=== PATIENT | male | born 1975 | race Caucasian/White ===

== ENCOUNTER 2016-07-29 07:06 | Inpatient (IN) | payer OTHER ==
[2016-07-28 08:18] VITALS: BMI 29.8
[~2016-07-29 07:06] MED LIST: FAMOTIDINE 20 MG/2 ML VIAL IV PRN; HYDROmorphone 1 MG/ML 1 ML SYRINGE IVP PRN; LIDOCAINE 1% 20 ML VIAL (10MG/ML) FOR IV START INTRADERMA PRN; MIDAZOLAM 2 MG/2 ML VIAL IV PRN
[2016-07-29] MEDS ORDERED: LACTATED RINGERS 1,000 ML IV ONE ×3 (07:39→13:54)
[2016-07-29 07:53] LABS: Glucose,Whole Blood 326 mg/dL (75-99)
[2016-07-29] MEDS ORDERED: INSULIN LISPRO (humaLOG) 300 UNIT/3 ML VIAL SQ ONE ×2 (07:59→23:50)
[2016-07-29] MEDS ORDERED: DEXAMETHASONE SOD PHOS (MDV) 100 MG/10 ML VIAL IVP ONE (08:12)
[2016-07-29] MEDS ORDERED: ONDANSETRON 4 MG/2 ML VIAL IVP ONE (08:13)
[2016-07-29 08:23] LABS: Anisocytosis Slight; Basophils % (A) 0 %; Eosinophils # (A) 0.2 k/uL (0-0.7); Eosinophils % (A) 2 %; HCT 23.9 % (39.0-53.0); HDW 3.54; HGB 8.2 gm/dL (13.0-17.5); Luc # (Auto) 0.08; Luc % (Auto) 1; Lymphocytes # (A) 1.3 k/uL (1.0-4.8); Lymphocytes % (A) 14 %; MCH 33.7 pg (25.0-35.0); MCHC 34.5 g/dL (31.0-37.0); MCV 97.5 fL (80.0-100.0); Macrocytosis Slight; Mean Platelet Volume 6.8; Monocytes # (A) 0.5 k/uL (0-1.0); Monocytes % (A) 6 %; Neutrophils # (A) 6.7 k/uL (1.3-7.7); Neutrophils % (A) 77 %; Poikilocytosis Slight; RBC 2.45 m/uL (4.30-5.90); RDW 16.6 % (11.5-15.5); WBC 8.7 k/uL (3.8-10.6); WBC (Perox) 8.73
[2016-07-29 08:36] LABS: Potassium 3.3 mmol/L (3.5-5.1)
--- NOTE | 2016-07-29 08:52 | P.GSHP ---
History of Present Illness H&P Date: 07/29/16 Chief Complaint: Incarcerated umbilical hernia, malfunctioning CAPD catheter This a 41-year-old male referred from Dr. Triana. Patient has had issues with his CAPD catheter. He's had trouble flushing and draining the catheter. He is also had issues with an incarcerated umbilical hernia. He presents today for laparoscopic repair/revision of CAPD catheter and laparoscopic repair of umbilical hernia. - Constitutional Constitutional: Reports as per HPI Past Medical History Past Medical History: Diabetes Mellitus, Dialysis, Eye Disorder, GERD/Reflux, Hyperlipidemia, Hypertension, Renal Disease Additional Past Medical History / Comment(s): migraines, stage 5 kidney disease , peritoneal dialysis daily (overnight and 2x during the day), diabetic retinopathy History of Any Multi-Drug Resistant Organisms: None Reported Additional Past Surgical History / Comment(s): periotoneal dialysis catheter insertion 03/2014, left eye cataract, mult laser retinal surgeries both eyes Past Anesthesia/Blood Transfusion Reactions: No Reported Reaction Past Psychological History: No Psychological Hx Reported Smoking Status: Never smoker Past Alcohol Use History: Occasional Past Drug Use History: None Reported - Past Family History Mother Family Medical History: No Reported History Medications and Allergies Home Medications Medication Instructions Recorded Confirmed Type ALPRAZolam [Xanax] 0.25 mg PO BID 07/28/16 07/28/16 History Aspirin [Adult Low Dose Aspirin EC] 81 mg PO DAILY 07/28/16 07/28/16 History Atorvastatin [Lipitor] 40 mg PO HS 07/28/16 07/28/16 History Calcium Acetate [Phoslo] 667 mg PO TID 07/28/16 07/28/16 History Carvedilol [Coreg] 6.25 mg PO BID 07/28/16 07/28/16 History Cetirizine HCl [Zyrtec] 10 mg PO Q48H 07/28/16 07/28/16 History Citracal Tablet 0.5 mcg PO WE 07/28/16 07/28/16 History Divalproex [Depakote] 250 mg PO BID 07/28/16 07/28/16 History Famotidine 20 mg PO BID 07/28/16 07/28/16 History Insulin Detemir [Levemir] 20 unit SQ BID 07/28/16 07/28/16 History Insulin Lispro [humaLOG] 1 - 5 units SQ AC-TID PRN 07/28/16 07/28/16 History Magnesium Oxide 400 mg PO Q48H 07/28/16 07/28/16 History Megestrol Acetate 40 mg PO HS 07/28/16 07/28/16 History Omeprazole [PriLOSEC] 20 mg PO AC-BRKFST 07/28/16 07/28/16 History Potassium Chloride [K-Tab ER] 10 meq PO BID 07/28/16 07/28/16 History Sertraline [Zoloft] 50 mg PO HS 07/28/16 07/28/16 History Allergies Allergy/AdvReac Type Severity Reaction Status Date / Time pistachio nut Allergy throat Verified 07/28/16 08:07 swelling Surgical - Exam Vital Signs Temp Pulse Resp BP Pulse Ox 98.2 F 89 18 136/79 99 07/29/16 07:27 07/29/16 07:27 07/29/16 07:27 07/29/16 07:27 07/29/16 07:27 - General well developed, no distress - Eyes PERRL - ENT normal pinna - Neck no masses - Cardiovascular Rhythm: regular - Abdomen Abdomen: soft, non tender Hernia: umbilical, incarcerated (3 cm incarcerated umbilical hernia) Results - Labs 07/29/16 08:09 07/29/16 08:09 Abnormal Lab Results - Last 24 Hours (Table) 07/29/16 07/29/16 07/29/16 Range/Units 07:51 08:09 08:09 RBC 2.45 L (4.30-5.90) m/uL Hgb 8.2 L (13.0-17.5) gm/dL Hct 23.9 L (39.0-53.0) % RDW 16.6 H (11.5-15.5) % Potassium 3.3 L (3.5-5.1) mmol/L Creatinine 5.66 H* (0.66-1.25) mg/dL POC Glucose (mg/dL) 326 H (75-99) mg/dL Diabetes panel 07/29/16 Range/Units 08:09 Potassium 3.3 L (3.5-5.1) mmol/L BUN 18 (9-20) mg/dL Creatinine 5.66 H* (0.66-1.25) mg/dL Pituitary panel 07/29/16 Range/Units 08:09 Potassium 3.3 L (3.5-5.1) mmol/L BUN 18 (9-20) mg/dL Creatinine 5.66 H* (0.66-1.25) mg/dL Adrenal panel 07/29/16 Range/Units 08:09 Potassium 3.3 L (3.5-5.1) mmol/L BUN 18 (9-20) mg/dL Creatinine 5.66 H* (0.66-1.25) mg/dL Assessment and Plan Plan: Incarcerated umbilical hernia, malfunctioning CAPD catheter. We'll perform laparoscopic repair of umbilical hernia and replacement/revision of CAPD catheter.
[2016-07-29] MEDS ORDERED: fentaNYL (PF) 50 MCG/ML 2 ML AMP ONE (08:58)
[2016-07-29] MEDS ORDERED: LABETALOL 5 MG/ML VIAL MDV ONE (08:58)
[2016-07-29] MEDS ORDERED: ROCURONIUM BROMIDE 10 MG/ML 10 ML VIAL IV ONE (08:58)
[2016-07-29] MEDS ORDERED: PROPOFOL 10 MG/ML 20 ML VIAL IV ONE (08:58)
[2016-07-29] MEDS ORDERED: NEOSTIGMINE 1 MG/ML 10 ML VIAL ONE (08:58)
[2016-07-29] MEDS ORDERED: GLYCOPYRROLATE 0.2 MG/ML 2 ML VIAL ONE (08:58)
[2016-07-29] MEDS ORDERED: MIDAZOLAM 2 MG/2 ML VIAL ONE (08:58)
[2016-07-29] MEDS ORDERED: SODIUM CHLORIDE 0.9% 50 ML with ceFAZolin 2,000 MG IV ONE ×2 (08:58)
[2016-07-29] MEDS ORDERED: BUPIVACAIN-EPI 0.25%-1:200,000 30 ML VIAL SQ ONE (09:38)
[2016-07-29] MEDS ORDERED: MINERAL OIL 1 APPLIC/ML OIL MISCELLANE ONE (09:39)
[2016-07-29] MEDS ORDERED: SODIUM CHLORIDE 0.9% 500 ML IV ONE (09:42)
--- NOTE | 2016-07-29 10:23 | P.OP ---
Date of Procedure: 07/29/16 Preoperative Diagnosis: Incarcerated umbilical hernia CAPD catheter malfunction Postoperative Diagnosis: Umbilical hernia CAPD catheter malfunction Procedure(s) Performed: Laparoscopic repair of umbilical hernia Laparoscopic placement of CVP catheter Labs removal of existing CAPD catheter Anesthesia: GETA Estimated Blood Loss (ml): 5 Pathology: none sent Condition: stable Disposition: PACU Description of Procedure: The patient's placed the operative table in the supine position. He received general anesthesia. His abdomen was prepped and draped usual sterile fashion. Using a Veress needle in the left upper quadrant the peritoneal cavity was entered. The abdomen insufflated and after adequate insufflation a 5 mm trocar was placed under direct visitation into the perineal cavity. Next the laparoscope placed into the peritoneal cavity. The patient had an umbilical hernia. His CVP catheter was visualized. CAPD catheter was in the right pelvis. At this point a 10 mm trochars placed the left lateral position. And then the umbilical hernia was repaired using 2-0 Ethibond and the still right device and timeout suture. Once the hernia was repaired. The CAPD catheter cuff site was incised and then using blunt and sharp dissection the CAPD catheter cuff at the fascial level was dissected and then the catheter was withdrawn from the peritoneal cavity. The fascia was closed with 0 Vicryl suture. Next the new CAPD catheter was introduced through the left lateral trocar site. It was placed into the pelvis of the peritoneal cavity. Another 5 mm trocar was placed in the left periumbilical area and then the catheter was drawn up through the 5 mm trocar. The fascial umbilical cuff was position at the level of the external oblique. The catheter was then tunneled and brought out through the 10 mm trocar site. The CT catheter was positioned into the pelvis. At this point the trochars withdrawn. The skin was closed interrupted 3-0 Monocryl suture. Dermabond was applied. Patient was sent to recovery in stable condition.
[2016-07-29] MEDS ORDERED: hydrALAZINE HCL 20 MG/ML 1 ML VIAL IVP ONE ×2 (10:45→11:13)
[2016-07-29] MEDS ORDERED: METOPROLOL TARTRATE 5 MG/5 ML VIAL IVP ONE ×2 (10:50→11:24)
[2016-07-29 11:26] LABS: Glucose,Whole Blood 248 mg/dL (75-99)
[2016-07-29] MEDS ORDERED: LABETALOL 5 MG/ML VIAL MDV IVP ONE (12:16)
[2016-07-29] MEDS ORDERED: NALOXONE 0.4 MG/ML 1 ML VIAL IV PRN (13:12)
[2016-07-29] MEDS ORDERED: ONDANSETRON 4 MG/2 ML VIAL IVP PRN (13:12)
[2016-07-29 17:05] LABS: Troponin I 0.015 ng/mL (0.000-0.034)
[2016-07-29 17:29] LABS: Creatine Kinase MB 13.3 ng/mL (0.0-2.4)
[2016-07-29] MEDS ORDERED: DARBEPOETIN ALFA 40 MCG/0.4 ML SYRINGE SQ SCH (20:00)
[2016-07-29 20:45] LABS: Calcium 8.1 mg/dL (8.4-10.2); Potassium 4.1 mmol/L (3.5-5.1); Total Bilirubin 0.3 mg/dL (0.2-1.3); Total Protein 4.7 g/dL (6.3-8.2)
[2016-07-29] MEDS: FAMOTIDINE 20 MG TAB PO SCH (21:25)
[2016-07-29] MEDS: CALCIUM ACETATE 667 MG CAP PO SCH (21:25)
[2016-07-29] MEDS: CARVEDILOL 6.25 MG TAB PO SCH (21:25)
[2016-07-29] MEDS: SERTRALINE 50 MG TAB PO SCH (21:25)
[2016-07-29] MEDS: POTASSIUM CHLORIDE ER 10 MEQ TAB.ER.PRT PO SCH (21:25)
[2016-07-29] MEDS: DIVALPROEX 250 MG TABLET.DR PO SCH (21:25)
[2016-07-29] MEDS: MEGESTROL 40 MG TAB PO SCH (21:26)
[2016-07-29] MEDS: ALPRAZolam 0.25 MG TAB PO SCH (21:28)
[2016-07-29] MEDS: DIALYSIS (PERITONL) DEX 4.25% 2,000 ML INTRAPERIT SCH (22:00)
[2016-07-29 22:08] LABS: Glucose,Whole Blood 346 mg/dL (75-99)
[2016-07-29 22:12] LABS: Troponin I 0.013 ng/mL (0.000-0.034)
[2016-07-29 22:15] LABS: Creatine Kinase MB 10.8 ng/mL (0.0-2.4)
[2016-07-29] MEDS: ATORVASTATIN 40 MG TAB PO SCH (23:16)
[2016-07-29] MEDS: INSULIN DETEMIR 100 UNIT/ML 10 ML VIAL SQ SCH (23:39)
--- NOTE | 2016-07-29 23:51 | HP ---
DATE OF ADMISSION: 07/29/2016 CHIEF COMPLAINT: ST-T changes on the EKG. HISTORY OF PRESENT ILLNESS: This is a 41-year-old gentleman with a past medical history of diabetes mellitus, type 2, history of chronic renal failure, stage V, on peritoneal dialysis, history of GERD, hypertension, hyperlipidemia, history of migraines, being followed by Dr. Barlow in the outpatient setting. He was apparently receiving dialysis catheter replacement as well as laparoscopic repair of umbilical hernia by Dr. Maxwell. During the procedure ST-T change was suspected and EKG also confirmed ST-T changes in the anterior leads. Patient was admitted for further evaluation and observation also. There is no history of any fever, rigor or chills, no history of headache, loss of consciousness, chest pain, palpitation, seizures. PAST MEDICAL HISTORY: 1. History of diabetes mellitus, type 2, on peritoneal dialysis. 2. History of GERD. 3. Hypertension. 4. Hyperlipidemia. 5. History of migraine. Medications prior to admission include: 1. Humalog 1 to 5 before meals t.i.d. p.r.n. 2. Levemir 20 units subcutaneously b.i.d. 3. Citracal 0.5 mg on Wednesdays. 4. Zoloft 50 mg at bedtime. 5. K-Tab ER 10 mEq p.o. b.i.d. 6. Prilosec 20 mg before breakfast. 7. Megace 40 mg p.o. at bedtime. 8. Magnesium oxide 400 mg p.o. q.48 hours. 9. Famotidine 20 mg p.o. b.i.d. 10. Depakote 250 mg p.o. b.i.d. 11. Zyrtec 10 mg p.o. q.48 hours. 12. Coreg 6.25 mg p.o. b.i.d. 13. PhosLo 667 p.o. t.i.d. 14. Lipitor 40 mg at bedtime. 15. Aspirin 81 mg p.o. daily. 16. Xanax 0.25 p.o. b.i.d. 17. Hydrocodone 7.5 mg q.4 p.r.n. ALLERGIES: PISTACHIO NUTS. FAMILY HISTORY: No history of heart disease or strokes in the family. SOCIAL HISTORY: No history of smoking. No history of alcohol intake. REVIEW OF SYSTEMS: ENT: No diminishing hearing. No diminished vision. CARDIOVASCULAR SYSTEM: As mentioned earlier. RESPIRATORY SYSTEM: As mentioned earlier. GI: As mentioned earlier. : As mentioned earlier. NERVOUS SYSTEM: No numbness or weakness. ALLERGY/IMMUNOLOGY: No asthma, hayfever. MUSCULOSKELETAL: As mentioned earlier. HEMATOLOGY/ONCOLOGY: No history of anemia. ENDOCRINE: Diabetes mellitus. CONSTITUTIONAL: As mentioned earlier. DERMATOLOGY: Negative. RHEUMATOLOGY: Negative. PSYCHIATRY: As mentioned earlier. PHYSICAL EXAMINATION: Patient is alert and oriented x3. Pulse is 103, blood pressure 160/84, respiration 16, temperature 98.2, pulse ox 97% on room air. HEENT: Conjunctivae normal. Oral mucosa moist. NECK: No jugular venous distention. No carotid bruit. No lymph node enlargement. CARDIOVASCULAR SYSTEM: S1, S2 muffled. No S3. ejection systolic murmur. RESPIRATORY SYSTEM: Breath sounds diminished at the bases. No rhonchi. No crackles. ABDOMEN: Soft. Status post surgery. LEGS: No edema. No swelling. NERVOUS SYSTEM: Higher functions as mentioned earlier. Moves all 4 limbs. No focal motor or sensory deficit. LYMPHATICS: No lymph node palpable in neck, axillae or groin. SKIN: No ulcer, rash, bleeding. JOINTS: No active deforming arthropathy. LABS: WBC 8.6, hemoglobin 8.2. Otherwise, creatinine is 5.66. CK-MB is 13.8. Troponin 0.015. Accu-Cheks are 248. ASSESSMENT: 1. ST-T changes on the EKG, possibly unstable angina. 2. Increased CK-MB with normal troponins. 3. Chronic renal failure, on peritoneal dialysis. 4. Diabetes mellitus, type 1. 5. Hypokalemia. 6. Anemia, normocytic; anemia of chronic renal disease. 7. Laparoscopic repair of umbilical hernia and laparoscopic placement of a CVP catheter today. 8. History of chronic kidney disease, stage V. 9. History of gastroesophageal reflux disease. 10. History of diabetic retinopathy. 11. History of hypertension. 12. Hyperlipidemia. 13. History of migraine. 14. History of left eye cataract. 15. History of multiple laser retinal surgeries. 16. FULL CODE. RECOMMENDATIONS AND DISCUSSION: This 41-year-old gentleman who presented after surgery, at this time I recommend continuing the current medication, continuing with symptomatic treatment. Complete the troponin x3. Resume the home medication. Monitor blood sugars closely. Cardiology consultation. The EKG did show some ST-T changes. Will continue to monitor to rule out the possibility of acute coronary event. Prognosis guarded because of multiple complex medical issues. Further recommendations to follow. Discussed with family and patient, who understand and agree. A copy of this dictation is being forwarded to Dr. Barlow, who is the primary physician. FABIANA
[2016-07-30] MEDS: DIALYSIS (PERITONL) DEX 4.25% 2,000 ML INTRAPERIT SCH ×3 (00:06→16:22)
[2016-07-30 03:40] LABS: Anisocytosis Slight; Basophils % (A) 0 %; CH 33.6; Eosinophils % (A) 0 %; HCT 23.5 % (39.0-53.0); HDW 3.38; HGB 8.1 gm/dL (13.0-17.5); Luc % (Auto) 1; Lymphocytes # (A) 1.2 k/uL (1.0-4.8); Lymphocytes % (A) 10 %; MCH 34.2 pg (25.0-35.0); MCHC 34.6 g/dL (31.0-37.0); MCV 98.9 fL (80.0-100.0); Macrocytosis Slight; Mean Platelet Volume 6.8; Monocytes # (A) 0.7 k/uL (0-1.0); Monocytes % (A) 5 %; Neutrophils # (A) 10.5 k/uL (1.3-7.7); Neutrophils % (A) 84 %; RBC 2.38 m/uL (4.30-5.90); WBC 12.5 k/uL (3.8-10.6); WBC (Perox) 12.91
[2016-07-30 03:58] LABS: Calcium 8.3 mg/dL (8.4-10.2); Potassium 3.9 mmol/L (3.5-5.1)
[2016-07-30 04:14] LABS: Troponin I 0.013 ng/mL (0.000-0.034)
[2016-07-30 04:26] LABS: Creatine Kinase MB 9.6 ng/mL (0.0-2.4)
[2016-07-30 07:19] LABS: Glucose,Whole Blood 142 mg/dL (75-99)
[2016-07-30 08:00] LABS: Hemoglobin A1C 8.6 % (4.2-6.1)
[2016-07-30] MEDS: HYDROcodone/APAP 5-325MG 1 EACH TAB PO PRN (09:09)
[2016-07-30] MEDS: LACTATED RINGERS 1,000 ML IV SCH ×2 (09:12→12:01)
[2016-07-30] MEDS: CARVEDILOL 6.25 MG TAB PO SCH ×2 (11:17→21:22)
[2016-07-30] MEDS: INSULIN LISPRO (humaLOG) 300 UNIT/3 ML VIAL SQ SCH ×4 (11:18→21:23)
[2016-07-30] MEDS: CALCIUM ACETATE 667 MG CAP PO SCH ×3 (11:20→21:22)
[2016-07-30] MEDS: hydrALAZINE HCL 50 MG TAB PO SCH ×3 (11:21→21:22)
[2016-07-30] MEDS: FAMOTIDINE 20 MG TAB PO SCH (11:21)
[2016-07-30] MEDS: DIVALPROEX 250 MG TABLET.DR PO SCH ×2 (11:21→21:22)
[2016-07-30] MEDS: ASPIRIN 81 MG CHEW PO SCH (11:21)
[2016-07-30] MEDS: PANTOPRAZOLE 40 MG TABLET PO SCH (11:21)
[2016-07-30] MEDS: amLODIPine 5 MG TAB PO SCH ×2 (11:21→21:22)
[2016-07-30] MEDS: LORATADINE 10 MG TAB PO SCH (11:22)
[2016-07-30] MEDS: MAGNESIUM OXIDE 400 MG TAB PO SCH (11:22)
[2016-07-30] MEDS: POTASSIUM CHLORIDE ER 10 MEQ TAB.ER.PRT PO SCH ×2 (11:23→21:21)
[2016-07-30 12:08] LABS: Glucose,Whole Blood 125 mg/dL (75-99)
[2016-07-30] MEDS: ALPRAZolam 0.25 MG TAB PO SCH ×2 (12:25→21:21)
[2016-07-30] MEDS: INSULIN DETEMIR 100 UNIT/ML 10 ML VIAL SQ SCH ×2 (12:26→21:21)
--- NOTE | 2016-07-30 14:52 | CONS ---
DATE OF CONSULTATION: REASON FOR CONSULTATION: End-stage renal disease. HISTORY OF PRESENT ILLNESS: Patient is a 41-year-old white male with a history of end-stage renal disease on peritoneal dialysis. He was seen by Dr. Maxwell for malfunctioning PD catheter and he had the catheter replaced and repair of the small hernia as well. Patient has had issues with chronic fluid overload, significant hyperglycemia at home and uncontrolled blood sugars. His blood pressure have also been elevated. I have discussed with him on multiple occasions to switch to hemodialysis but patient has not been very keen on switching to hemodialysis as he lives on [facility] and it will be difficult for him to come for treatment, especially during the winter. Last night there was significant weeping noted around the PD catheter; therefore peritoneal dialysis was not started. I did speak to Dr. Maxwell this morning and he will start with low volume exchanges at about 1 liter at a time. If the patient is not able to tolerate the peritoneal dialysis and the leaking persists, we will switch him to temporary hemodialysis while the new catheter heals. Even if there is no leaking I believe patient will need to be switched to hemodialysis as it will not be able to get his volume status under control given the significant volume overload. PAST MEDICAL HISTORY: End-stage renal disease, on peritoneal dialysis, gastroesophageal reflux disease, Type 2 diabetes, maintained on insulin, hypertension, hyperlipidemia, chronic kidney disease bone mineral disorder, chronic anemia, anemia of chronic disease. Medications prior to admission included: 1. Insulin. 2. Zoloft. 3. Potassium. 4. Prilosec. 5. Depakote. 6. Pepcid. 7. Magnesium. 8. Megace. 9. Zyrtec. 10. Coreg. 11. PhosLo. 12. Lipitor. 13. Aspirin. 14. Xanax. 15. [place]. ALLERGIES INCLUDE ( ). Family history is negative for kidney disease, SOCIAL HISTORY: Negative for smoking, drug abuse or alcohol abuse. REVIEW OF SYSTEMS: As per HPI. Other systems negative. On examination, the patient is currently comfortable, lying in bed, not in any acute distress. Blood pressure remains elevated at 231/109, heart rate 104 per minute. He is afebrile. Examination of the heart S1 and S2. Examination of the lungs: Bilateral breath sounds are heard. ABDOMEN: Soft, nontender. New catheter is in place. Examination of lower extremities shows 3 to 4+ edema bilaterally. [employer] exam is grossly intact. Labs show sodium 127, potassium 3.9, BUN 23, serum creatinine 6.5. Hemoglobin 8.1 g/dL. Troponin was 0.013. CKMB was 10.8. ASSESSMENT: 1. End-stage renal disease, on peritoneal dialysis, status post new PD catheter placement. Will start low-volume exchange and; however, I feel the patient will benefit from short-term hemodialysis and we can allow the catheter to seal. For now, I will start with 1 liter exchanges but this may not be enough to help correct his volume status. 2. Severe volume overload with no significant urine output. This needs to be addressed via dialysis and this is another reason why patient needs to switch to hemodialysis at least temporarily. We will try with 4.25% solution with starting at 1 liter exchanges. 3. Hypervolemic hyponatremia, expect improvement with improving volume status. 4. Anemia with no active bleeding noted. Anemia of chronic disease. The patient has had previous GI work-up. 5. Uncontrolled hypertension, partly volume sensitive. PLAN: Try 1 liter exchanges but I am strongly leaning toward starting hemodialysis, mainly given significant volume overload. It will also allow the catheter to seal over the next week or so and the blood pressure will also be better controlled with improved volume status.
--- NOTE | 2016-07-30 16:32 | P.PN ---
Progress Note - Text The patient's CAPD catheter site is clean. Apparently had some drainage from the skin site yesterday. On exam is lesser stable. His abdomen soft. Patient is currently arguing with the dialysis nurse whether or not he needs hemodialysis. I discussed with them that he should have temporary hemodialysis to bridge him until he can use his CAPD catheter. The patient will be transferred to the medical service.
[2016-07-30 17:09] LABS: Glucose,Whole Blood 82 mg/dL (75-99)
--- NOTE | 2016-07-30 17:17 | CONS ---
DATE OF CONSULTATION: Mr. Macario is a 41-year-old patient with end-stage renal disease on peritoneal dialysis. His primary care physician is Dr. Barlow. He has hypertension, hyperlipidemia, came into the hospital for inguinal hernia surgery and repositioning of his peritoneal dialysis catheter. He was found to be hypertensive and I was asked to see him regarding hypertension. This gentleman has hyperlipidemia, hypertension which is uncontrolled, type 2 diabetes mellitus and also end-stage renal disease on peritoneal dialysis. Please refer to Dr. Triana's detailed note for other information. PAST MEDICAL HISTORY: 1. End-stage renal disease and peritoneal dialysis. 2. Hypertension. 3. Hyperlipidemia. 4. Diabetes mellitus. Medications at home include: 1. Insulin. 2. Levemir. 3. Humalog. 4. Zoloft. 5. Megace. 6. Zyrtec. 7. Coreg. 8. Atorvastatin. 9. Aspirin. 10. Hydrocodone. On examination, blood pressure is 190/80, pulse rate is about 70 per minute, regular. HEENT: Unremarkable. Fundus was not examined by me. Neck is supple. There is JVD of 1 cm. No carotid bruit. Heart exam reveals S1, S2 with a short systolic murmur. Lungs reveal diminished air entry in bilateral lung elizabeth. ABDOMEN: Soft, nontender. The peroneal dialysis catheter is evident. There is some tenderness around that area. Lungs reveal diminished air entry. ABDOMEN: Soft, nontender. Lower extremities revealed trace edema, diminished pulses. CENTRAL NERVOUS SYSTEM: Grossly no focal deficits. IMPRESSION: 1. Uncontrolled hypertension. 2. End-stage renal disease on hemodialysis. 3. Type 2 diabetes mellitus. 4. History of degenerative joint disease. RECOMMENDATIONS: I am recommending Norvasc and hydralazine in addition to the Coreg for blood pressure control and this will be administered now and if blood pressure control is well controlled patient can be discharged. I will continue to see him as needed from a cardiac standpoint. Thank you very much for the consult.
--- NOTE | 2016-07-30 17:25 | PN ---
Patient is a 41-year-old with diabetes mellitus, end-stage renal disease, on peritoneal dialysis. He came in for elective hernia repair. His pain is well controlled. During the procedure there were some suspicious ST-T wave changes, because of which Cardiology evaluated the patient. Patient has volume overload secondary to end-stage renal disease, which should improve with exchanges. Patient also has hyponatremia due to hypervolemic hyponatremia. Nephrology evaluated the patient; patient may require at least temporary hemodialysis. Patient will be transferred to a regular floor. To address his renal issues, patient may need to stay in the hospital. REVIEW OF SYSTEMS: CARDIOVASCULAR: No chest pain, no orthopnea, no PND, no palpitations. PULMONARY: Denied any shortness of breath. No cough or hemoptysis. GASTROINTESTINAL: No diarrhea, nausea or vomiting. No abdominal pain. Normoactive bowel sounds. NEUROLOGIC: No headaches, no weakness, no numbness. Medications were reviewed. PHYSICAL EXAMINATION: VITAL SIGNS: Temperature 98.0, pulse of 104, respiratory rate of 16. Blood pressure is 156/83. Saturating at 98% on room air. GENERAL: The patient is alert and oriented x3, not in any acute distress. Well developed, well nourished. HEENT: Pupils are round and equally reacting to light. EOMI. No scleral icterus. No conjunctival pallor. Normocephalic, atraumatic. No pharyngeal erythema. No thyromegaly. CARDIOVASCULAR: S1 and S2 present. No murmurs, rubs, or gallops. PULMONARY: Chest is clear to auscultation, no wheezing or crackles. ABDOMEN: Defer to Surgery. MUSCULOSKELETAL: No joint swelling or deformity. EXTREMITIES: No cyanosis, clubbing, or pedal edema. NEUROLOGICAL: Gross neurological examination did not reveal any focal deficits. SKIN: No rashes. ASSESSMENT AND PLAN: 1. Volume overload and pulmonary edema secondary to end-stage renal disease and anuria, which is expected to improve with peritoneal dialysis or hemodialysis, as mentioned above. Patient has some social logistics, because of which he cannot be on hemodialysis. Refer to social work note for that. 2. End-stage renal disease, peritoneal dialysis-dependent. Nephrology is following the patient. Further management as per them. 3. Type 1 diabetes mellitus with diabetic nephropathy. Blood sugars are actually getting better at this point of time. Continue with present regimen and titrate accordingly. Patient's hemoglobin A1c is 8.6 consistent with uncontrolled blood sugars. 4. Leukocytosis; appears to be reactive. 5. Hypervolemic hyponatremia. 6. Diabetic retinopathy. 7. Hyperlipidemia. 8. Metabolic bone disease. 9. Recent hernia repair. Regarding that, patient is otherwise clinically doing okay. 10. Hyperlipidemia. 11. Depression, for which I will go ahead and continue his home medications. PLAN: As mentioned above.
[2016-07-30] MEDS ORDERED: CITRACAL PO SCH (18:28)
[2016-07-30 21:19] LABS: Glucose,Whole Blood 49 mg/dL (75-99)
[2016-07-30] MEDS: SERTRALINE 50 MG TAB PO SCH (21:21)
[2016-07-30] MEDS: ATORVASTATIN 40 MG TAB PO SCH (21:22)
[2016-07-30] MEDS ORDERED: DEXTROSE 50%-WATER 50 ML SYRINGE IVP ONE (21:25)
[2016-07-30] MEDS ORDERED: DEXTROSE 50%-WATER 50 ML SYRINGE IVP STA (21:26)
[2016-07-30 21:49] LABS: Glucose,Whole Blood 121 mg/dL (75-99)
[2016-07-31] MEDS ORDERED: hydrALAZINE HCL 20 MG/ML 1 ML VIAL IVP PRN (00:49)
[2016-07-31] MEDS: LACTATED RINGERS 1,000 ML IV SCH (01:58)
[2016-07-31 02:02] LABS: Glucose,Whole Blood 73 mg/dL (75-99)
[2016-07-31 06:47] LABS: Glucose,Whole Blood 68 mg/dL (75-99)
[2016-07-31 07:32] LABS: Anisocytosis Slight; CH 33.5; CHCM 33.9; HCT 25.4 % (39.0-53.0); HDW 3.33; HGB 8.9 gm/dL (13.0-17.5); MCH 34.6 pg (25.0-35.0); MCHC 34.9 g/dL (31.0-37.0); MCV 99.1 fL (80.0-100.0); Macrocytosis Slight; Mean Platelet Volume 6.7; RBC 2.57 m/uL (4.30-5.90); WBC 13.1 k/uL (3.8-10.6)
[2016-07-31 07:56] LABS: Glucose,Whole Blood 83 mg/dL (75-99)
[2016-07-31 07:59] LABS: Calcium 8.2 mg/dL (8.4-10.2); Potassium 4.5 mmol/L (3.5-5.1)
[2016-07-31] MEDS: DIVALPROEX 250 MG TABLET.DR PO SCH ×2 (09:56→20:56)
[2016-07-31] MEDS: POTASSIUM CHLORIDE ER 10 MEQ TAB.ER.PRT PO SCH (09:56)
[2016-07-31] MEDS: CARVEDILOL 6.25 MG TAB PO SCH ×2 (09:56→19:31)
[2016-07-31] MEDS: hydrALAZINE HCL 50 MG TAB PO SCH ×3 (09:56→21:26)
[2016-07-31] MEDS: amLODIPine 5 MG TAB PO SCH ×2 (09:57→20:57)
[2016-07-31] MEDS: FAMOTIDINE 20 MG TAB PO SCH (09:57)
[2016-07-31] MEDS: PANTOPRAZOLE 40 MG TABLET PO SCH (09:57)
[2016-07-31] MEDS: CALCIUM ACETATE 667 MG CAP PO SCH ×3 (09:57→19:30)
[2016-07-31] MEDS: ALPRAZolam 0.25 MG TAB PO SCH ×2 (10:03→20:56)
[2016-07-31] MEDS: INSULIN DETEMIR 100 UNIT/ML 10 ML VIAL SQ SCH ×2 (10:03→22:07)
[2016-07-31] MEDS: INSULIN LISPRO (humaLOG) 300 UNIT/3 ML VIAL SQ SCH ×4 (10:03→22:08)
[2016-07-31] MEDS: ASPIRIN 81 MG CHEW PO SCH (10:03)
[2016-07-31 12:18] LABS: Glucose,Whole Blood 111 mg/dL (75-99)
--- NOTE | 2016-07-31 14:16 | XR ---
EXAMINATION TYPE: XR chest 1V DATE OF EXAM: 07/31/2016 2:12 PM COMPARISON: NONE HISTORY: Chest pain TECHNIQUE: Single frontal view of the chest is obtained. FINDINGS: There is no focal air space opacity, pleural effusion, or pneumothorax seen. The cardiac silhouette size is within normal limits. The osseous structures are intact. IMPRESSION: 1. No acute process.
--- NOTE | 2016-07-31 15:43 | P.PN ---
Subjective Patient is seen in follow-up for end-stage renal disease. He is maintained on peritoneal dialysis. Patient had a malfunctioning PD catheter and had a new catheter placed this admission. He also had a hernia repair. Peritoneal dialysis has not been initiated since the new catheter has been placed. Patient 's currently resting in bed. Denies any chest pain or shortness of breath. He is eager to go home. Denies any vomiting or diarrhea. Pain is controlled. Vital signs are stable. General: The patient appeared well nourished and normally developed. HEENT: Head exam is unremarkable. Neck is without jugular venous distension. LUNGS: Lungs are clear to auscultation and percussion. Breath sounds decreased. HEART: Rate and Rhythm are regular. First and second heart sounds normal. No murmurs, rubs or gallops. ABDOMEN: Abdominal exam reveals normal bowel sounds. Non-tender and non- distended. No evidence of peritonitis. EXTREMITITES: 1+ edema. Objective - Vital Signs Vital signs: Vital Signs Temp 98.1 F 07/31/16 11:39 Pulse 107 H 07/31/16 11:39 Resp 18 07/31/16 11:39 BP 163/91 07/31/16 11:39 Pulse Ox 98 07/31/16 11:39 Intake & Output 07/30/16 07/31/16 07/31/16 18:59 06:59 18:59 Intake Total 1140 250 240 Balance 1140 250 240 Intake: Oral 1140 250 240 Other: Voiding Method CAPD CAPD Bedside Commode CAPD # Voids 0 - Labs CBC & Chem 7: 07/31/16 07:16 07/31/16 07:16 Labs: Abnormal Lab Results - Last 24 Hours (Table) 07/30/16 07/30/16 07/31/16 Range/Units 21:18 21:47 02:00 WBC (3.8-10.6) k/uL RBC (4.30-5.90) m/uL Hgb (13.0-17.5) gm/dL Hct (39.0-53.0) % RDW (11.5-15.5) % Sodium (137-145) mmol/L Chloride (98-107) mmol/L BUN (9-20) mg/dL Creatinine (0.66-1.25) mg/dL POC Glucose (mg/dL) 49 L 121 H 73 L (75-99) mg/dL Calcium (8.4-10.2) mg/dL 07/31/16 07/31/16 07/31/16 Range/Units 06:44 07:16 07:16 WBC 13.1 H (3.8-10.6) k/uL RBC 2.57 L (4.30-5.90) m/uL Hgb 8.9 L (13.0-17.5) gm/dL Hct 25.4 L (39.0-53.0) % RDW 17.0 H (11.5-15.5) % Sodium 129 L (137-145) mmol/L Chloride 94 L (98-107) mmol/L BUN 31 H (9-20) mg/dL Creatinine 7.58 H* (0.66-1.25) mg/dL POC Glucose (mg/dL) 68 L (75-99) mg/dL Calcium 8.2 L (8.4-10.2) mg/dL 07/31/16 Range/Units 12:12 WBC (3.8-10.6) k/uL RBC (4.30-5.90) m/uL Hgb (13.0-17.5) gm/dL Hct (39.0-53.0) % RDW (11.5-15.5) % Sodium (137-145) mmol/L Chloride (98-107) mmol/L BUN (9-20) mg/dL Creatinine (0.66-1.25) mg/dL POC Glucose (mg/dL) 111 H (75-99) mg/dL Calcium (8.4-10.2) mg/dL Assessment and Plan Plan: Assessment: #1. End-stage renal disease maintained on peritoneal dialysis. #2. Malfunctioning PD catheter status post new catheter placement as well as a hernia repair. #3. Hypertension with chronic kidney disease. #4. Chronic kidney disease mineral bone disease. #5. Insulin-dependent diabetes mellitus. #6. Volume overload. #7. Hypervolemic hyponatremia. Plan: Start 1 L peritoneal dialysis exchanges with 4.25 dextrose solution every 4 hours. I had a detailed discussion with the patient to transition over to hemodialysis temporarily for better volume and blood pressure control and to also allow the new peritoneal dialysis catheter to heal. He is refusing and absolutely does not want to do hemodialysis at this time. Maintain PhosLo with meals. Case was also discussed with Gen. surgery.
[2016-07-31] MEDS: DIALYSIS (PERITONL) DEX 4.25% 2,000 ML INTRAPERIT SCH ×2 (17:14→20:56)
[2016-07-31 17:27] LABS: Glucose,Whole Blood 137 mg/dL (75-99)
[2016-07-31 20:16] LABS: Glucose,Whole Blood 192 mg/dL (75-99)
[2016-07-31] MEDS: MEGESTROL 40 MG TAB PO SCH (20:56)
[2016-07-31] MEDS: SERTRALINE 50 MG TAB PO SCH (20:56)
[2016-07-31] MEDS: ATORVASTATIN 40 MG TAB PO SCH (20:57)
[2016-08-01] MEDS ORDERED: DIALYSIS DEX INTRAPERIT ONE
[2016-08-01] MEDS: DIALYSIS (PERITONL) DEX 4.25% 2,000 ML INTRAPERIT SCH ×4 (04:51→12:15)
[2016-08-01] MEDS: HYDROcodone/APAP 5-325MG 1 EACH TAB PO PRN (05:03)
[2016-08-01 07:40] LABS: Glucose,Whole Blood 362 mg/dL (75-99)
--- NOTE | 2016-08-01 07:56 | DS ---
DATE OF ADMISSION: 07/30/2016 DATE OF DISCHARGE: Patient is a 41-year-old with end-stage renal disease on hemodialysis. Patient underwent hernia repair and peritoneal dialysis catheter replacement and patient is clinically doing well at this point of time. If approved by nephrology and surgery, patient will be reinitiated back on his peroneal dialysis initially starting with low volume. If cleared by nephrology, patient will be discharged today. Patient is otherwise clinically doing well. Cardiology evaluated the patient because of some nonspecific ST-T wave changes. No further recommendations from them. I am adding amlodipine for his hypertensive regimen. REVIEW OF SYSTEMS: CARDIOVASCULAR: No chest pain, no orthopnea, no PND, no palpitations. PULMONARY: Denied any shortness of breath. No cough or hemoptysis. GASTROINTESTINAL: No diarrhea, nausea or vomiting. No abdominal pain. Normoactive bowel sounds. NEUROLOGIC: No headaches, no weakness, no numbness. Medications are reviewed. PHYSICAL EXAMINATION: Vital signs are stable . GENERAL: The patient is alert and oriented x3, not in any acute distress. Well developed, well nourished. HEENT: Pupils are round and equally reacting to light. EOMI. No scleral icterus. No conjunctival pallor. Normocephalic, atraumatic. No pharyngeal erythema. No thyromegaly. CARDIOVASCULAR: S1 and S2 present. No murmurs, rubs, or gallops. PULMONARY: Chest is clear to auscultation, no wheezing or crackles. ABDOMEN: Soft, nontender, nondistended, normoactive bowel sounds. No palpable organomegaly. MUSCULOSKELETAL: No joint swelling or deformity. EXTREMITIES: No cyanosis, clubbing, or pedal edema. NEUROLOGICAL: Gross neurological examination did not reveal any focal deficits. SKIN: No rashes. FINAL DIAGNOSES: 1. Minimal volume overload secondary to end stage renal disease, which improved at this point of time. Decision regarding temporary hemodialysis versus resuming peritoneal dialysis as per nephrology. The decision was made. Patient will be discharged today. 2. End-stage renal disease, peritoneal dialysis dependent. 3. 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 4. Leukocytosis, reactive in nature. 5. Hypervolemic hyponatremia which is improving at this point of time. Expected to improve with dialysis. 6. Hyperlipidemia. 7. Metabolic bone disease. 8. Recent hernia repair and replacement of peritoneal dialysis catheter placement. 9. Depression. Patient will be discharged today if cleared by nephrology. Patient will follow with Dr. Blaze Maxwell, Nephrology and primary care physician in about 3 to 7 days. Please refer to my depart summary for further details of discharge medications. Activity as tolerated. Cardiac, diabetic 1800 calorie and renal diet. Spent greater than 35 minutes in total discharge process.
[2016-08-01 08:04] VITALS: RESP 18
[2016-08-01 08:20] LABS: Anisocytosis Slight; Basophils % (A) 0 %; CH 34.4; Eosinophils # (A) 0.1 k/uL (0-0.7); Eosinophils % (A) 1 %; HCT 24.5 % (39.0-53.0); HDW 3.14; HGB 8.2 gm/dL (13.0-17.5); Luc # (Auto) 0.07; Luc % (Auto) 1; Lymphocytes % (A) 8 %; MCH 34.1 pg (25.0-35.0); MCHC 33.6 g/dL (31.0-37.0); MCV 101.3 fL (80.0-100.0); Macrocytosis Slight; Mean Platelet Volume 6.8; Monocytes # (A) 0.9 k/uL (0-1.0); Monocytes % (A) 8 %; Neutrophils # (A) 9.5 k/uL (1.3-7.7); Neutrophils % (A) 82 %; RBC 2.42 m/uL (4.30-5.90); RDW 17.1 % (11.5-15.5); WBC 11.5 k/uL (3.8-10.6); WBC (Perox) 12.11
[2016-08-01 08:25] VITALS: BP 160/85; PULSE 107; TEMP 97.9
[2016-08-01] MEDS: ASPIRIN 81 MG CHEW PO SCH (08:51)
[2016-08-01] MEDS: INSULIN DETEMIR 100 UNIT/ML 10 ML VIAL SQ SCH (08:51)
[2016-08-01] MEDS: ALPRAZolam 0.25 MG TAB PO SCH (08:51)
[2016-08-01] MEDS: hydrALAZINE HCL 50 MG TAB PO SCH (08:51)
[2016-08-01] MEDS: FAMOTIDINE 20 MG TAB PO SCH (08:51)
[2016-08-01] MEDS: INSULIN LISPRO (humaLOG) 300 UNIT/3 ML VIAL SQ SCH ×2 (08:52→12:02)
[2016-08-01] MEDS: MAGNESIUM OXIDE 400 MG TAB PO SCH (08:52)
[2016-08-01] MEDS: CALCIUM ACETATE 667 MG CAP PO SCH ×2 (08:53→12:02)
[2016-08-01] MEDS: CARVEDILOL 6.25 MG TAB PO SCH (08:53)
[2016-08-01] MEDS: PANTOPRAZOLE 40 MG TABLET PO SCH (08:54)
[2016-08-01] MEDS: amLODIPine 5 MG TAB PO SCH (08:54)
[2016-08-01] MEDS: DIVALPROEX 250 MG TABLET.DR PO SCH (08:54)
[2016-08-01 11:11] LABS: Glucose,Whole Blood 302 mg/dL (75-99)
--- NOTE | 2016-08-01 11:26 | PN ---
Patient is seen for followup for end-stage renal disease. He is status post new PD catheter placement for malfunctioning PD catheter and repair of small hernia. Patient has been on 1 L exchanges q.4 hours with 4.25% solution and he has had about 200 to 300 mL of UF with every treatment. He is currently with no complaints. There has been no leaking around the catheter site. On examination, blood pressure is 160/85, heart rate 107 per minute. He is afebrile. Examination of the heart, S1 and S2. Examination of the lungs, bilateral breath sounds are heard. Abdomen is soft, nontender. Examination of lower extremities shows chronic edema. [employer] exam is grossly intact. Labs show hemoglobin 8.2 g/dL. ASSESSMENT: 1. End-stage renal disease on peritoneal dialysis, currently using low-volume exchanges. We will try to use 1.5 L for the next exchange. Patient can be discharged from a nephrology standpoint. He will continue to use manual low volume exchanges as outpatient and gradually advance as tolerated. 2. Volume overload, slightly improved. 3. Hypertension, partly volume sensitive. Currently, slightly improved on admission. PLAN: Patient can be discharged from nephrology standpoint. He will continue with manual exchanges as outpatient.
[2016-08-01] MEDS: LORATADINE 10 MG TAB PO SCH (12:01)
--- NOTE | 2016-08-01 13:50 | DS ---
DATE OF ADMISSION: 07/30/2016 DATE OF DISCHARGE: Patient is a 41-year-old admitted for hernia repair and peritoneal dialysis catheter change and that was done a couple days ago and I discharged the patient yesterday but patient ended up staying here because Nephrology wanted to do exchanges peritoneal dialysis, start the peritoneal dialysis and exchanged yesterday and watch him one more night. Patient is cleared for discharge today. Patient was seen and examined on the day of discharge. Vitals are stable. PHYSICAL EXAMINATION: GENERAL: The patient is alert and oriented x3, not in any acute distress. Well developed, well nourished. HEENT: Pupils are round and equally reacting to light. EOMI. No scleral icterus. No conjunctival pallor. Normocephalic, atraumatic. No pharyngeal erythema. No thyromegaly. CARDIOVASCULAR: S1 and S2 present. No murmurs, rubs, or gallops. PULMONARY: Chest is clear to auscultation, no wheezing or crackles. ABDOMEN: Soft, nontender, nondistended, normoactive bowel sounds. No palpable organomegaly. MUSCULOSKELETAL: No joint swelling or deformity. EXTREMITIES: No cyanosis, clubbing, or pedal edema. NEUROLOGICAL: Gross neurological examination did not reveal any focal deficits. SKIN: No rashes. For the rest of the details of hospitalization course and medical problems, please refer to my discharge summary from yesterday. Consider that discharge summary as progress note. Spent greater than 35 minutes again today in total discharge process.
== END 2016-08-01 14:35 | disposition home or self-care (01) | DRG 907 ==
LOC: OR 07:06 → 3OBS 10:17 → OR 07-30 11:26 → 3OBS 07-30 11:26 → 5MS5E 07-31 16:24
PROVIDERS: ADMIT Hospitalist; ATTEND Hospitalist
PROC: 3E1M39Z Irrigation of Peritoneal Cavity using Dialysate, Percutaneous Approach (ICD-10-PCS; principal; 2016-07-30)
PROC: 0WPG43Z Removal of Infusion Device from Peritoneal Cavity, Percutaneous Endoscopic Approach (ICD-10-PCS; principal; 2016-07-30)
PROC: 0WHG43Z Insertion of Infusion Device into Peritoneal Cavity, Percutaneous Endoscopic Approach (ICD-10-PCS; principal; 2016-07-30)
PROC: 0WQF4ZZ Repair Abdominal Wall, Percutaneous Endoscopic Approach (ICD-10-PCS; principal; 2016-07-30)
DX: T85.611A Breakdown (mechanical) of intraperitoneal dialysis catheter, initial encounter (principal); N18.6 End stage renal disease; E88.89 Other specified metabolic disorders; I12.0 Hypertensive chronic kidney disease with stage 5 chronic kidney disease or end stage renal disease; E10.21 Type 1 diabetes mellitus with diabetic nephropathy; K42.0 Umbilical hernia with obstruction, without gangrene; E87.1 Hypo-osmolality and hyponatremia; E10.40 Type 1 diabetes mellitus with diabetic neuropathy, unspecified; D63.1 Anemia in chronic kidney disease; Y82.8 Other medical devices associated with adverse incidents; D72.829 Elevated white blood cell count, unspecified; E10.22 Type 1 diabetes mellitus with diabetic chronic kidney disease; E10.319 Type 1 diabetes mellitus with unspecified diabetic retinopathy without macular edema; E78.5 Hyperlipidemia, unspecified; E87.6 Hypokalemia; F32.9 Major depressive disorder, single episode, unspecified; K21.9 Gastro-esophageal reflux disease without esophagitis; Y81.2 Prosthetic and other implants, materials and accessory general- and plastic-surgery devices associated with adverse incidents; Z79.4 Long term (current) use of insulin; Z79.82 Long term (current) use of aspirin; Z79.899 Other long term (current) drug therapy; Z99.2 Dependence on renal dialysis
CPT/HCPCS: 71010; 80048; 80053; 82550; 82553; 82565; 83036; 83880; 84132; 84484; 84520; 85025; 85027; 93005

== ENCOUNTER 2018-02-15 01:50 | Emergency (ER) | payer OTHER ==
[2018-02-15 02:23] VITALS: PULSE 89; RESP 18
--- NOTE | 2018-02-15 02:37 | ED ---
General Adult HPI - General Source: EMS Limitations: no limitations <Carol Powell - Last Filed: 02/15/18 04:45> <Kimberly Randall - Last Filed: 02/15/18 06:08> - General Chief complaint: Recheck/Abnormal Lab/Rx Stated complaint: BACK PAIN Time Seen by Provider: 02/15/18 01:53 - History of Present Illness Initial comments: 42-year-old male patient with complex past medical history which includes diabetes mellitus, renal failure with hemodialysis, and recent left above-the- knee amputation presents to the emergency department today from [facility] for evaluation after nursing staff found him to be unresponsive and showed evidence of bleeding from the left leg stump. Patient is currently at [facility] for rehabilitation after having the amputation on 01/10/2018. Patient states that he doesn't know why he is here. Patient states that he was sleeping and does not think he was unresponsive. States that he did have some drainage on his dressing, they did change it, and wasn't showing any further evidence of drainage, so he is unsure why they sent him in. Patient denies any current physical concerns. States that he does have an increase in his usual low back pain but otherwise feels well. Patient states he did miss his last dialysis appointment because the chairs are uncomfortable and they don't treat him well when he goes to dialysis. He denies any fever, chills, chest pain, shortness of breath, abdominal pain, nausea, or vomiting. Denies any significant pain to the leg. Denies any dizziness, numbness, or tingling. States he does feel mildly weak but this is not unusual for him. Patient denies any recent rash, diarrhea, constipation, headache, visual changes, or any other complaints. (Carol Powell) - Related Data Home Medications Medication Instructions Recorded Confirmed ALPRAZolam [Xanax] 0.25 mg PO BID 07/28/16 07/28/16 Aspirin [Adult Low Dose Aspirin EC] 81 mg PO DAILY 07/28/16 07/28/16 Atorvastatin [Lipitor] 40 mg PO HS 07/28/16 07/28/16 Calcium Acetate [PhosLo] 667 mg PO TID 07/28/16 07/28/16 Carvedilol [Coreg] 6.25 mg PO BID 07/28/16 07/28/16 Cetirizine HCl [Zyrtec] 10 mg PO Q48H 07/28/16 07/28/16 Citracal Tablet 0.5 mcg PO WE 07/28/16 07/28/16 Divalproex [Depakote] 250 mg PO BID 07/28/16 07/28/16 Famotidine 20 mg PO BID 07/28/16 07/28/16 Insulin Detemir [Levemir] 20 unit SQ BID 07/28/16 07/28/16 Insulin Lispro [humaLOG] 1 - 5 units SQ AC-TID PRN 07/28/16 07/28/16 Magnesium Oxide 400 mg PO Q48H 07/28/16 07/28/16 Megestrol Acetate 40 mg PO HS 07/28/16 07/28/16 Omeprazole [PriLOSEC] 20 mg PO AC-BRKFST 07/28/16 07/28/16 Sertraline [Zoloft] 50 mg PO HS 07/28/16 07/28/16 Previous Rx's Medication Instructions Recorded HYDROcodone/APAP 7.5-325MG [Hartman 1 each PO Q4H PRN #60 tab 07/29/16 7.5-325] amLODIPine [Norvasc] 10 mg PO DAILY #30 tab 07/31/16 Doxycycline [Vibramycin] 100 mg PO BID #20 cap 02/15/18 Hydrocodone/Acetaminophen [Hartman 1 tab PO BID #10 tab 02/15/18 10-325] Allergies Allergy/AdvReac Type Severity Reaction Status Date / Time pistachio nut Allergy throat Verified 02/15/18 02:23 swelling Review of Systems ROS Other: All systems not noted in ROS Statement are negative. <Carol Powell M - Last Filed: 02/15/18 04:45> ROS Other: All systems not noted in ROS Statement are negative. <Kimberly Randall - Last Filed: 02/15/18 06:08> ROS Statement: Those systems with pertinent positive or pertinent negative responses have been documented in the HPI. Past Medical History Past Medical History: Diabetes Mellitus, Dialysis, Eye Disorder, GERD/Reflux, Hyperlipidemia, Hypertension, Renal Disease Additional Past Medical History / Comment(s): migraines, stage 5 kidney disease , peritoneal dialysis daily (overnight and 2x during the day), diabetic retinopathy History of Any Multi-Drug Resistant Organisms: None Reported Additional Past Surgical History / Comment(s): periotoneal dialysis catheter insertion 03/2014, left eye cataract, mult laser retinal surgeries both eyes , left AKA Past Anesthesia/Blood Transfusion Reactions: No Reported Reaction Past Psychological History: No Psychological Hx Reported Smoking Status: Never smoker Past Alcohol Use History: None Reported, Occasional Past Drug Use History: None Reported - Past Family History Mother Family Medical History: No Reported History <Carol Powell M - Last Filed: 02/15/18 04:45> General Exam Limitations: no limitations General appearance: alert, in no apparent distress, other (This is a well- developed, well-nourished adult male patient in no acute distress. Vital signs upon presentation are temperature 98.2F, pulse 89, respirations 18, blood pressure 96/68, pulse ox 98% on room air.) Eye exam: Present: normal appearance, PERRL, EOMI. Absent: scleral icterus, conjunctival injection, periorbital swelling ENT exam: Present: normal exam, normal oropharynx, mucous membranes moist Respiratory exam: Present: normal lung sounds bilaterally. Absent: respiratory distress, wheezes, rales, rhonchi, stridor Cardiovascular Exam: Present: regular rate, normal rhythm, normal heart sounds. Absent: systolic murmur, diastolic murmur, rubs, gallop, clicks GI/Abdominal exam: Present: soft, normal bowel sounds. Absent: distended, tenderness, guarding, rebound, rigid Neurological exam: Present: alert, oriented X3, CN II-XII intact Psychiatric exam: Present: normal affect, agitated Skin exam: Present: warm, dry, intact, pallor. Absent: normal color, rash <Carol Powell M - Last Filed: 02/15/18 04:45> Vital Signs 02/15/18 02:18 Temperature 98.2 F Pulse Rate 89 Respiratory 18 Rate Blood Pressure 96/68 O2 Sat by Pulse 98 Oximetry EKG Findings - EKG Comments: EKG Findings:: EKG obtained at 02 43 shows normal sinus rhythm with a prolonged QT interval, ventricular rate 90, NH interval 164, QRS duration 74, QT 406, QTc 496. Patient does have T-wave inversion in V2-4. <Carol Powell - Last Filed: 02/15/18 04:45> Medical Decision Making - Lab Data Result diagrams: 02/15/18 02:32 02/15/18 02:32 <Carol Powell - Last Filed: 02/15/18 04:45> - Lab Data Result diagrams: 02/15/18 02:32 02/15/18 02:32 <Kimberly Randall - Last Filed: 02/15/18 06:08> - Medical Decision Making 42-year-old male patient presents to the emergency department today for evaluation of increased drainage from the left [id number] amputation surgical wound. Staff at [facility] reported that patient was unresponsive prior to calling EMS and they sent him here. Patient states that he was sleeping during this episode. Patient states he is currently feeling fine. Physical examination did reveal purulent foul smelling drainage from the left lateral aspect of the stump incision. This was cultured. Patient's labs reviewed and did show white blood cell count of 13.1, creatinine 4.5 hemoglobin 10.1. Patient does have renal failure and receives hemodialysis. Given the findings of surgical site infection elevated white blood cell count at 13.1 and is recommended patient be transferred to [facility] where he had his initial surgery. Patient refuses to be transferred and states he would rather be discharged back to the extended care facility. Patient will be started on doxycycline pending culture results, patient will also be given Hartman 10/325 to be taken one hour prior to dressing changes as it seems that pain is the reason the dressing has not been being changed. I did discuss risks of being discharged back to the facility including worsening of his infection and sepsis , patient verbalizes understanding of the risks and would still like to be discharged. Return parameters were discussed in detail. Patient's father is present both patient and father verbalizes understanding. (Carol Powell) I was available for consultation in the emergency department. The history and physical exam were done by the midlevel provider. I was consulted for this patient's care. I reviewed the case with the midlevel provider and based on their presentation of the patient, I agree with the assessment, medical decision making and plan of care as documented. (Kimberly Randall) - Lab Data Lab Results 02/15/18 02/15/18 02/15/18 Range/Units 02:32 02:32 02:32 WBC 13.1 H (3.8-10.6) k/uL RBC 3.11 L (4.30-5.90) m/uL Hgb 10.1 L (13.0-17.5) gm/dL Hct 32.4 L (39.0-53.0) % MCV 104.2 H (80.0-100.0) fL MCH 32.5 (25.0-35.0) pg MCHC 31.2 (31.0-37.0) g/dL RDW 22.7 H (11.5-15.5) % Plt Count 287 (150-450) k/uL Neutrophils % (Manual) 78 % Band Neutrophils % 1 % Lymphocytes % (Manual) 14 % Monocytes % (Manual) 5 % Eosinophils % (Manual) 1 % Basophils % (Manual) 1 % Neutrophils # (Manual) 10.30 H (1.3-7.7) k/uL Lymphocytes # (Manual) 1.83 (1.0-4.8) k/uL Monocytes # (Manual) 0.66 (0-1.0) k/uL Eosinophils # (Manual) 0.13 (0-0.7) k/uL Basophils # (Manual) 0.13 (0-0.2) k/uL Nucleated RBCs 0 (0-0) /100 WBC Manual Slide Review Performed Polychromasia Present Hypochromasia Moderate Anisocytosis Moderate Macrocytosis Marked PT (9.0-12.0) sec INR (<1.2) APTT (22.0-30.0) sec Sodium 134 L (137-145) mmol/L Potassium 4.7 (3.5-5.1) mmol/L Chloride 104 (98-107) mmol/L Carbon Dioxide 23 (22-30) mmol/L Anion Gap 7 mmol/L BUN 9 (9-20) mg/dL Creatinine 4.50 H (0.66-1.25) mg/dL Est GFR (CKD-EPI)AfAm 17 (>60 ml/min/1.73 sqM) Est GFR (CKD-EPI)NonAf 15 (>60 ml/min/1.73 sqM) Glucose 86 (74-99) mg/dL Calcium 8.5 (8.4-10.2) mg/dL Total Bilirubin 0.9 (0.2-1.3) mg/dL AST 40 (17-59) U/L ALT 54 (21-72) U/L Alkaline Phosphatase 350 H (38-126) U/L Total Creatine Kinase 25 L (55-170) U/L CK-MB (CK-2) <0.2 (0.0-2.4) ng/mL CK-MB (CK-2) Rel Index Troponin I <0.012 (0.000-0.034) ng/mL Total Protein 4.8 L (6.3-8.2) g/dL Albumin 1.8 L (3.5-5.0) g/dL 02/15/18 Range/Units 02:32 WBC (3.8-10.6) k/uL RBC (4.30-5.90) m/uL Hgb (13.0-17.5) gm/dL Hct (39.0-53.0) % MCV (80.0-100.0) fL MCH (25.0-35.0) pg MCHC (31.0-37.0) g/dL RDW (11.5-15.5) % Plt Count (150-450) k/uL Neutrophils % (Manual) % Band Neutrophils % % Lymphocytes % (Manual) % Monocytes % (Manual) % Eosinophils % (Manual) % Basophils % (Manual) % Neutrophils # (Manual) (1.3-7.7) k/uL Lymphocytes # (Manual) (1.0-4.8) k/uL Monocytes # (Manual) (0-1.0) k/uL Eosinophils # (Manual) (0-0.7) k/uL Basophils # (Manual) (0-0.2) k/uL Nucleated RBCs (0-0) /100 WBC Manual Slide Review Polychromasia Hypochromasia Anisocytosis Macrocytosis PT 15.5 H (9.0-12.0) sec INR 1.7 H (<1.2) APTT 24.3 (22.0-30.0) sec Sodium (137-145) mmol/L Potassium (3.5-5.1) mmol/L Chloride (98-107) mmol/L Carbon Dioxide (22-30) mmol/L Anion Gap mmol/L BUN (9-20) mg/dL Creatinine (0.66-1.25) mg/dL Est GFR (CKD-EPI)AfAm (>60 ml/min/1.73 sqM) Est GFR (CKD-EPI)NonAf (>60 ml/min/1.73 sqM) Glucose (74-99) mg/dL Calcium (8.4-10.2) mg/dL Total Bilirubin (0.2-1.3) mg/dL AST (17-59) U/L ALT (21-72) U/L Alkaline Phosphatase (38-126) U/L Total Creatine Kinase (55-170) U/L CK-MB (CK-2) (0.0-2.4) ng/mL CK-MB (CK-2) Rel Index Troponin I (0.000-0.034) ng/mL Total Protein (6.3-8.2) g/dL Albumin (3.5-5.0) g/dL Disposition Is patient prescribed a controlled substance at d/c from ED?: Yes When asked, does pt state using other controlled substances?: Yes If prescribed controlled substance>3 days was MAPS reviewed?: Prescribed <3 Days If opioid is for acute pain is fill amount 7 days or less?: Yes If Rx opioid, was Start Talking consent form obtained?: Yes Time of Disposition: 04:41 <Carol Powell - Last Filed: 02/15/18 04:45> <Kimberly Randall - Last Filed: 02/15/18 06:08> Clinical Impression: Surgical site infection Disposition: HOME SELF-CARE Condition: Good Instructions: Surgical Site Infections (ED) Additional Instructions: Take stronger norco one hour prior to dressing changes. Change dressing twice daily. Complete antibiotic in full. Monitor for development of fever. Follow up with primary care physician for recheck as soon as possible. Return here immediately for any new, worsening, or concerning symptoms. Prescriptions: Doxycycline [Vibramycin] 100 mg PO BID #20 cap Hydrocodone/Acetaminophen [Hartman 10-325] 1 tab PO BID #10 tab Referrals: Marco Barlow MD [Primary Care Provider] - 1-2 days
[2018-02-15 02:44] LABS: Anisocytosis Moderate; HCT 32.4 % (39.0-53.0); HGB 10.1 gm/dL (13.0-17.5); Hypochromasia Moderate; MCH 32.5 pg (25.0-35.0); MCHC 31.2 g/dL (31.0-37.0); MCV 104.2 fL (80.0-100.0); Macrocytosis Marked; Mean Platelet Volume 7.8; Platelet Count 287 k/uL (150-450); RBC 3.11 m/uL (4.30-5.90); RDW 22.7 % (11.5-15.5); WBC 13.1 k/uL (3.8-10.6)
[2018-02-15 02:52] LABS: INR 1.7 (<1.2); Partial Thromboplastin Time 24.3 sec (22.0-30.0); Prothrombin Time 15.5 sec (9.0-12.0)
[2018-02-15 02:53] LABS: Creatine Kinase 25 U/L (55-170)
[2018-02-15 02:55] LABS: Albumin 1.8 g/dL (3.5-5.0); Calcium 8.5 mg/dL (8.4-10.2); Potassium 4.7 mmol/L (3.5-5.1); Total Bilirubin 0.9 mg/dL (0.2-1.3); Total Protein 4.8 g/dL (6.3-8.2)
[2018-02-15 03:06] LABS: Creatine Kinase MB <0.2 ng/mL (0.0-2.4); Troponin I <0.012 ng/mL (0.000-0.034)
[2018-02-15 03:18] LABS: Band Neutrophils % 1 %; Basophils # (M) 0.13 k/uL (0-0.2); Eosinophils # (M) 0.13 k/uL (0-0.7); Lymphocytes # (M) 1.83 k/uL (1.0-4.8); Monocytes # (M) 0.66 k/uL (0-1.0); Neutrophils % (M) 78 %; Nucleated Red Blood Cells 0 /100 WBC (0-0); Polychromasia Present; Total Cells Counted 100
[2018-02-15] MEDS ORDERED: MORPHINE SULFATE 4 MG/ML SYRINGE IVP STA (03:56)
[2018-02-15 06:28] VITALS: BP 139/79; TEMP 98
== END 2018-02-15 06:28 | disposition home or self-care (01) ==
LOC: EC 01:50
DX: T81.41XA Infection following a procedure, superficial incisional surgical site, initial encounter (principal); E11.22 Type 2 diabetes mellitus with diabetic chronic kidney disease; I12.0 Hypertensive chronic kidney disease with stage 5 chronic kidney disease or end stage renal disease; N18.5 Chronic kidney disease, stage 5; E11.319 Type 2 diabetes mellitus with unspecified diabetic retinopathy without macular edema; K21.9 Gastro-esophageal reflux disease without esophagitis; E78.5 Hyperlipidemia, unspecified; Z79.82 Long term (current) use of aspirin; Z79.4 Long term (current) use of insulin; Z79.02 Long term (current) use of antithrombotics/antiplatelets; Z79.899 Other long term (current) drug therapy; Z91.018 Allergy to other foods; Z99.2 Dependence on renal dialysis; Z89.612 Acquired absence of left leg above knee; Z98.890 Other specified postprocedural states
CPT/HCPCS: 36415; 93005; 80053; 82550; 82553; 84484; 85025; 85610; 85730; 87070; 87205; 99283; 96374; J2270; 87077; 87186

== ENCOUNTER 2018-03-16 11:31 | Inpatient (IN) | payer OTHER ==
[2018-03-16] MEDS ORDERED: SODIUM CHLORIDE 0.9% 500 ML 500 ML IV STA (11:50)
[2018-03-16] MEDS ORDERED: SODIUM CHLORIDE 0.9% 1,000 ML IV STA (11:50)
--- NOTE | 2018-03-16 12:58 | XR ---
EXAMINATION TYPE: XR chest 2V DATE OF EXAM: 03/16/2018 COMPARISON: 07/31/2016 HISTORY: Chest pain TECHNIQUE: Frontal and lateral views of the chest are obtained. FINDINGS: Large bore central venous line demonstrates its distal tip within the right atrium. No evidence for p neumothorax. Small basilar pleural effusions and mild atelectasis. There is no focal air space opacity. No evidence for pneumothorax. No pleural effusion. The cardiac silhouette size is within normal limits. The osseous structures are grossly intact. IMPRESSION: 1. Small basilar pleural effusions and mild atelectasis.
[2018-03-16 13:11] LABS: Anisocytosis Moderate; HCT 20.9 % (39.0-53.0); MCH 35.2 pg (25.0-35.0); MCHC 34.4 g/dL (31.0-37.0); MCV 102.3 fL (80.0-100.0); Macrocytosis Moderate; Mean Platelet Volume 9.2; RBC 2.04 m/uL (4.30-5.90); RDW 20.1 % (11.5-15.5)
[2018-03-16 13:18] LABS: Albumin 1.6 g/dL (3.5-5.0); Calcium 7.5 mg/dL (8.4-10.2); HGB 7.2 gm/dL (13.0-17.5); Magnesium 1.8 mg/dL (1.6-2.3); Potassium 3.1 mmol/L (3.5-5.1); Total Bilirubin 1.9 mg/dL (0.2-1.3); Total Protein 4.5 g/dL (6.3-8.2)
[2018-03-16 13:27] LABS: Creatine Kinase 230 U/L (55-170)
[2018-03-16] MEDS: DEXTROSE 50%-WATER 50 ML SYRINGE IVP STA ×2 (13:33→20:30)
[2018-03-16 13:37] LABS: Creatine Kinase MB <0.2 ng/mL (0.0-2.4); Troponin I 0.014 ng/mL (0.000-0.034)
[2018-03-16 14:30] LABS: Myelocytes % 1 %; Neutrophils % (M) 80 %; Nucleated Red Blood Cells 8 /100 WBC (0-0); Total Cells Counted 200
[2018-03-16 14:31] LABS: Lymphocytes # (M) 0.92 k/uL (1.0-4.8); Monocytes # (M) 0.31 k/uL (0-1.0); Myelocytes # (M) 0.06 k/uL (0); Neutrophils # (M) 4.88 k/uL (1.3-7.7); WBC 6.1 k/uL (3.8-10.6)
[2018-03-16 14:47] LABS: Glucose,Whole Blood 76 mg/dL (75-99)
--- NOTE | 2018-03-16 18:26 | ED ---
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 He was in dialysis today after 2 hours started developing lower than his usual blood pressure. Normally his blood pressure runs in the 80s systolic he was down in the 70s. He was sent here for evaluation. Patient denied any pain though somewhat lethargic. He was found later to have low blood sugar. He does have history diabetes but has not been on insulin since his amputation. No reports of fevers chills sweats or other symptoms he does have a wound on his left stump per his father who came in later to get more information. No nausea vomiting cough or other symptoms reported. - Related Data Home Medications Medication Instructions Recorded Confirmed Atorvastatin [Lipitor] 40 mg PO HS 07/28/16 03/16/18 Divalproex [Depakote] 250 mg PO BID@0600,1800 07/28/16 03/16/18 Famotidine 20 mg PO DAILY@0600 07/28/16 03/16/18 Omeprazole [PriLOSEC] 20 mg PO AC-BRKFST 07/28/16 03/16/18 Sertraline [Zoloft] 50 mg PO HS 07/28/16 03/16/18 Carvedilol [Coreg] 3.125 mg PO BID 03/16/18 03/16/18 Allergies Allergy/AdvReac Type Severity Reaction Status Date / Time pistachio nut Allergy throat Verified 03/16/18 12:30 swelling Review of Systems ROS Statement: Those systems with pertinent positive or pertinent negative responses have been documented in the HPI. ROS Other: All systems not noted in ROS Statement are negative. Past Medical History Past Medical History: Diabetes Mellitus, Dialysis, Eye Disorder, GERD/Reflux, Hyperlipidemia, Hypertension, Renal Disease Additional Past Medical History / Comment(s): migraines, stage 5 kidney disease , peritoneal dialysis daily (overnight and 2x during the day), diabetic retinopathy History of Any Multi-Drug Resistant Organisms: VRE Date of last positivie culture/infection: 02/15/18 MDRO Source:: knee Additional Past Surgical History / Comment(s): periotoneal dialysis catheter insertion 03/2014, left eye cataract, mult laser retinal surgeries both eyes , left AKA Past Anesthesia/Blood Transfusion Reactions: No Reported Reaction Past Psychological History: No Psychological Hx Reported Smoking Status: Never smoker Past Alcohol Use History: None Reported, Occasional Past Drug Use History: None Reported - Past Family History Mother Family Medical History: No Reported History General Exam - General Exam Comments Initial Comments: This a well-developed well-nourished awake alert but lethargic male Limitations: physical limitation General appearance: alert, lethargic Head exam: Present: atraumatic, normocephalic, normal inspection Eye exam: Present: normal appearance, PERRL, EOMI. Absent: scleral icterus, conjunctival injection, periorbital swelling ENT exam: Present: mucous membranes dry Neck exam: Present: normal inspection, full ROM. Absent: tenderness, meningismus, lymphadenopathy Respiratory exam: Present: normal lung sounds bilaterally. Absent: respiratory distress, wheezes, rales, rhonchi, stridor Cardiovascular Exam: Present: regular rate, normal rhythm, normal heart sounds. Absent: systolic murmur, diastolic murmur, rubs, gallop, clicks GI/Abdominal exam: Present: soft, normal bowel sounds. Absent: distended, tenderness, guarding, rebound, rigid, bruit, pulsatile mass, hernia, other Rectal exam: Present: deferred Extremities exam: Present: full ROM, normal capillary refill, other (Patient does have an above the patient left there is a dressing in place are is evidence of a wound that is healing on the posterior lateral aspect of the stump no evidence of increased localized temperature compared to the opposite extremity. No redness.). Absent: tenderness, pedal edema, joint swelling, calf tenderness Back exam: Present: normal inspection Neurological exam: Present: alert, oriented X3, CN II-XII intact Psychiatric exam: Present: normal affect, normal mood Skin exam: Present: warm, dry, intact, normal color. Absent: rash Course Vital Signs 03/16/18 03/16/18 03/16/18 11:41 12:24 12:40 Temperature 98.1 F Pulse Rate 78 81 80 Respiratory 18 5 L 13 Rate Blood Pressure 90/50 74/69 O2 Sat by Pulse 98 98 99 Oximetry 03/16/18 03/16/18 03/16/18 13:00 13:20 13:40 Temperature Pulse Rate 80 80 77 Respiratory 8 L 11 L 15 Rate Blood Pressure 67/48 72/48 79/46 O2 Sat by Pulse 99 99 94 L Oximetry 03/16/18 03/16/18 03/16/18 14:00 14:20 14:40 Temperature Pulse Rate 81 80 80 Respiratory 7 L 11 L 9 L Rate Blood Pressure 80/49 81/44 85/43 O2 Sat by Pulse 92 L 93 L 97 Oximetry 03/16/18 03/16/18 03/16/18 15:00 15:20 15:40 Temperature Pulse Rate 80 81 81 Respiratory 16 12 14 Rate Blood Pressure 75/47 62/44 77/48 O2 Sat by Pulse 95 94 L 90 L Oximetry 03/16/18 03/16/18 03/16/18 16:00 17:00 18:00 Temperature Pulse Rate 81 81 80 Respiratory 11 L 12 14 Rate Blood Pressure 97/44 72/46 81/44 O2 Sat by Pulse 88 L 97 98 Oximetry - Reevaluation(s) Reevaluation #1: 03/16/18 18:26 Patient did respond to some IV fluids his pressure did improve to what is the baseline. This confirmed both by the patient and the patient's dad. Reevaluation #2: 03/16/18 18:27 I did require an amp of D50. EKG Findings - EKG Results: EKG: interpreted by ERMD (Sinus rhythm rate of 80. Interval 150 QRS duration 76 daily since QTC 466/[address] configuration prolonged QT) Medical Decision Making - Medical Decision Making I did a long discussion with the patient and his dad. Patient be admitted he does have a 7.2 hemoglobin which is low for him there is no bleeding however. He'll be receiving one unit of blood. I did discuss this with Dr. Villalta. Patient will be admitted with consultation by nephrology. - Lab Data Result diagrams: 03/16/18 12:16 03/16/18 12:16 Lab Results 03/16/18 03/16/18 03/16/18 Range/Units 12:16 12:16 12:16 WBC 6.1 (3.8-10.6) k/uL RBC 2.04 L (4.30-5.90) m/uL Hgb 7.2 L D (13.0-17.5) gm/dL Hct 20.9 L (39.0-53.0) % MCV 102.3 H (80.0-100.0) fL MCH 35.2 H (25.0-35.0) pg MCHC 34.4 (31.0-37.0) g/dL RDW 20.1 H (11.5-15.5) % Plt Count 85 L D (150-450) k/uL Neutrophils % (Manual) 80 % Lymphocytes % (Manual) 15 % Monocytes % (Manual) 5 % Myelocytes % 1 % Neutrophils # (Manual) 4.88 (1.3-7.7) k/uL Lymphocytes # (Manual) 0.92 L (1.0-4.8) k/uL Monocytes # (Manual) 0.31 (0-1.0) k/uL Myelocytes # (Manual) 0.06 H (0) k/uL Nucleated RBCs 8 H (0-0) /100 WBC Anisocytosis Moderate Macrocytosis Moderate Sodium (137-145) mmol/L Potassium (3.5-5.1) mmol/L Chloride (98-107) mmol/L Carbon Dioxide (22-30) mmol/L Anion Gap mmol/L BUN (9-20) mg/dL Creatinine (0.66-1.25) mg/dL Est GFR (CKD-EPI)AfAm (>60 ml/min/1.73 sqM) Est GFR (CKD-EPI)NonAf (>60 ml/min/1.73 sqM) Glucose (74-99) mg/dL POC Glucose (mg/dL) (75-99) mg/dL POC Glu [employer] [facility] [employer] ID Calcium (8.4-10.2) mg/dL Magnesium (1.6-2.3) mg/dL Total Bilirubin (0.2-1.3) mg/dL AST (17-59) U/L ALT (21-72) U/L Alkaline Phosphatase (38-126) U/L Ammonia 9 (<30) umol/L Total Creatine Kinase 230 H (55-170) U/L CK-MB (CK-2) <0.2 (0.0-2.4) ng/mL CK-MB (CK-2) Rel Index Troponin I 0.014 (0.000-0.034) ng/mL Total Protein (6.3-8.2) g/dL Albumin (3.5-5.0) g/dL Lipase (23-300) U/L Blood Type Blood Type Recheck Antibody Screen Spec Expiration Date 03/16/18 03/16/18 03/16/18 Range/Units 12:16 12:16 14:44 WBC (3.8-10.6) k/uL RBC (4.30-5.90) m/uL Hgb (13.0-17.5) gm/dL Hct (39.0-53.0) % MCV (80.0-100.0) fL MCH (25.0-35.0) pg MCHC (31.0-37.0) g/dL RDW (11.5-15.5) % Plt Count (150-450) k/uL Neutrophils % (Manual) % Lymphocytes % (Manual) % Monocytes % (Manual) % Myelocytes % % Neutrophils # (Manual) (1.3-7.7) k/uL Lymphocytes # (Manual) (1.0-4.8) k/uL Monocytes # (Manual) (0-1.0) k/uL Myelocytes # (Manual) (0) k/uL Nucleated RBCs (0-0) /100 WBC Anisocytosis Macrocytosis Sodium 133 L (137-145) mmol/L Potassium 3.1 L (3.5-5.1) mmol/L Chloride 96 L (98-107) mmol/L Carbon Dioxide 29 (22-30) mmol/L Anion Gap 8 mmol/L BUN 4 L (9-20) mg/dL Creatinine 2.03 H (0.66-1.25) mg/dL Est GFR (CKD-EPI)AfAm 46 (>60 ml/min/1.73 sqM) Est GFR (CKD-EPI)NonAf 39 (>60 ml/min/1.73 sqM) Glucose 36 L* (74-99) mg/dL POC Glucose (mg/dL) 76 (75-99) mg/dL POC Glu [employer] [facility] [employer] ID Ana Laura Sánchez Calcium 7.5 L (8.4-10.2) mg/dL Magnesium 1.8 (1.6-2.3) mg/dL Total Bilirubin 1.9 H (0.2-1.3) mg/dL AST 1046 H (17-59) U/L ALT 231 H (21-72) U/L Alkaline Phosphatase 415 H (38-126) U/L Ammonia (<30) umol/L Total Creatine Kinase (55-170) U/L CK-MB (CK-2) (0.0-2.4) ng/mL CK-MB (CK-2) Rel Index Troponin I (0.000-0.034) ng/mL Total Protein 4.5 L (6.3-8.2) g/dL Albumin 1.6 L (3.5-5.0) g/dL Lipase 29 (23-300) U/L Blood Type A Positive Blood Type Recheck CABO Indicated Antibody Screen NEGATIVE Spec Expiration Date 03/19/2018 - 4433 - Radiology Data Radiology results: report reviewed (The patient imaging revealed no acute findings.), image reviewed Disposition Clinical Impression: Chronic renal failure, Hypotensive episode, Anemia, Hypoglycemia Disposition: ADMITTED IP TO THIS [facility] Condition: Stable Referrals: None,Stated [Primary Care Provider] - 1-2 days
[2018-03-16] MEDS ORDERED: NALOXONE 0.4 MG/ML 1 ML VIAL IV PRN (18:31)
[2018-03-16] MEDS ORDERED: ALPRAZolam 0.25 MG TAB PO PRN (18:42)
[2018-03-16] MEDS ORDERED: TEMAZEPAM 15 MG CAP PO PRN (18:42)
[2018-03-16] MEDS ORDERED: VANCOMYCIN IV PER PHARMACY 1 EACH MISC MISCELLANE PRN ×2 (19:44→20:09)
[2018-03-16] MEDS ORDERED: VANCOMYCIN 1,250 MG in SODIUM CHLORIDE 0.9% 250 ML IVPB ONE (20:00)
[2018-03-16] MEDS ORDERED: IOPAMIDOL-300 CONTRAST 30 ML VIAL (ORAL USE) PO PRN (20:15)
[2018-03-16 20:21] LABS: Glucose,Whole Blood 71 mg/dL (75-99)
[2018-03-16] MEDS ORDERED: DEXTROSE 50%-WATER 50 ML SYRINGE IVP STA (20:21)
--- NOTE | 2018-03-16 21:06 | CT ---
EXAMINATION: CT brain wo con DATE AND TIME: 03/16/2018 8:21 PM CLINICAL INDICATION: Fall vitals dropped during dialysis. TECHNIQUE: Standard departmental protocol. COMPARISON: None. FINDINGS: There is no skull fracture or intracranial hemorrhage. There is no intracranial mass or mass effect. No definite new intra-axial or extra-axial attenuation defect. The paranasal sinuses are clear, as are the left middle ear cavity and the left mastoid sinus air elisa ls. However, there is opacification of the right mastoid sinus air cells and right middle ear cavity, which can correlate with a clinical diagnosis of right mastoiditis and/or otitis media. The orbits are unremarkable. IMPRESSION: 1) NO ACUTE CRANIAL/INTRACRANIAL PROCESS. 2) RIGHT MASTOID SINUS AND MIDDLE EAR CAVITY OPACIFICATION.
[2018-03-16 21:16] LABS: Glucose,Whole Blood 72 mg/dL (75-99)
--- NOTE | 2018-03-16 21:20 | HP ---
HISTORY AND PHYSICAL . CHIEF COMPLAINT: Weakness and hypertension. HISTORY OF PRESENT ILLNESS: This 42-year-old gentleman with a past medical history of multiple medical problems including end stage renal disease on hemodialysis, history of diabetes Type 2, history of GERD, hypertension, hyperlipidemia, history of migraine, history of left above-knee amputation being followed by Dr. Barlow in the outpatient setting received hemodialysis at [facility]. The patient apparently in [facility] at this time. The patient has some draining area from the left knee. The patient apparently had falls also according to the father. In the dialysis, the blood pressure was found to be low in the 70s. Blood pressure was said to be 80s according to the family. Because of increasing low blood pressure and as well as some drowsiness, the patient taken to [facility] and was admitted for further evaluation and treatment. There is no history of fever, rigors. No history of any headache, loss of consciousness, seizures at this time. PAST MEDICAL HISTORY: History of hemodialysis, history of GERD, hypertension, hyperlipidemia. MEDICATIONS: Prior to admission include: 1. Depakote 250 mg p.o. b.i.d. 2. Prilosec 20 mg daily. 3. Lipitor 40 mg. 4. Zoloft 50 mg daily q.h.s. 5. Pepcid 20 . 6. Famotidine 30 mg p.o. daily. 7. Coreg 3.125 mg b.i.d. ALLERGIES: PISTACHIO NUT. FAMILY HISTORY: No history of heart disease or strokes in the family. SOCIAL HISTORY: No history of smoking. No history of alcohol intake. REVIEW OF SYSTEMS: ENT: Diminished vision. Diminished hearing. Cardiovascular: No angina or palpitations. Respiration: As mentioned earlier. GI: As mentioned earlier. as mentioned earlier. Nervous system: As mentioned earlier. Allergy/Immunology: No asthma or hayfever. MUSCULOSKELETAL: As mentioned earlier. HEMATOLOGY/ONCOLOGY: No history of anemia. Endocrine: As mentioned earlier. CONSTITUTIONAL: As mentioned earlier. Dermatology: Negative. Rheumatology: Negative. Psychiatry: As mentioned earlier. PHYSICAL EXAMINATION: Alert oriented x2. Pulse 81. Blood pressure 72/47, respiration 14, temp normal , pulse ox 98% on room air. HEENT: Conjunctivae pale. Oral mucosa moist. NECK: Obese. No jugular venous distention. No carotid bruit. No lymph node enlargement. CARDIOVASCULAR: S1-S2 muffled. No S3, no S4. Ejection systolic murmur present. RESPIRATORY: Breath sounds diminished in the bases. A few scattered rhonchi and crackles. ABDOMEN: Soft, mild diffuse distention, no mass palpable. LEGS: Status post left above-knee amputation. NERVOUS SYSTEM: Higher functions as mentioned earlier. Moves all four extremities. Mild diffuse weakness. Lymphatics: No lymph nodes palpable in the neck, axillae or groin. SKIN: No ulcer, tyree or bleeding. Left leg at this time some draining abscess also present. LABS: WBC 6.2, hemoglobin 7.2, sodium 130, potassium 3.1 and AST is 1046, ALT is 231, albumin is 1.6, albumin is 2.4. ASSESSMENT: 1. Hypotension for evaluation, rule out septic shock. 2. Left leg cellulitis. 3. Chronic end stage renal disease end stage IV on hemodialysis. 4. Anemia macrocytic secondary to renal failure. 5. Hyponatremia. 6. Hypokalemia. 7. Hyperglycemia. 8. Increased AST/ALT possibly hepatitis. 9. Gastroesophageal reflux disease. 10.Hypertension. 11.Hyperlipidemia. 12.History of migraines. 13.Diabetic retinopathy. RECOMMENDATIONS AND DISCUSSION: In this 42-year-old gentleman who presented with multiple complex medical issues , we will monitor the patient closely, continue the current medications, management and symptomatic treatment. I would recommend nephrology evaluation and also I would recommend Levophed drip cautiously to mean arterial pressure 65. Consult Dr. Marsh for ICU management. Otherwise, I would recommend infectious disease evaluation. Broad- spectrum IV antibiotics. Cultures. Resume the home medications. I would also recommend a CT scan of the head and also the CT scan of the abdomen and pelvis also without any IV contrast. Prognosis guarded. Further recommendations to follow. MMODL / IJN: [id number] / MTDBolivar
[2018-03-16 21:38] LABS: Glucose,Whole Blood 130 mg/dL (75-99)
[2018-03-16] MEDS ORDERED: MIDODRINE 5 MG TAB PO STA (21:58)
[2018-03-16] MEDS: PIPERACILLIN-TAZOBACTAM 3.375 GM in SODIUM CHLORIDE 0.9% 100 ML IVPB SCH (22:05)
--- NOTE | 2018-03-16 22:14 | CT ---
EXAMINATION TYPE: CT abdomen pelvis wo con DATE OF EXAM: 03/16/2018 COMPARISON: None HISTORY: Abdominal pain CT DLP: 583.3 mGycm Automated exposure control for dose reduction was used. TECHNIQUE: Helical acquisition of images was performed from the lung bases through the pelvis. FINDINGS: There are moderate bilateral pleural effusions. There is infiltrate and atelectasis at the lung bases . Heart is enlarged. Gallbladder is dilated and measures 4.4 cm in diameter. There is no focal liver defect. Spleen appear s normal. Stomach appears normal. There is no evidence of a pancreatic mass. There is ascites fluid t hroughout the abdomen. There is mild thickening of the urinary bladder wall. There is no inguinal her ashlie. I see no evidence of a bowel obstruction. There is no evidence of free air. I see no mesenteric edema. There is extensive vascular calcification noted. There is bilateral renal calcification that i s probably all vascular. There is no retroperitoneal adenopathy. I see no bony destructive process. T here is no compression fracture in the lumbar spine. The bony pelvis appears intact. There is subcuta neous edema around the abdomen that could relate to anasarca. IMPRESSION: CARDIOMEGALY WITH PLEURAL EFFUSIONS AND BASILAR PULMONARY CONSOLIDATION AND ATELECTASIS. THIS IS CONS ISTENT WITH CONGESTIVE HEART FAILURE. THERE IS A MODERATE AMOUNT OF ASCITES FLUID. LARGE GALLBLADDER SUGGESTIVE OF SOME GALLBLADDER DYSFUNCTION. EXTENSIVE ATHEROSCLEROTIC VASCULAR CALCIFICATION.
[2018-03-16] MEDS: CARVEDILOL 3.125 MG TAB PO SCH (23:28)
[2018-03-16] MEDS: MIDODRINE 5 MG TAB PO SCH (23:43)
[2018-03-17 01:22] LABS: Glucose,Whole Blood 76 mg/dL (75-99)
[2018-03-17] MEDS ORDERED: DEXTROSE 50%-WATER 50 ML SYRINGE IVP STA ×2 (01:37→07:34)
[2018-03-17] MEDS: ATORVASTATIN 40 MG TAB PO SCH (01:40)
[2018-03-17] MEDS: SERTRALINE 50 MG TAB PO SCH (01:41)
[2018-03-17] MEDS: HEPARIN SODIUM,PORCINE 5,000 UNIT/ML 1 ML VIAL SQ SCH ×4 (01:42→20:37)
[2018-03-17] MEDS: NOREPINEPHRINE 4 MG in SODIUM CHLORIDE 0.9% 250 ML IV SCH (04:26)
[2018-03-17 05:19] LABS: Glucose,Whole Blood 112 mg/dL (75-99)
[2018-03-17 05:19] LABS: Glucose,Whole Blood 83 mg/dL (75-99)
[2018-03-17] MEDS ORDERED: VANCOMYCIN 1,250 MG in SODIUM CHLORIDE 0.9% 250 ML IVPB ONE (06:00)
[2018-03-17 06:06] LABS: Glucose,Whole Blood 76 mg/dL (75-99)
[2018-03-17] MEDS: FAMOTIDINE 20 MG TAB PO SCH (06:33)
[2018-03-17] MEDS: DIVALPROEX 250 MG TABLET.DR PO SCH ×2 (06:33→17:47)
[2018-03-17] MEDS: PANTOPRAZOLE 40 MG TABLET PO SCH (06:33)
[2018-03-17 07:33] LABS: Glucose,Whole Blood 62 mg/dL (75-99)
[2018-03-17] MEDS ORDERED: SODIUM CHLORIDE 0.9% 250 ML IV SCH ×2 (07:45)
[2018-03-17 07:54] LABS: Glucose,Whole Blood 135 mg/dL (75-99)
[2018-03-17] MEDS: PIPERACILLIN-TAZOBACTAM 3.375 GM in SODIUM CHLORIDE 0.9% 100 ML IVPB SCH (09:30)
[2018-03-17 10:30] LABS: Albumin 1.6 g/dL (3.5-5.0); Calcium 7.4 mg/dL (8.4-10.2); Total Bilirubin 2.5 mg/dL (0.2-1.3); Total Protein 4.4 g/dL (6.3-8.2)
[2018-03-17] MEDS ORDERED: NALOXONE 0.4 MG/ML 1 ML VIAL IV PRN (10:44)
[2018-03-17 11:26] LABS: Anisocytosis Moderate; HCT 27.9 % (39.0-53.0); MCH 34.4 pg (25.0-35.0); MCHC 34.9 g/dL (31.0-37.0); MCV 98.7 fL (80.0-100.0); Macrocytosis Moderate; Poikilocytosis Slight; RBC 2.83 m/uL (4.30-5.90); RDW 22.1 % (11.5-15.5)
[2018-03-17 11:28] LABS: HGB 9.7 gm/dL (13.0-17.5); Platelet Count 50 k/uL (150-450)
[2018-03-17] MEDS: MIDODRINE 5 MG TAB PO SCH ×3 (11:31→17:47)
[2018-03-17] MEDS: HYDROcodone/APAP 5-325MG 1 EACH TAB PO PRN (11:32)
[2018-03-17] MEDS: CARVEDILOL 3.125 MG TAB PO SCH ×2 (11:42→17:00)
--- NOTE | 2018-03-17 11:43 | ECHOF ---
Referral Reason:hypotension MEASUREMENTS -------- HEIGHT: 165.1 cm WEIGHT: 68.0 kg BP: 74/50 RVIDd: 2.2 cm (< 3.3) IVSd: 1.5 cm (0.6 - 1.1) LVIDd: 3.0 cm (3.9 - 5.3) LVPWd: 1.3 cm (0.6 - 1.1) IVSs: 1.6 cm LVIDs: 2.1 cm LVPWs: 1.3 cm LA Diam: 2.5 cm (2.7 - 3.8) Ao Diam: 2.9 cm (2.0 - 3.7) AV Cusp: 2.0 cm (1.5 - 2.6) LA Diam: 2.8 cm (2.7 - 3.8) MV EXCURSION: 18.221 mm (> 18.000) MV EF SLOPE: 60 mm/s (70 - 150) EPSS: 0.3 cm MV E Thomas: 1.11 m/s MV DecT: 105 ms MV A Thomas: 0.75 m/s MV E/A Ratio: 1.49 AV maxP.07 mmHg AV meanP.46 mmHg RAP: 5.00 mmHg RVSP: 24.09 mmHg FINDINGS -------- Sinus rhythm. This was a technically adequate study. The left ventricular size is normal. There is moderate concentric left ventricular hypertrophy. O verall left ventricular systolic function is normal with, an EF between 55 - 60 %. The right ventricle is normal in size. The left atrial size is normal. The right atrial size is normal. There is mild aortic valve sclerosis. There is mild aortic regurgitation. Peak/mean gradient acro ss the Aortic Valve is 6.07mmHg / 3.46mmHg. Mild mitral annular calcification present. Mild mitral regurgitation is present. Mild tricuspid regurgitation present. There is no evidence of pulmonary hypertension. The right v entricular systolic pressure, as measured by Doppler, is 24.09mmHg. Trace/mild (physiologic) pulmonic regurgitation. The aortic root size is normal. There is no pericardial effusion. CONCLUSIONS -------- 1. Sinus rhythm. 2. This was a technically adequate study. 3. The left ventricular size is normal. 4. There is moderate concentric left ventricular hypertrophy. 5. Overall left ventricular systolic function is normal with, an EF between 55 - 60 %. 6. The left atrial size is normal. 7. The right atrial size is normal. 8. There is mild aortic valve sclerosis. 9. There is mild aortic regurgitation. 10. Peak/mean gradient across the Aortic Valve is 6.07mmHg / 3.46mmHg. 11. Mild mitral annular calcification present. 12. Mild mitral regurgitation is present. 13. Mild tricuspid regurgitation present. 14. There is no evidence of pulmonary hypertension. 15. Trace/mild (physiologic) pulmonic regurgitation. 16. The aortic root size is normal. 17. There is no pericardial effusion. BUSINESS ANALYSIS CONSULTANT: Mehnaz Dai RDCS
[2018-03-17 11:45] LABS: Band Neutrophils % 4 %; Lymphocytes # (M) 1.17 k/uL (1.0-4.8); Monocytes # (M) 0.27 k/uL (0-1.0); Myelocytes # (M) 0.09 k/uL (0); Myelocytes % 1 %; Neutrophils % (M) 80 %; Nucleated Red Blood Cells 6 /100 WBC (0-0); Total Cells Counted 200
[2018-03-17 11:46] LABS: Poikilocytosis (M) Present
--- NOTE | 2018-03-17 12:06 | P.NPCON ---
History of Present Illness - Reason for Consult end stage renal disease - History of Present Illness Reason for consultation: End-stage renal disease History of present illness: Patient is a 42-year-old male seen in renal consultation for end-stage renal disease. He is maintained on hemodialysis on a Thursday schedule. Patient has long-standing history of diabetes mellitus. Patient underwent imvzm-ikd-zpmf amputation of the left lower extremity and subsequently required paekq-djr-xutg habitation. He currently resides at [facility]. Patient was at hemodialysis yesterday and was noted to be hypotensive with systolic blood pressure in the 70s and more lethargic. He was subsequently sent to the hospital for further care. His blood sugar was low at 36 for which she was given dextrose. Blood sugar has been stable since. Currently resting in bed. Denies chest pain or shortness of breath. He is noted to have drainage from his stump site. He also has a decubitus ulcer. He is receiving IV antibiotics. Vital signs are stable. General: The patient appeared well nourished and normally developed. HEENT: Head exam is unremarkable. Neck is without jugular venous distension. LUNGS: Lungs are clear to auscultation and percussion. Breath sounds decreased. HEART: Rate and Rhythm are regular. First and second heart sounds normal. No murmurs, rubs or gallops. ABDOMEN: Abdominal exam reveals normal bowel sounds. Non-tender and non- distended. No evidence of peritonitis. EXTREMITITES: No clubbing, cyanosis, or edema. Left AKA noted. Mild drainage noted from the stump site. Past Medical History Past Medical History: Diabetes Mellitus, Dialysis, Eye Disorder, GERD/Reflux, Hyperlipidemia, Hypertension, Renal Disease, Seizure Disorder Additional Past Medical History / Comment(s): IDDM type I, neuropathy bilateral legs/feet and alittle in bilateral hands, ESRD with hemodialysis (past peritoneal dialysis), legally blind-bilateral diabetic retinopathy, L AKA and has not required insulin since this surgery, current wound AKA posterior stump, migraines, possible seizure once-years ago History of Any Multi-Drug Resistant Organisms: VRE Date of last positivie culture/infection: 02/15/18 MDRO Source:: knee Past Surgical History: Hernia Repair Additional Past Surgical History / Comment(s): Past peritoneal dialysis catheter , current hemodialysis catheter, 01/11/18 L BKA then AKA, L eye cataract removed , multiple bilateral laser eye surgeries d/t diabetic retinopathy, umbilical hernia repair. Past Anesthesia/Blood Transfusion Reactions: No Reported Reaction Additional Past Anesthesia/Blood Transfusion Reaction / Comment(s): Pt received blood 03/16/18 without reaction. Smoking Status: Never smoker - Past Family History Mother Family Medical History: Dementia, Diabetes Mellitus, Hyperlipidemia, Hypertension Additional Family Medical History / Comment(s): Mother of dementia at the age of 71 yrs. Father Family Medical History: No Reported History Additional Family Medical History / Comment(s): Father is healthy Medications and Allergies Home Medications Medication Instructions Recorded Confirmed Type Atorvastatin [Lipitor] 40 mg PO HS 07/28/16 03/16/18 History Divalproex [Depakote] 250 mg PO BID@0600,1800 07/28/16 03/16/18 History Famotidine 20 mg PO DAILY@0600 07/28/16 03/16/18 History Omeprazole [PriLOSEC] 20 mg PO AC-BRKFST 07/28/16 03/16/18 History Sertraline [Zoloft] 50 mg PO HS 07/28/16 03/16/18 History Carvedilol [Coreg] 3.125 mg PO BID 03/16/18 03/16/18 History Allergies Allergy/AdvReac Type Severity Reaction Status Date / Time pistachio nut Allergy throat Verified 03/16/18 12:30 swelling Physical Exam Vitals: Vital Signs Temp Pulse Resp BP Pulse Ox 03/17/18 11:00 98.3 F 87 17 97/55 96 03/17/18 09:45 88 16 103/67 98 03/17/18 09:27 87 16 97/65 98 03/17/18 08:57 87 16 93/53 98 03/17/18 08:30 87 16 99/56 96 03/17/18 08:15 86 16 91/68 98 03/17/18 08:00 86 16 91/60 98 03/17/18 07:15 99.2 F 87 16 91/52 99 03/17/18 04:33 85 16 74/50 100 03/17/18 04:00 86 10 L 75/59 95 03/17/18 03:00 84 17 91 L 03/17/18 02:00 81 17 83/52 96 03/17/18 01:00 83 18 80/50 95 03/17/18 00:00 84 16 82/51 96 03/16/18 23:20 97.8 F 86 16 86/46 03/16/18 23:00 85 10 L 87/77 97 03/16/18 22:47 85 16 87/77 98 03/16/18 22:31 85 10 L 76/51 03/16/18 22:03 97.8 F 86 16 71/51 03/16/18 22:00 85 16 80/53 97 03/16/18 21:33 97.7 F 87 16 84/49 03/16/18 21:23 97.5 F L 81 16 86/41 03/16/18 21:00 80 14 77/47 94 L 03/16/18 20:00 80 12 76/42 94 L 03/16/18 19:00 82 14 82/48 98 03/16/18 18:00 80 14 81/44 98 03/16/18 17:00 81 12 72/46 97 03/16/18 16:00 81 11 L 97/44 88 L 03/16/18 15:40 81 14 77/48 90 L 03/16/18 15:20 81 12 62/44 94 L 03/16/18 15:00 80 16 75/47 95 03/16/18 14:40 80 9 L 85/43 97 03/16/18 14:20 80 11 L 81/44 93 L 03/16/18 14:00 81 7 L 80/49 92 L 03/16/18 13:40 77 15 79/46 94 L 03/16/18 13:20 80 11 L 72/48 99 03/16/18 13:00 80 8 L 67/48 99 03/16/18 12:40 80 13 99 03/16/18 12:24 81 5 L 74/69 98 Intake and Output 03/16/18 03/17/18 03/17/18 22:59 06:59 14:59 Intake Total 0 2.93 Balance 0 2.93 Intake: Intake, IV Titration 2.93 Amount Norepinephrine 4 mg In 2.93 Sodium Chloride 0.9% 250 ml @ Titrate IV .Q0M [facility] Rx#:[id number] Blood Product 0 0 Rc As-1 Unit 0 0 [id number] Results - Lab Results Most recent lab results Calcium 7.4 mg/dL (8.4-10.2) L 03/17/18 09:20 Magnesium 1.8 mg/dL (1.6-2.3) 03/16/18 12:16 03/17/18 09:20 03/17/18 09:20 Assessment and Plan Plan: Assessment: 1. End-stage renal disease maintained on hemodialysis on a Thursday schedule. 2. Hypokalemia from poor oral intake and low potassium dialysate. 3. Hypotension with concern for underlying sepsis. Currently on 2 mics of Levophed. 4. Hypoglycemia status post dextrose. Resolved. 5. Diabetes mellitus. 6. Volume overload. 7. Status post left tpmww-mfd-uoyt amputation. 8. Anemia of chronic kidney disease. Rule out iron deficiency. 9. Chronic kidney disease mineral bone disease. Plan: Hemodialysis today since he did not complete his treatment yesterday. Full treatment tomorrow per his outpatient schedule. Check iron studies. Add Aranesp. Maintain midodrine. Wean Levophed. Follow-up cultures. Antibiotics per infectious disease recommendations. Replace potassium. 60 mg once today. Check phosphorus level and PTH. Avoid calcium based binders. Maintain midodrine. Thank you for the consultation. I will continue to follow the patient with you during his hospital stay.
[2018-03-17 12:14] LABS: Albumin 1.5 g/dL (3.5-5.0); Calcium 7.4 mg/dL (8.4-10.2); Magnesium 1.7 mg/dL (1.6-2.3); Phosphorus 2.1 mg/dL (2.5-4.5); Total Bilirubin 2.4 mg/dL (0.2-1.3); Total Protein 4.2 g/dL (6.3-8.2)
[2018-03-17] MEDS ORDERED: DARBEPOETIN ALFA 40 MCG/0.4 ML SYRINGE SQ SCH (12:15)
[2018-03-17 12:34] LABS: Potassium 2.7 mmol/L (3.5-5.1)
[2018-03-17] MEDS: POTASSIUM CHLORIDE ER 10 MEQ TAB.ER.PRT PO SCH ×2 (12:38→14:52)
[2018-03-17 12:50] LABS: Platelet Count 85 k/uL (150-450)
--- NOTE | 2018-03-17 13:39 | P.CNPUL ---
History of Present Illness Consult date: 03/17/18 Requesting physician: Phong Villalta Chief complaint: Hypotension, lethargy, hypoglycemia History of present illness: This is a 42-year-old patient with past medical history of end-stage renal disease on hemodialysis, diabetes mellitus type 2, diabetic retinopathy, hypertension, hyperlipidemia, left eye cataract, recent left AKA related to left lower leg diabetic ulcers, infection, and osteomyelitis, who presented to the hospital per EMS on 03/16/2018 at 11:00 in the morning for evaluation of hypotension, lethargy, and hypoglycemia. Patient did his usual dialysis treatment, and angiogram reportedly runs a low blood pressure, usually with SBP in the 80s, this time blood pressure was noted to be around 70. He denied any fever or chills, no difficulty breathing, no chest pain no nausea, no vomiting, no diarrhea. Patient does have a chronic wound on his left stump. Lab work did not show any evidence of leukocytosis, the CBC is 6.1, hemoglobin is 7.2 oh evidence of bleeding, troponin was 0.014, serum sodium was 133, potassium is 3.1 , chloride is 96, BUN is 4, creatinine is 2.03. His serum glucose was 36, she was treated with 1 amp of D50 in the emergency department, plasma lactic acid was 5.7, LFTs were elevated, the AST was 1046, ALT was 231, alkaline phosphatase was 415, total CK was 230, lipase was 29, albumin was 1.6. Chest x- ray showed small basilar pleural effusions and mild atelectasis. EKG showed normal sinus rhythm with nonspecific ST abnormality. Brain CT showed no acute intracranial process, showed right mastoid sinus and middle ear cavity opacification. CT of abdomen and pelvis showed cardiomegaly with pleural effusions and basilar consolidation and atelectasis. Moderate amount of ascites fluid, large gallbladder suggestive of some gallbladder dysfunction, was no evidence of free air, there was extensive vessel calcification. No retroperitoneal adenopathy, no bony destructive process. Patient given a IV fluid bolus of 0.9 normal saline, and his maintenance IV fluids at 75 ML per hour with subsequent improvement of his blood pressure, he was started on Midrin at 5 mg 3 times daily. Started on Zosyn and vancomycin for empiric antibiotic coverage, blood cultures and urine cultures were collected and sent. He was started on small dose of Levofed. Currently his blood pressure is 93/ 53, patient is afebrile, pulse ox on 2 L per nasal cannula is 98%, remains on small dose of Levophed, currently at 1 jasvir per minute. Patient has a draining wound on his left stump, he has a stage III on his coccyx present on admission, with yellow slough off in the wound bed. ID service has been consult, surgery has been consulted for left stump wound Review of Systems All systems: negative Constitutional: Reports lethargy, Denies chills, Denies fever Eyes: denies blurred vision, denies pain Ears, nose, mouth and throat: Denies headache, Denies sore throat Cardiovascular: Denies chest pain, Denies shortness of breath Respiratory: Denies cough Gastrointestinal: Denies abdominal pain, Denies diarrhea, Denies nausea, Denies vomiting Musculoskeletal: Reports gait dysfunction, Reports prior amputations, Denies myalgias Integumentary: Denies pruritus, Denies rash Neurological: Reports change in mentation, Denies numbness, Denies weakness Psychiatric: Reports hypersomnia, Denies anxiety, Denies depression Endocrine: Reports low blood sugars, Denies fatigue, Denies weight change Past Medical History Past Medical History: Diabetes Mellitus, Dialysis, Eye Disorder, GERD/Reflux, Hyperlipidemia, Hypertension, Renal Disease Additional Past Medical History / Comment(s): migraines, stage 5 kidney disease , peritoneal dialysis daily (overnight and 2x during the day), diabetic retinopathy History of Any Multi-Drug Resistant Organisms: VRE Date of last positivie culture/infection: 02/15/18 MDRO Source:: knee Additional Past Surgical History / Comment(s): periotoneal dialysis catheter insertion 03/2014, left eye cataract, mult laser retinal surgeries both eyes , left AKA Past Anesthesia/Blood Transfusion Reactions: No Reported Reaction Past Psychological History: No Psychological Hx Reported Smoking Status: Never smoker Past Alcohol Use History: None Reported, Occasional Past Drug Use History: None Reported - Past Family History Mother Family Medical History: No Reported History Father Family Medical History: No Reported History Additional Family Medical History / Comment(s): Father is healthy Medications and Allergies Home Medications Medication Instructions Recorded Confirmed Type Atorvastatin [Lipitor] 40 mg PO HS 07/28/16 03/16/18 History Divalproex [Depakote] 250 mg PO BID@0600,1800 07/28/16 03/16/18 History Famotidine 20 mg PO DAILY@0600 07/28/16 03/16/18 History Omeprazole [PriLOSEC] 20 mg PO AC-BRKFST 07/28/16 03/16/18 History Sertraline [Zoloft] 50 mg PO HS 07/28/16 03/16/18 History Carvedilol [Coreg] 3.125 mg PO BID 03/16/18 03/16/18 History Allergies Allergy/AdvReac Type Severity Reaction Status Date / Time pistachio nut Allergy throat Verified 03/16/18 12:30 swelling Physical Exam Vitals: Vital Signs Temp Pulse Resp BP Pulse Ox 03/17/18 08:30 87 16 99/56 96 03/17/18 08:15 86 16 91/68 98 03/17/18 08:00 86 16 91/60 98 03/17/18 07:15 99.2 F 87 16 91/52 99 03/17/18 04:33 85 16 74/50 100 03/17/18 04:00 86 10 L 75/59 95 03/17/18 03:00 84 17 91 L 03/17/18 02:00 81 17 83/52 96 03/17/18 01:00 83 18 80/50 95 03/17/18 00:00 84 16 82/51 96 03/16/18 23:20 97.8 F 86 16 86/46 03/16/18 23:00 85 10 L 87/77 97 03/16/18 22:47 85 16 87/77 98 03/16/18 22:31 85 10 L 76/51 03/16/18 22:03 97.8 F 86 16 71/51 03/16/18 22:00 85 16 80/53 97 03/16/18 21:33 97.7 F 87 16 84/49 03/16/18 21:23 97.5 F L 81 16 86/41 03/16/18 21:00 80 14 77/47 94 L 03/16/18 20:00 80 12 76/42 94 L 03/16/18 19:00 82 14 82/48 98 03/16/18 18:00 80 14 81/44 98 03/16/18 17:00 81 12 72/46 97 03/16/18 16:00 81 11 L 97/44 88 L 03/16/18 15:40 81 14 77/48 90 L 03/16/18 15:20 81 12 62/44 94 L 03/16/18 15:00 80 16 75/47 95 03/16/18 14:40 80 9 L 85/43 97 03/16/18 14:20 80 11 L 81/44 93 L 03/16/18 14:00 81 7 L 80/49 92 L 03/16/18 13:40 77 15 79/46 94 L 03/16/18 13:20 80 11 L 72/48 99 03/16/18 13:00 80 8 L 67/48 99 03/16/18 12:40 80 13 99 03/16/18 12:24 81 5 L 74/69 98 03/16/18 11:41 98.1 F 78 18 90/50 98 Intake and Output 03/16/18 03/17/18 03/17/18 22:59 06:59 14:59 Intake Total 0 2.93 Balance 0 2.93 Intake: Intake, IV Titration 2.93 Amount Norepinephrine 4 mg In 2.93 Sodium Chloride 0.9% 250 ml @ Titrate IV .Q0M [facility] Rx#:[id number] Blood Product 0 0 Rc As-1 Unit 0 0 [id number] GENERAL EXAM: Pleasant, 42-year-old white male, somnolent, but easily arousable to verbal stimuli comfortable in no apparent distress. HEAD: Normocephalic/atraumatic. EYES: Normal reaction of pupils, equal size. Conjunctiva pink, sclera white. NOSE: Clear with pink turbinates. THROAT: No erythema or exudates. NECK: No masses, no JVD, no thyroid enlargement, no adenopathy. CHEST: No chest wall deformity. Symmetrical expansion. Right upper chest Benito cath for hemodialysis LUNGS: Equal air entry with no crackles, wheeze, rhonchi or dullness. Diminished breath sounds at the bases CVS: Regular rate and rhythm, normal S1 and S2, no gallops, no murmurs, no rubs ABDOMEN: Soft, nontender. No hepatosplenomegaly, normal bowel sounds, no guarding or rigidity. EXTREMITIES: No clubbing, no edema, no cyanosis, 1+ pedal pulse in the right lower extremity, left AKA stump wound, draining, and there is yellow slough in the wound bed. Stage III on coccyx MUSCULOSKELETAL: Muscle strength and tone normal. SPINE: No scoliosis or deformity SKIN: No rashes CENTRAL NERVOUS SYSTEM: Alert and oriented -2. No focal deficits, tone is normal in all 4 extremities. Results - Laboratory Findings CBC and BMP: 03/17/18 09:20 03/17/18 11:20 Abnormal lab findings: Abnormal Labs 03/16/18 03/16/18 03/16/18 12:16 12:16 12:16 RBC 2.04 L Hgb 7.2 L D Hct 20.9 L MCV 102.3 H MCH 35.2 H RDW 20.1 H Plt Count 85 L D Lymphocytes # (Manual) 0.92 L Myelocytes # (Manual) 0.06 H Nucleated RBCs 8 H Sodium 133 L Potassium 3.1 L Chloride 96 L BUN 4 L Creatinine 2.03 H Glucose 36 L* POC Glucose (mg/dL) Plasma Lactic Acid Duong Calcium 7.5 L Total Bilirubin 1.9 H AST 1046 H ALT 231 H Alkaline Phosphatase 415 H Total Creatine Kinase 230 H Total Protein 4.5 L Albumin 1.6 L Crossmatch 03/16/18 03/16/18 03/16/18 12:16 20:20 20:58 RBC Hgb Hct MCV MCH RDW Plt Count Lymphocytes # (Manual) Myelocytes # (Manual) Nucleated RBCs Sodium Potassium Chloride BUN Creatinine Glucose POC Glucose (mg/dL) 71 L 72 L Plasma Lactic Acid Duong Calcium Total Bilirubin AST ALT Alkaline Phosphatase Total Creatine Kinase Total Protein Albumin Crossmatch See Detail 03/16/18 03/16/18 03/17/18 21:16 21:35 01:16 RBC Hgb Hct MCV MCH RDW Plt Count Lymphocytes # (Manual) Myelocytes # (Manual) Nucleated RBCs Sodium Potassium Chloride BUN Creatinine Glucose POC Glucose (mg/dL) 130 H Plasma Lactic Acid Duong 5.7 H* 6.6 H* Calcium Total Bilirubin AST ALT Alkaline Phosphatase Total Creatine Kinase Total Protein Albumin Crossmatch 03/17/18 03/17/18 03/17/18 03:12 07:02 07:50 RBC Hgb Hct MCV MCH RDW Plt Count Lymphocytes # (Manual) Myelocytes # (Manual) Nucleated RBCs Sodium Potassium Chloride BUN Creatinine Glucose POC Glucose (mg/dL) 112 H 62 L 135 H Plasma Lactic Acid Duong Calcium Total Bilirubin AST ALT Alkaline Phosphatase Total Creatine Kinase Total Protein Albumin Crossmatch - Diagnostic Findings Chest x-ray: report reviewed, image reviewed Additional studies: CT of the brain, CT of the abdomen and pelvis, EKG results reviewed Assessment and Plan Plan: Assessment: #1. Altered mental status, hypotension, lactic acidosis, rule out sepsis #2. Hypoglycemia #3. Draining wound on the left stump, present on admission #4. Decubitus ulcer on coccyx, stage III, with slough in the wound bed, present on admission #5. Elevated transaminases #6. Bilateral pleural effusions #7. End-stage renal disease, on hemodialysis, patient had previously been on peritoneal dialysis, however switched to hemodialysis in view of malfunctioning peritoneal catheter #8. Diabetes mellitus type 2, with diabetic retinopathy #9. Hypertention, hyperlipidemia #10. History of left above-knee amputation in January 2018, for osteomyelitis of left lower extremity #11. Chronic macrocytic anemia #12. History of migraines Plan: Patient did receive fluid resuscitation in the emergency department, was restarted on Midrin, and remains on small dose Levaquin fed. Cultures have been collected and sent, and pending at this time, continue with current antibiotic coverage, including Zosyn and vancomycin. Obtain culture of the left stump drainage, and culture the oxygen to wound. Vascular surgery has been consulted for left stump wound. ID service has been consulted. Abdomen/ pelvis CT showed bilateral pleural effusions, and cardiomegaly, changes consistent with congestive heart failure, 2-D echo has been ordered, and pending at this time. Nephrology has been consulted. Patient will be admitted to the intensive care unit, for further monitoring and treatment. GI and DVT prophylaxis, we'll continue to monitor. I performed a history & physical examination of the patient and discussed their management with my nurse practitioner, Neha Franklin. I reviewed the nurse practitioner's note and agree with the documented findings and plan of care. Lung sounds are positive for diminished at the bases. The findings and the impression was discussed with the patient. I attest to the documentation by the nurse practitioner. Time with Patient: Greater than 30
[2018-03-17] MEDS: COLLAGENASE 250 UNIT/GM OINTMENT 30 GM TUBE TOPICAL SCH (14:52)
[2018-03-17 17:48] LABS: Glucose,Whole Blood 47 mg/dL (75-99)
[2018-03-17 17:48] LABS: Glucose,Whole Blood 52 mg/dL (75-99)
[2018-03-17] MEDS: SODIUM CHLORIDE 0.9% 500 ML 500 ML IV SCH (18:03)
[2018-03-17 18:12] LABS: Glucose,Whole Blood 40 mg/dL (75-99)
[2018-03-17 18:12] LABS: Glucose,Whole Blood 70 mg/dL (75-99)
[2018-03-17 19:10] LABS: Glucose,Whole Blood 121 mg/dL (75-99)
[2018-03-17 19:46] LABS: Hemoglobin A1C 4.6 % (4.0-6.0)
[2018-03-17 19:54] LABS: Parathyroid Hormone Intact 85.9 pg/mL (14.0-72.0)
[2018-03-17 20:45] LABS: Glucose,Whole Blood 113 mg/dL (75-99)
[2018-03-17 22:11] LABS: Iron Saturation 39.56 (15.00-50.00)
--- NOTE | 2018-03-18 00:06 | CONS ---
CONSULTATION DATE OF SERVICE: 03/17/2018 REASON FOR CONSULTATION: Sacral wound, left AKA wound and a question of cellulitis and antibiotic recommendations. HISTORY OF PRESENT ILLNESS: The patient is a 42-year-old male with a past medical history significant for end-stage renal disease, on hemodialysis. Patient recently had left leg necrotizing infection that initially led to left afoir-jcr-imqn amputation. That subsequently was transitioned to left equwo-azb-znhj amputation because of infection of the left BKA stump. The patient also has developed a stage III sacral pressure ulcer the last few admissions to hospital. The patient apparently was undergoing dialysis yesterday, and during dialysis the patient was noticed to have hypotension that was more than usual for him. The patient was also noticed to be lethargic with low blood sugar. Subsequently the patient was sent to the [facility] ER for further evaluation. On arrival in the ER, the patient did have a chest x-ray that showed evidence of fluid overload. CT of the brain did not show any evidence of any bleed. CT of abdomen and pelvis shows enlarged gallbladder, but no other abnormality. The patient did have a wound to his left AKA stump and is getting mostly regarding edges, but no redness or any drainage, and he has a wound to the sacral area, for which Infectious Disease was consulted for further recommendations regarding antibiotic therapy. The patient was started on broad-spectrum antibiotics in form of vancomycin and Zosyn pending culture report. The patient is not a very good historian. He was noted to be slightly weak and lethargic at the time of my evaluation and did require some pressor support earlier per the nurse taking care of the patient. REVIEW OF SYSTEMS: Positive points have been mentioned in HPI. Complete review unable to be obtained because of his underlying clinical condition. PAST MEDICAL HISTORY: Past medical history is significant for: 1. Necrotizing fascitis of the left leg. 2. End-stage renal disease, on hemodialysis. 3. Hyperlipidemia. 4. Hypertension. 5. Gastroesophageal reflux disease. 6. Migraine headaches. 7. Diabetic retinopathy. PAST SURGICAL HISTORY: 1. Peritoneal dialysis catheter insertion and subsequent removal. 2. Left hkkbm-vjf-gfgh and followed by left ltivk-lcv-hkby amputation. SOCIAL HISTORY: No history of smoking, drinking or drug use. FAMILY HISTORY: Both parents are healthy and alive. ALLERGIES: NO KNOWN DRUG ALLERGIES. CURRENT MEDICATIONS: The patient's current medications include: 1. Restoril. 2. Saline. 3. Zoloft. 4. Zosyn. 5. Protonix. 6. Narcan. 7. Vancomycin, Pharmacy to dose. 8. Pepcid. 9. Depakote. 10.Aranesp. 11.Coreg. 12.Xanax. 13.Lipitor. 14.[place]. PHYSICAL EXAMINATION: Blood pressure is 97/58 with a pulse of 85, temperature 98.4. He is 95% on room air. General description is a middle-aged male lying in bed in no distress. No tachypnea or accessory muscle of respiration use. HEENT examination shows slight pallor. No scleral icterus. Oral mucosa membrane is dry. No pharyngeal erythema or thrush. NECK: Trachea is central. No thyromegaly. LUNGS: Unlabored breathing. Clear to auscultation anteriorly. HEART: S1, S2. Regular rate and rhythm. ABDOMEN: Soft. Mild distention. No guarding or rigidity. No organomegaly. Left AKA stump with mostly necrotic black edges, but no redness or any drainage. The patient did have a stage III sacral wound with some slough tissue and surrounding redness but no foul-smelling drainage. NEUROLOGICAL: Patient is awake, alert, oriented x2. LABS: Hemoglobin 9.7, white count 9.0 with a BUN of 4, creatinine 2.70, potassium 2.7. Lactic acid 8.8. Repeat was 9.5. Liver enzymes are elevated. CT report as mentioned above. DIAGNOSTIC IMPRESSION AND PLAN: 1. Patient with a stage III sacral wound with subfascial abscess with secondary cellulitis; underlying infection not entirely excluded; question of possibly related to gram-positive skin ibrahima. However, to the GI tract underlying gram-negative infection not entirely excluded. 2. Patient with a left above-knee amputation stump wound with some necrotic areas, but no definite cellulitis. PLAN: 1. Local wound care to the sacral wound with Santyl followed by moist dressing. Keep the area off pressure. 2. Left AKA stump to be kept dry, with no need for any application of any lotion or creams. 3. Vancomycin, Pharmacy to dose, and Zosyn will provide adequate coverage from antibiotic therapy. 4. Await general surgery evaluation and debridement of the wound and deep cultures. 5. Will follow on his clinical condition and culture to further adjust medication if needed. Thank you for this consultation. Will follow this patient along with you. MMODL / IJN: [id number] /
[2018-03-18] MEDS: ATORVASTATIN 40 MG TAB PO SCH ×2 (00:13→20:34)
[2018-03-18] MEDS: SERTRALINE 50 MG TAB PO SCH ×2 (00:13→20:34)
[2018-03-18] MEDS: PIPERACILLIN-TAZOBACTAM 3.375 GM in SODIUM CHLORIDE 0.9% 100 ML IVPB SCH ×3 (00:13→20:34)
[2018-03-18] MEDS: HYDROcodone/APAP 5-325MG 1 EACH TAB PO PRN ×3 (00:20→16:44)
[2018-03-18 01:47] LABS: Glucose,Whole Blood 45 mg/dL (75-99)
[2018-03-18] MEDS ORDERED: DEXTROSE 50%-WATER 50 ML SYRINGE IVP STA ×4 (02:03→17:21)
[2018-03-18 02:18] LABS: Glucose,Whole Blood 42 mg/dL (75-99)
[2018-03-18] MEDS: NOREPINEPHRINE 4 MG in SODIUM CHLORIDE 0.9% 250 ML IV SCH ×2 (03:07→14:27)
[2018-03-18 03:12] LABS: Glucose,Whole Blood 114 mg/dL (75-99)
[2018-03-18 05:40] LABS: Hepatitis B Surface AB- Quant 71.8 mIU/mL
[2018-03-18] MEDS: FAMOTIDINE 20 MG TAB PO SCH (05:54)
[2018-03-18] MEDS: HEPARIN SODIUM,PORCINE 5,000 UNIT/ML 1 ML VIAL SQ SCH ×3 (05:54→20:34)
[2018-03-18] MEDS: CARVEDILOL 3.125 MG TAB PO SCH ×2 (05:56→16:35)
[2018-03-18] MEDS: DIVALPROEX 250 MG TABLET.DR PO SCH ×2 (05:56→18:16)
[2018-03-18 06:12] LABS: Anisocytosis Moderate; HCT 29.7 % (39.0-53.0); HGB 9.6 gm/dL (13.0-17.5); Hypochromasia Moderate; MCH 33.8 pg (25.0-35.0); MCHC 32.2 g/dL (31.0-37.0); Macrocytosis Marked; Mean Platelet Volume 9.7; Poikilocytosis Slight; RBC 2.83 m/uL (4.30-5.90); RDW 23.5 % (11.5-15.5)
[2018-03-18 06:18] LABS: Platelet Count 62 k/uL (150-450)
[2018-03-18 06:29] LABS: Albumin 1.6 g/dL (3.5-5.0); Calcium 7.6 mg/dL (8.4-10.2); Magnesium 1.7 mg/dL (1.6-2.3); Phosphorus 2.2 mg/dL (2.5-4.5); Potassium 3.6 mmol/L (3.5-5.1); Total Bilirubin 2.7 mg/dL (0.2-1.3); Total Protein 4.6 g/dL (6.3-8.2)
[2018-03-18 06:53] LABS: Vancomycin,Random 26.7 ug/mL
[2018-03-18] MEDS: PANTOPRAZOLE 40 MG TABLET PO SCH (06:53)
[2018-03-18] MEDS: MIDODRINE 5 MG TAB PO SCH ×3 (06:54→18:16)
[2018-03-18 07:03] LABS: Glucose,Whole Blood 69 mg/dL (75-99)
[2018-03-18 07:14] LABS: Band Neutrophils % 2 %; Lymphocytes # (M) 1.23 k/uL (1.0-4.8); Metamyelocytes # (M) 0.14 k/uL (0); Metamyelocytes % 1 %; Monocytes # (M) 0.55 k/uL (0-1.0); Neutrophils % (M) 85 %; Nucleated Red Blood Cells 10 /100 WBC (0-0); Total Cells Counted 200; WBC 13.7 k/uL (3.8-10.6)
[2018-03-18 07:15] LABS: Toxic Vacuolation Present
--- NOTE | 2018-03-18 07:19 | XR ---
EXAMINATION TYPE: XR chest 1V DATE OF EXAM: 03/18/2018 CLINICAL HISTORY: Difficulty breathing progress study. TECHNIQUE: Single AP portable upright view of the chest is obtained. COMPARISON: Chest x-ray from 2 days earlier. FINDINGS: There is right internal jugular large bore dialysis catheter with tips in right atrium and at cavoatrial Junction redemonstrated. Cardiac silhouette size is stable and mildly enlarged. There is worsening central vascular congestion and increasing small to moderate-sized right greater than le ft pleural effusions with associated bibasilar compressive atelectasis. Upper lungs are clear without pneumothorax. Osseous structures are somewhat demineralized. IMPRESSION: Correlate for developing or worsening CHF exacerbation as there is cardiomegaly with wors ening central vascular congestion and developing central alveolar edema, there is enlarging right gre ater than left small to moderate-sized bilateral pleural effusions also noted.
[2018-03-18] MEDS ORDERED: MAGNESIUM SULFATE-D5W PMX 1 GM in DEXTROSE/WATER 1 100ML.BAG IVPB ONE (08:00)
[2018-03-18 08:48] LABS: Glucose,Whole Blood 54 mg/dL (75-99)
[2018-03-18 09:15] LABS: Glucose,Whole Blood 58 mg/dL (75-99)
[2018-03-18] MEDS: POTASSIUM CHLORIDE ER 20 MEQ TAB.ER PO SCH ×2 (09:32→12:30)
--- NOTE | 2018-03-18 09:42 | P.PN ---
Subjective Patient is seen in follow-up for end-stage renal disease. He is maintained on hemodialysis on a Thursday schedule. Currently seen while undergoing hemodialysis. Patient is awake but somewhat lethargic. Patient continues to have episodes of hypoglycemia. Oral intake is poor. Currently on low-dose Levophed. Vital signs are stable. General: The patient appeared well nourished and normally developed. HEENT: Head exam is unremarkable. Neck is without jugular venous distension. LUNGS: Lungs are clear to auscultation and percussion. Breath sounds decreased. HEART: Rate and Rhythm are regular. First and second heart sounds normal. No murmurs, rubs or gallops. ABDOMEN: Abdominal exam reveals normal bowel sounds. Non-tender and non- distended. No evidence of peritonitis. EXTREMITITES: No clubbing, cyanosis, or edema. Left AKA noted. Objective - Vital Signs Vital signs: Vital Signs Temp 97.8 F 03/18/18 09:00 Pulse 90 03/18/18 09:00 Resp 17 03/18/18 09:00 BP 82/69 03/18/18 09:00 Pulse Ox 97 03/18/18 09:00 Intake & Output 03/17/18 03/18/18 03/18/18 18:59 06:59 18:59 Intake Total 329.375 619.678 Output Total 0 Balance 329.375 619.678 Weight 70 kg Intake: IV 305 260 Sodium Chloride 0.9% 1, 225 000 ml @ 75 mls/hr IV . [id number] STA Rx#:[id number] Sodium Chloride 0.9% 500 80 260 ml 500 ml @ 20 mls/hr IV .Q24H KHADAR Rx#:[id number] Intake, IV Titration 24.375 359.678 Amount Norepinephrine 4 mg In 24.375 209.678 Sodium Chloride 0.9% 250 ml @ Titrate IV .Q0M KHADAR Rx#:[id number] Piperacillin-Tazobactam 3 100 .375 gm In Sodium Chloride 0.9% 100 ml @ 25 mls/hr IVPB Q12HR [facility]HAD[facility] Rx #:[id number] Sodium Chloride 0.9% 500 50 ml 500 ml @ 20 mls/hr IV .Q24H KHADAR Rx#:[id number] Output: Urine 0 Other: # Bowel Movements 1 - Labs CBC & Chem 7: 03/18/18 05:19 03/18/18 05:19 Labs: Abnormal Lab Results - Last 24 Hours (Table) 03/16/18 03/17/18 03/17/18 Range/Units 12:16 09:20 09:20 WBC (3.8-10.6) k/uL RBC 2.83 L (4.30-5.90) m/uL Hgb 9.7 L D (13.0-17.5) gm/dL Hct 27.9 L (39.0-53.0) % MCV (80.0-100.0) fL RDW 22.1 H (11.5-15.5) % Plt Count 85 L D 50 L (150-450) k/uL Neutrophils # (Manual) (1.3-7.7) k/uL Metamyelocytes # (Man) (0) k/uL Myelocytes # (Manual) 0.09 H (0) k/uL Nucleated RBCs 6 H (0-0) /100 WBC Sodium 135 L (137-145) mmol/L Potassium 3.0 L (3.5-5.1) mmol/L Carbon Dioxide 18 L (22-30) mmol/L BUN 4 L (9-20) mg/dL Creatinine 2.57 H (0.66-1.25) mg/dL Glucose 100 H (74-99) mg/dL POC Glucose (mg/dL) (75-99) mg/dL Plasma Lactic Acid Duong (0.7-2.0) mmol/L Calcium 7.4 L (8.4-10.2) mg/dL Phosphorus (2.5-4.5) mg/dL Iron (65-175) ug/dL TIBC (228-460) ug/dL Ferritin (22.0-322.0) ng/mL Total Bilirubin 2.5 H (0.2-1.3) mg/dL AST 1466 H (17-59) U/L ALT 303 H (21-72) U/L Alkaline Phosphatase 388 H (38-126) U/L Total Protein 4.4 L (6.3-8.2) g/dL Albumin 1.6 L (3.5-5.0) g/dL PTH Intact (14.0-72.0) pg/mL Hep Bs Antibody (Non-Reactive) 03/17/18 03/17/18 03/17/18 Range/Units 11:20 11:20 11:20 WBC (3.8-10.6) k/uL RBC (4.30-5.90) m/uL Hgb (13.0-17.5) gm/dL Hct (39.0-53.0) % MCV (80.0-100.0) fL RDW (11.5-15.5) % Plt Count (150-450) k/uL Neutrophils # (Manual) (1.3-7.7) k/uL Metamyelocytes # (Man) (0) k/uL Myelocytes # (Manual) (0) k/uL Nucleated RBCs (0-0) /100 WBC Sodium (137-145) mmol/L Potassium 2.7 L* (3.5-5.1) mmol/L Carbon Dioxide 18 L (22-30) mmol/L BUN 4 L (9-20) mg/dL Creatinine 2.70 H (0.66-1.25) mg/dL Glucose (74-99) mg/dL POC Glucose (mg/dL) (75-99) mg/dL Plasma Lactic Acid Duong 8.8 H* (0.7-2.0) mmol/L Calcium 7.4 L (8.4-10.2) mg/dL Phosphorus 2.1 L (2.5-4.5) mg/dL Iron 36 L (65-175) ug/dL TIBC 91 L (228-460) ug/dL Ferritin >58314.0 H (22.0-322.0) ng/mL Total Bilirubin 2.4 H (0.2-1.3) mg/dL AST 1420 H (17-59) U/L ALT 309 H (21-72) U/L Alkaline Phosphatase 399 H (38-126) U/L Total Protein 4.2 L (6.3-8.2) g/dL Albumin 1.5 L (3.5-5.0) g/dL PTH Intact 85.9 H (14.0-72.0) pg/mL Hep Bs Antibody (Non-Reactive) 03/17/18 03/17/18 03/17/18 Range/Units 15:37 15:37 17:44 WBC (3.8-10.6) k/uL RBC (4.30-5.90) m/uL Hgb (13.0-17.5) gm/dL Hct (39.0-53.0) % MCV (80.0-100.0) fL RDW (11.5-15.5) % Plt Count (150-450) k/uL Neutrophils # (Manual) (1.3-7.7) k/uL Metamyelocytes # (Man) (0) k/uL Myelocytes # (Manual) (0) k/uL Nucleated RBCs (0-0) /100 WBC Sodium (137-145) mmol/L Potassium (3.5-5.1) mmol/L Carbon Dioxide (22-30) mmol/L BUN (9-20) mg/dL Creatinine (0.66-1.25) mg/dL Glucose (74-99) mg/dL POC Glucose (mg/dL) 47 L (75-99) mg/dL Plasma Lactic Acid Duong 9.5 H* (0.7-2.0) mmol/L Calcium (8.4-10.2) mg/dL Phosphorus (2.5-4.5) mg/dL Iron (65-175) ug/dL TIBC (228-460) ug/dL Ferritin (22.0-322.0) ng/mL Total Bilirubin (0.2-1.3) mg/dL AST (17-59) U/L ALT (21-72) U/L Alkaline Phosphatase (38-126) U/L Total Protein (6.3-8.2) g/dL Albumin (3.5-5.0) g/dL PTH Intact (14.0-72.0) pg/mL Hep Bs Antibody Reactive H (Non-Reactive) 03/17/18 03/17/18 03/17/18 Range/Units 17:45 18:07 18:08 WBC (3.8-10.6) k/uL RBC (4.30-5.90) m/uL Hgb (13.0-17.5) gm/dL Hct (39.0-53.0) % MCV (80.0-100.0) fL RDW (11.5-15.5) % Plt Count (150-450) k/uL Neutrophils # (Manual) (1.3-7.7) k/uL Metamyelocytes # (Man) (0) k/uL Myelocytes # (Manual) (0) k/uL Nucleated RBCs (0-0) /100 WBC Sodium (137-145) mmol/L Potassium (3.5-5.1) mmol/L Carbon Dioxide (22-30) mmol/L BUN (9-20) mg/dL Creatinine (0.66-1.25) mg/dL Glucose (74-99) mg/dL POC Glucose (mg/dL) 52 L 40 L 70 L (75-99) mg/dL Plasma Lactic Acid Duong (0.7-2.0) mmol/L Calcium (8.4-10.2) mg/dL Phosphorus (2.5-4.5) mg/dL Iron (65-175) ug/dL TIBC (228-460) ug/dL Ferritin (22.0-322.0) ng/mL Total Bilirubin (0.2-1.3) mg/dL AST (17-59) U/L ALT (21-72) U/L Alkaline Phosphatase (38-126) U/L Total Protein (6.3-8.2) g/dL Albumin (3.5-5.0) g/dL PTH Intact (14.0-72.0) pg/mL Hep Bs Antibody (Non-Reactive) 03/17/18 03/17/18 03/18/18 Range/Units 19:07 20:32 01:45 WBC (3.8-10.6) k/uL RBC (4.30-5.90) m/uL Hgb (13.0-17.5) gm/dL Hct (39.0-53.0) % MCV (80.0-100.0) fL RDW (11.5-15.5) % Plt Count (150-450) k/uL Neutrophils # (Manual) (1.3-7.7) k/uL Metamyelocytes # (Man) (0) k/uL Myelocytes # (Manual) (0) k/uL Nucleated RBCs (0-0) /100 WBC Sodium (137-145) mmol/L Potassium (3.5-5.1) mmol/L Carbon Dioxide (22-30) mmol/L BUN (9-20) mg/dL Creatinine (0.66-1.25) mg/dL Glucose (74-99) mg/dL POC Glucose (mg/dL) 121 H 113 H 45 L (75-99) mg/dL Plasma Lactic Acid Duong (0.7-2.0) mmol/L Calcium (8.4-10.2) mg/dL Phosphorus (2.5-4.5) mg/dL Iron (65-175) ug/dL TIBC (228-460) ug/dL Ferritin (22.0-322.0) ng/mL Total Bilirubin (0.2-1.3) mg/dL AST (17-59) U/L ALT (21-72) U/L Alkaline Phosphatase (38-126) U/L Total Protein (6.3-8.2) g/dL Albumin (3.5-5.0) g/dL PTH Intact (14.0-72.0) pg/mL Hep Bs Antibody (Non-Reactive) 03/18/18 03/18/18 03/18/18 Range/Units 02:15 02:24 05:19 WBC 13.7 H (3.8-10.6) k/uL RBC 2.83 L (4.30-5.90) m/uL Hgb 9.6 L (13.0-17.5) gm/dL Hct 29.7 L (39.0-53.0) % MCV 105.0 H D (80.0-100.0) fL RDW 23.5 H (11.5-15.5) % Plt Count 62 L (150-450) k/uL Neutrophils # (Manual) 11.90 H (1.3-7.7) k/uL Metamyelocytes # (Man) 0.14 H (0) k/uL Myelocytes # (Manual) (0) k/uL Nucleated RBCs 10 H (0-0) /100 WBC Sodium (137-145) mmol/L Potassium (3.5-5.1) mmol/L Carbon Dioxide (22-30) mmol/L BUN (9-20) mg/dL Creatinine (0.66-1.25) mg/dL Glucose (74-99) mg/dL POC Glucose (mg/dL) 42 L 114 H (75-99) mg/dL Plasma Lactic Acid Duong (0.7-2.0) mmol/L Calcium (8.4-10.2) mg/dL Phosphorus (2.5-4.5) mg/dL Iron (65-175) ug/dL TIBC (228-460) ug/dL Ferritin (22.0-322.0) ng/mL Total Bilirubin (0.2-1.3) mg/dL AST (17-59) U/L ALT (21-72) U/L Alkaline Phosphatase (38-126) U/L Total Protein (6.3-8.2) g/dL Albumin (3.5-5.0) g/dL PTH Intact (14.0-72.0) pg/mL Hep Bs Antibody (Non-Reactive) 03/18/18 03/18/18 03/18/18 Range/Units 05:19 07:00 08:33 WBC (3.8-10.6) k/uL RBC (4.30-5.90) m/uL Hgb (13.0-17.5) gm/dL Hct (39.0-53.0) % MCV (80.0-100.0) fL RDW (11.5-15.5) % Plt Count (150-450) k/uL Neutrophils # (Manual) (1.3-7.7) k/uL Metamyelocytes # (Man) (0) k/uL Myelocytes # (Manual) (0) k/uL Nucleated RBCs (0-0) /100 WBC Sodium 136 L (137-145) mmol/L Potassium (3.5-5.1) mmol/L Carbon Dioxide 15 L (22-30) mmol/L BUN 3 L (9-20) mg/dL Creatinine 2.19 H (0.66-1.25) mg/dL Glucose (74-99) mg/dL POC Glucose (mg/dL) 69 L 54 L (75-99) mg/dL Plasma Lactic Acid Duong (0.7-2.0) mmol/L Calcium 7.6 L (8.4-10.2) mg/dL Phosphorus 2.2 L (2.5-4.5) mg/dL Iron (65-175) ug/dL TIBC (228-460) ug/dL Ferritin (22.0-322.0) ng/mL Total Bilirubin 2.7 H (0.2-1.3) mg/dL AST 2916 H (17-59) U/L ALT 494 H (21-72) U/L Alkaline Phosphatase 390 H (38-126) U/L Total Protein 4.6 L (6.3-8.2) g/dL Albumin 1.6 L (3.5-5.0) g/dL PTH Intact (14.0-72.0) pg/mL Hep Bs Antibody (Non-Reactive) 03/18/18 Range/Units 09:11 WBC (3.8-10.6) k/uL RBC (4.30-5.90) m/uL Hgb (13.0-17.5) gm/dL Hct (39.0-53.0) % MCV (80.0-100.0) fL RDW (11.5-15.5) % Plt Count (150-450) k/uL Neutrophils # (Manual) (1.3-7.7) k/uL Metamyelocytes # (Man) (0) k/uL Myelocytes # (Manual) (0) k/uL Nucleated RBCs (0-0) /100 WBC Sodium (137-145) mmol/L Potassium (3.5-5.1) mmol/L Carbon Dioxide (22-30) mmol/L BUN (9-20) mg/dL Creatinine (0.66-1.25) mg/dL Glucose (74-99) mg/dL POC Glucose (mg/dL) 58 L (75-99) mg/dL Plasma Lactic Acid Duong (0.7-2.0) mmol/L Calcium (8.4-10.2) mg/dL Phosphorus (2.5-4.5) mg/dL Iron (65-175) ug/dL TIBC (228-460) ug/dL Ferritin (22.0-322.0) ng/mL Total Bilirubin (0.2-1.3) mg/dL AST (17-59) U/L ALT (21-72) U/L Alkaline Phosphatase (38-126) U/L Total Protein (6.3-8.2) g/dL Albumin (3.5-5.0) g/dL PTH Intact (14.0-72.0) pg/mL Hep Bs Antibody (Non-Reactive) Microbiology - Last 24 Hours (Table) 11/28/18 13:10 Gram Stain - Preliminary Buttock Wound Culture - Preliminary 03/17/18 13:00 Gram Stain - Preliminary Knee - Left Wound Culture - Preliminary 03/16/18 21:16 Blood Culture - Preliminary Blood No Growth after 24 hours Assessment and Plan Plan: Assessment: 1. End-stage renal disease maintained on hemodialysis on a Thursday schedule. 2. Hypokalemia from poor oral intake and low potassium dialysate. Status post replacement. 3. Hypotension with concern for underlying sepsis. Currently on low dose Levophed. 4. Hypoglycemia status post dextrose. 5. Diabetes mellitus. 6. Volume overload. 7. Status post left [id number] amputation. 8. Anemia of chronic kidney disease. Iron replete. Maintained on Aranesp. 9. Chronic kidney disease mineral bone disease. Phosphorus 2.2 this morning. PTH 86. 10. 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 Gen. surgery consulted for possible debridement. 11. Metabolic acidosis secondary to chronic kidney disease. Expect improvement postdialysis. Plan: Currently seen while undergoing hemodialysis. Will try for 2 L ultrafiltration. Maintain midodrine. Wean Levophed. Follow-up cultures.
[2018-03-18] MEDS: DEXTROSE 10% IN WATER 500 ML in EMPTY BAG 1 BAG IV SCH (10:01)
--- NOTE | 2018-03-18 10:03 | P.PN ---
Subjective Progress Note Date: 03/18/18 Principal diagnosis: Altered mental status, hypotension, lactic acidosis, rule out sepsis This is a 42-year-old patient with past medical history of end-stage renal disease on hemodialysis, diabetes mellitus type 2, diabetic retinopathy, hypertension, hyperlipidemia, left eye cataract, recent left AKA related to left lower leg diabetic ulcers, infection, and osteomyelitis, who presented to the hospital per EMS on 03/16/2018 at 11:00 in the morning for evaluation of hypotension, lethargy, and hypoglycemia. Patient did his usual dialysis treatment, and angiogram reportedly runs a low blood pressure, usually with SBP in the 80s, this time blood pressure was noted to be around 70. He denied any fever or chills, no difficulty breathing, no chest pain no nausea, no vomiting, no diarrhea. Patient does have a chronic wound on his left stump. Lab work did not show any evidence of leukocytosis, the CBC is 6.1, hemoglobin is 7.2 oh evidence of bleeding, troponin was 0.014, serum sodium was 133, potassium is 3.1 , chloride is 96, BUN is 4, creatinine is 2.03. His serum glucose was 36, she was treated with 1 amp of D50 in the emergency department, plasma lactic acid was 5.7, LFTs were elevated, the AST was 1046, ALT was 231, alkaline phosphatase was 415, total CK was 230, lipase was 29, albumin was 1.6. Chest x- ray showed small basilar pleural effusions and mild atelectasis. EKG showed normal sinus rhythm with nonspecific ST abnormality. Brain CT showed no acute intracranial process, showed right mastoid sinus and middle ear cavity opacification. CT of abdomen and pelvis showed cardiomegaly with pleural effusions and basilar consolidation and atelectasis. Moderate amount of ascites fluid, large gallbladder suggestive of some gallbladder dysfunction, was no evidence of free air, there was extensive vessel calcification. No retroperitoneal adenopathy, no bony destructive process. Patient given a IV fluid bolus of 0.9 normal saline, and his maintenance IV fluids at 75 ML per hour with subsequent improvement of his blood pressure, he was started on Midrin at 5 mg 3 times daily. Started on Zosyn and vancomycin for empiric antibiotic coverage, blood cultures and urine cultures were collected and sent. He was started on small dose of Levofed. Currently his blood pressure is 93/ 53, patient is afebrile, pulse ox on 2 L per nasal cannula is 98%, remains on small dose of Levophed, currently at 1 jasvir per minute. Patient has a draining wound on his left stump, he has a stage III on his coccyx present on admission, with yellow slough off in the wound bed. ID service has been consult, surgery has been consulted for left stump wound. On 03/18/2018 patient seen in follow-up in the intensive care unit, he is somnolent, but easily arousable to verbal stimuli, more conversant on today's exam. Denies any acute distress, yesterday we increased the patient's Midrin to 10 mg 3 times a day. He remains on vasopressor support, Levothroid is currently infusing at a rate of 3 mics per minute, maintenance IV fluid is 0.9 normal saline at a rate of 20 ML per hour. Last eye patient did have her hemodialysis treatment, and apparently patient was very hypotensive, and levo fed be increased to 8 mics per minute, and patient could not finish a whole treatment. Cultures remain negative thus far, chest x-ray shows mild changes of congestive heart failure. Denies any shortness of breath or chest pain, room air pulse ox is 96%, he is afebrile, today's lab work shows WBC of 13.7, hemoglobin is 9.6, sodium is 136, potassium is 3.6, CO2 is 15, BUN history and creatinine is 2.19. Liver enzymes are trending up, total bili is 2.7, AST is 2916, ALT is 494, alkaline phosphatase is 390. Patient is to have frequent episodes of hypoglycemia, and requiring treatment with 50% dextrose. Appetite remains very poor. We will place the patient on 10% dextrose at a rate of 20 ML per hour. D service was consulted local wound care was recommended to the sacral wound with Santyl and moist dressing, and left AKA stump to be Dry. Antibiotic coverage includes Zosyn and vancomycin. No surgery has been consulted for evaluation and debridement of the wound and deep cultures. Nephrology is following, and patient will have another hemodialysis treatment today. Objective - Vital Signs Vital signs: Vital Signs Temp 97.8 F 03/18/18 09:00 Pulse 90 03/18/18 09:00 Resp 17 03/18/18 09:00 BP 82/69 03/18/18 09:00 Pulse Ox 97 03/18/18 09:00 Intake & Output 03/17/18 03/18/18 03/18/18 18:59 06:59 18:59 Intake Total 329.375 619.678 Output Total 0 Balance 329.375 619.678 Weight 70 kg Intake: IV 305 260 Sodium Chloride 0.9% 1, 225 000 ml @ 75 mls/hr IV . [id number] STA Rx#:[id number] Sodium Chloride 0.9% 500 80 260 ml 500 ml @ 20 mls/hr IV .Q24H KHADAR Rx#:[id number] Intake, IV Titration 24.375 359.678 Amount Norepinephrine 4 mg In 24.375 209.678 Sodium Chloride 0.9% 250 ml @ Titrate IV .Q0M KHADAR Rx#:[id number] Piperacillin-Tazobactam 3 100 .375 gm In Sodium Chloride 0.9% 100 ml @ 25 mls/hr IVPB Q12HR KHADAR Rx #:[id number] Sodium Chloride 0.9% 500 50 ml 500 ml @ 20 mls/hr IV .Q24H KHADAR Rx#:[id number] Output: Urine 0 Other: # Bowel Movements 1 - Exam GENERAL EXAM: Pleasant, 42-year-old white male, somnolent, but easily arousable to verbal stimuli comfortable in no apparent distress. HEAD: Normocephalic/atraumatic. EYES: Normal reaction of pupils, equal size. Conjunctiva pink, sclera white. NOSE: Clear with pink turbinates. THROAT: No erythema or exudates. NECK: No masses, no JVD, no thyroid enlargement, no adenopathy. CHEST: No chest wall deformity. Symmetrical expansion. Right upper chest Benito cath for hemodialysis LUNGS: Equal air entry with no crackles, wheeze, rhonchi or dullness. Diminished breath sounds at the bases CVS: Regular rate and rhythm, normal S1 and S2, no gallops, no murmurs, no rubs ABDOMEN: Soft, nontender. No hepatosplenomegaly, normal bowel sounds, no guarding or rigidity. EXTREMITIES: No clubbing, no edema, no cyanosis, 1+ pedal pulse in the right lower extremity, left AKA stump wound, draining, and there is yellow slough in the wound bed. Stage III on coccyx with slough in the wound bed MUSCULOSKELETAL: Muscle strength and tone normal. SPINE: No scoliosis or deformity SKIN: No rashes CENTRAL NERVOUS SYSTEM: Alert and oriented -2. No focal deficits, tone is normal in all 4 extremities. - Labs CBC & Chem 7: 03/18/18 05:19 03/18/18 05:19 Labs: Abnormal Lab Results - Last 24 Hours (Table) 03/16/18 03/17/18 03/17/18 Range/Units 12:16 09:20 09:20 WBC (3.8-10.6) k/uL RBC 2.83 L (4.30-5.90) m/uL Hgb 9.7 L D (13.0-17.5) gm/dL Hct 27.9 L (39.0-53.0) % MCV (80.0-100.0) fL RDW 22.1 H (11.5-15.5) % Plt Count 85 L D 50 L (150-450) k/uL Neutrophils # (Manual) (1.3-7.7) k/uL Metamyelocytes # (Man) (0) k/uL Myelocytes # (Manual) 0.09 H (0) k/uL Nucleated RBCs 6 H (0-0) /100 WBC Sodium 135 L (137-145) mmol/L Potassium 3.0 L (3.5-5.1) mmol/L Carbon Dioxide 18 L (22-30) mmol/L BUN 4 L (9-20) mg/dL Creatinine 2.57 H (0.66-1.25) mg/dL Glucose 100 H (74-99) mg/dL POC Glucose (mg/dL) (75-99) mg/dL Plasma Lactic Acid Duong (0.7-2.0) mmol/L Calcium 7.4 L (8.4-10.2) mg/dL Phosphorus (2.5-4.5) mg/dL Iron (65-175) ug/dL TIBC (228-460) ug/dL Ferritin (22.0-322.0) ng/mL Total Bilirubin 2.5 H (0.2-1.3) mg/dL AST 1466 H (17-59) U/L ALT 303 H (21-72) U/L Alkaline Phosphatase 388 H (38-126) U/L Total Protein 4.4 L (6.3-8.2) g/dL Albumin 1.6 L (3.5-5.0) g/dL PTH Intact (14.0-72.0) pg/mL Hep Bs Antibody (Non-Reactive) 03/17/18 03/17/18 03/17/18 Range/Units 11:20 11:20 11:20 WBC (3.8-10.6) k/uL RBC (4.30-5.90) m/uL Hgb (13.0-17.5) gm/dL Hct (39.0-53.0) % MCV (80.0-100.0) fL RDW (11.5-15.5) % Plt Count (150-450) k/uL Neutrophils # (Manual) (1.3-7.7) k/uL Metamyelocytes # (Man) (0) k/uL Myelocytes # (Manual) (0) k/uL Nucleated RBCs (0-0) /100 WBC Sodium (137-145) mmol/L Potassium 2.7 L* (3.5-5.1) mmol/L Carbon Dioxide 18 L (22-30) mmol/L BUN 4 L (9-20) mg/dL Creatinine 2.70 H (0.66-1.25) mg/dL Glucose (74-99) mg/dL POC Glucose (mg/dL) (75-99) mg/dL Plasma Lactic Acid Duong 8.8 H* (0.7-2.0) mmol/L Calcium 7.4 L (8.4-10.2) mg/dL Phosphorus 2.1 L (2.5-4.5) mg/dL Iron 36 L (65-175) ug/dL TIBC 91 L (228-460) ug/dL Ferritin >09694.0 H (22.0-322.0) ng/mL Total Bilirubin 2.4 H (0.2-1.3) mg/dL AST 1420 H (17-59) U/L ALT 309 H (21-72) U/L Alkaline Phosphatase 399 H (38-126) U/L Total Protein 4.2 L (6.3-8.2) g/dL Albumin 1.5 L (3.5-5.0) g/dL PTH Intact 85.9 H (14.0-72.0) pg/mL Hep Bs Antibody (Non-Reactive) 03/17/18 03/17/18 03/17/18 Range/Units 15:37 15:37 17:44 WBC (3.8-10.6) k/uL RBC (4.30-5.90) m/uL Hgb (13.0-17.5) gm/dL Hct (39.0-53.0) % MCV (80.0-100.0) fL RDW (11.5-15.5) % Plt Count (150-450) k/uL Neutrophils # (Manual) (1.3-7.7) k/uL Metamyelocytes # (Man) (0) k/uL Myelocytes # (Manual) (0) k/uL Nucleated RBCs (0-0) /100 WBC Sodium (137-145) mmol/L Potassium (3.5-5.1) mmol/L Carbon Dioxide (22-30) mmol/L BUN (9-20) mg/dL Creatinine (0.66-1.25) mg/dL Glucose (74-99) mg/dL POC Glucose (mg/dL) 47 L (75-99) mg/dL Plasma Lactic Acid Duong 9.5 H* (0.7-2.0) mmol/L Calcium (8.4-10.2) mg/dL Phosphorus (2.5-4.5) mg/dL Iron (65-175) ug/dL TIBC (228-460) ug/dL Ferritin (22.0-322.0) ng/mL Total Bilirubin (0.2-1.3) mg/dL AST (17-59) U/L ALT (21-72) U/L Alkaline Phosphatase (38-126) U/L Total Protein (6.3-8.2) g/dL Albumin (3.5-5.0) g/dL PTH Intact (14.0-72.0) pg/mL Hep Bs Antibody Reactive H (Non-Reactive) 03/17/18 03/17/18 03/17/18 Range/Units 17:45 18:07 18:08 WBC (3.8-10.6) k/uL RBC (4.30-5.90) m/uL Hgb (13.0-17.5) gm/dL Hct (39.0-53.0) % MCV (80.0-100.0) fL RDW (11.5-15.5) % Plt Count (150-450) k/uL Neutrophils # (Manual) (1.3-7.7) k/uL Metamyelocytes # (Man) (0) k/uL Myelocytes # (Manual) (0) k/uL Nucleated RBCs (0-0) /100 WBC Sodium (137-145) mmol/L Potassium (3.5-5.1) mmol/L Carbon Dioxide (22-30) mmol/L BUN (9-20) mg/dL Creatinine (0.66-1.25) mg/dL Glucose (74-99) mg/dL POC Glucose (mg/dL) 52 L 40 L 70 L (75-99) mg/dL Plasma Lactic Acid Duong (0.7-2.0) mmol/L Calcium (8.4-10.2) mg/dL Phosphorus (2.5-4.5) mg/dL Iron (65-175) ug/dL TIBC (228-460) ug/dL Ferritin (22.0-322.0) ng/mL Total Bilirubin (0.2-1.3) mg/dL AST (17-59) U/L ALT (21-72) U/L Alkaline Phosphatase (38-126) U/L Total Protein (6.3-8.2) g/dL Albumin (3.5-5.0) g/dL PTH Intact (14.0-72.0) pg/mL Hep Bs Antibody (Non-Reactive) 03/17/18 03/17/18 03/18/18 Range/Units 19:07 20:32 01:45 WBC (3.8-10.6) k/uL RBC (4.30-5.90) m/uL Hgb (13.0-17.5) gm/dL Hct (39.0-53.0) % MCV (80.0-100.0) fL RDW (11.5-15.5) % Plt Count (150-450) k/uL Neutrophils # (Manual) (1.3-7.7) k/uL Metamyelocytes # (Man) (0) k/uL Myelocytes # (Manual) (0) k/uL Nucleated RBCs (0-0) /100 WBC Sodium (137-145) mmol/L Potassium (3.5-5.1) mmol/L Carbon Dioxide (22-30) mmol/L BUN (9-20) mg/dL Creatinine (0.66-1.25) mg/dL Glucose (74-99) mg/dL POC Glucose (mg/dL) 121 H 113 H 45 L (75-99) mg/dL Plasma Lactic Acid Duong (0.7-2.0) mmol/L Calcium (8.4-10.2) mg/dL Phosphorus (2.5-4.5) mg/dL Iron (65-175) ug/dL TIBC (228-460) ug/dL Ferritin (22.0-322.0) ng/mL Total Bilirubin (0.2-1.3) mg/dL AST (17-59) U/L ALT (21-72) U/L Alkaline Phosphatase (38-126) U/L Total Protein (6.3-8.2) g/dL Albumin (3.5-5.0) g/dL PTH Intact (14.0-72.0) pg/mL Hep Bs Antibody (Non-Reactive) 03/18/18 03/18/18 03/18/18 Range/Units 02:15 02:24 05:19 WBC 13.7 H (3.8-10.6) k/uL RBC 2.83 L (4.30-5.90) m/uL Hgb 9.6 L (13.0-17.5) gm/dL Hct 29.7 L (39.0-53.0) % MCV 105.0 H D (80.0-100.0) fL RDW 23.5 H (11.5-15.5) % Plt Count 62 L (150-450) k/uL Neutrophils # (Manual) 11.90 H (1.3-7.7) k/uL Metamyelocytes # (Man) 0.14 H (0) k/uL Myelocytes # (Manual) (0) k/uL Nucleated RBCs 10 H (0-0) /100 WBC Sodium (137-145) mmol/L Potassium (3.5-5.1) mmol/L Carbon Dioxide (22-30) mmol/L BUN (9-20) mg/dL Creatinine (0.66-1.25) mg/dL Glucose (74-99) mg/dL POC Glucose (mg/dL) 42 L 114 H (75-99) mg/dL Plasma Lactic Acid Duong (0.7-2.0) mmol/L Calcium (8.4-10.2) mg/dL Phosphorus (2.5-4.5) mg/dL Iron (65-175) ug/dL TIBC (228-460) ug/dL Ferritin (22.0-322.0) ng/mL Total Bilirubin (0.2-1.3) mg/dL AST (17-59) U/L ALT (21-72) U/L Alkaline Phosphatase (38-126) U/L Total Protein (6.3-8.2) g/dL Albumin (3.5-5.0) g/dL PTH Intact (14.0-72.0) pg/mL Hep Bs Antibody (Non-Reactive) 03/18/18 03/18/18 03/18/18 Range/Units 05:19 07:00 08:33 WBC (3.8-10.6) k/uL RBC (4.30-5.90) m/uL Hgb (13.0-17.5) gm/dL Hct (39.0-53.0) % MCV (80.0-100.0) fL RDW (11.5-15.5) % Plt Count (150-450) k/uL Neutrophils # (Manual) (1.3-7.7) k/uL Metamyelocytes # (Man) (0) k/uL Myelocytes # (Manual) (0) k/uL Nucleated RBCs (0-0) /100 WBC Sodium 136 L (137-145) mmol/L Potassium (3.5-5.1) mmol/L Carbon Dioxide 15 L (22-30) mmol/L BUN 3 L (9-20) mg/dL Creatinine 2.19 H (0.66-1.25) mg/dL Glucose (74-99) mg/dL POC Glucose (mg/dL) 69 L 54 L (75-99) mg/dL Plasma Lactic Acid Duong (0.7-2.0) mmol/L Calcium 7.6 L (8.4-10.2) mg/dL Phosphorus 2.2 L (2.5-4.5) mg/dL Iron (65-175) ug/dL TIBC (228-460) ug/dL Ferritin (22.0-322.0) ng/mL Total Bilirubin 2.7 H (0.2-1.3) mg/dL AST 2916 H (17-59) U/L ALT 494 H (21-72) U/L Alkaline Phosphatase 390 H (38-126) U/L Total Protein 4.6 L (6.3-8.2) g/dL Albumin 1.6 L (3.5-5.0) g/dL PTH Intact (14.0-72.0) pg/mL Hep Bs Antibody (Non-Reactive) 03/18/18 Range/Units 09:11 WBC (3.8-10.6) k/uL RBC (4.30-5.90) m/uL Hgb (13.0-17.5) gm/dL Hct (39.0-53.0) % MCV (80.0-100.0) fL RDW (11.5-15.5) % Plt Count (150-450) k/uL Neutrophils # (Manual) (1.3-7.7) k/uL Metamyelocytes # (Man) (0) k/uL Myelocytes # (Manual) (0) k/uL Nucleated RBCs (0-0) /100 WBC Sodium (137-145) mmol/L Potassium (3.5-5.1) mmol/L Carbon Dioxide (22-30) mmol/L BUN (9-20) mg/dL Creatinine (0.66-1.25) mg/dL Glucose (74-99) mg/dL POC Glucose (mg/dL) 58 L (75-99) mg/dL Plasma Lactic Acid Duong (0.7-2.0) mmol/L Calcium (8.4-10.2) mg/dL Phosphorus (2.5-4.5) mg/dL Iron (65-175) ug/dL TIBC (228-460) ug/dL Ferritin (22.0-322.0) ng/mL Total Bilirubin (0.2-1.3) mg/dL AST (17-59) U/L ALT (21-72) U/L Alkaline Phosphatase (38-126) U/L Total Protein (6.3-8.2) g/dL Albumin (3.5-5.0) g/dL PTH Intact (14.0-72.0) pg/mL Hep Bs Antibody (Non-Reactive) Microbiology - Last 24 Hours (Table) 03/17/18 13:10 Gram Stain - Preliminary Buttock Wound Culture - Preliminary 03/17/18 13:00 Gram Stain - Preliminary Knee - Left Wound Culture - Preliminary 03/16/18 21:16 Blood Culture - Preliminary Blood No Growth after 24 hours Assessment and Plan Plan: Assessment: #1. Altered mental status, hypotension, lactic acidosis, rule out sepsis #2. Hypoglycemia #3. Draining wound on the left stump, present on admission #4. Decubitus ulcer on coccyx, stage III, with slough in the wound bed, present on admission #5. Elevated transaminases #6. Bilateral pleural effusions #7. End-stage renal disease, on hemodialysis, patient had previously been on peritoneal dialysis, however switched to hemodialysis in view of malfunctioning peritoneal catheter #8. Diabetes mellitus type 2, with diabetic retinopathy #9. Hypertention, hyperlipidemia #10. History of left above-knee amputation in January 2018, for osteomyelitis of left lower extremity #11. Chronic macrocytic anemia #12. History of migraines Plan: Continue with current medical treatment, ID service is following, and antibiotics per ID service recommendations, cultures remain negative thus far. We'll switch maintenance IV fluid to 10% dextrose at a rate of 20 ML per hour for persistent hypoglycemia. Current oral intake, maintain aspiration precautions, today's chest x-ray has been reviewed by Dr. Marsh, and showed changes of mild fluid overload. Nephrology is following, and patient will limit the hemodialysis treatment today, still remains vasopressor dependent, and levo fed can be increased to complete the hemodialysis. Continue the Midrin at the current dose. Random serum cortisol was noted. Patient will remain in the intensive care, long-term prognosis is very guarded. We'll continue to follow I performed a history & physical examination of the patient and discussed their management with my nurse practitioner, Neha Franklin. I reviewed the nurse practitioner's note and agree with the documented findings and plan of care. Lung sounds are positive for diminished at the bases. The findings and the impression was discussed with the patient. I attest to the documentation by the nurse practitioner. Time with Patient: Greater than 30
[2018-03-18 10:18] LABS: Glucose,Whole Blood 169 mg/dL (75-99)
[2018-03-18 12:18] LABS: Glucose,Whole Blood 130 mg/dL (75-99)
[2018-03-18 12:18] LABS: Glucose,Whole Blood 31 mg/dL (75-99)
[2018-03-18] MEDS: COLLAGENASE 250 UNIT/GM OINTMENT 30 GM TUBE TOPICAL SCH (12:47)
[2018-03-18] MEDS: SODIUM CHLORIDE 0.9% 500 ML 500 ML IV SCH (17:34)
[2018-03-18 17:40] LABS: Glucose,Whole Blood <20 mg/dL (75-99)
[2018-03-18 17:40] LABS: Glucose,Whole Blood 59 mg/dL (75-99)
[2018-03-18 17:40] LABS: Glucose,Whole Blood 66 mg/dL (75-99)
--- NOTE | 2018-03-18 18:20 | P.GSCN ---
History of Present Illness Consult date: 03/18/18 Reason for Consult: Sacral decubitus ulcer History of present illness: Patient is known to our service. The patient has had progressive decline in his health recently. He was found to be hypotensive during outpatient dialysis. He was admitted for that reason. The patient's sacral decubitus ulcer that was previously debrided has enlarged significantly. Patient is now on IV pressors. CAT scan performed during admission also showed some fluid in the abdomen likely related to his previous peritoneal dialysis fluid and also a slightly enlarged gallbladder. No abdominal pain. 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 Past Psychological History: No Psychological Hx Reported Smoking Status: Never smoker Past Alcohol Use History: None Reported, Occasional Past Drug Use History: None Reported - Past Family History Mother Family Medical History: No Reported History Additional Family Medical History / Comment(s): Mother of dementia at the age of 71 yrs. Father Family Medical History: No Reported History Additional Family Medical History / Comment(s): Father is healthy Medications and Allergies Home Medications Medication Instructions Recorded Confirmed Type Atorvastatin [Lipitor] 40 mg PO HS 07/28/16 03/16/18 History Divalproex [Depakote] 250 mg PO BID@0600,1800 07/28/16 03/16/18 History Famotidine 20 mg PO DAILY@0600 07/28/16 03/16/18 History Omeprazole [PriLOSEC] 20 mg PO AC-BRKFST 07/28/16 03/16/18 History Sertraline [Zoloft] 50 mg PO HS 07/28/16 03/16/18 History Carvedilol [Coreg] 3.125 mg PO BID 03/16/18 03/16/18 History Allergies Allergy/AdvReac Type Severity Reaction Status Date / Time pistachio nut Allergy throat Verified 03/16/18 12:30 swelling Surgical - Exam Vital Signs Temp Pulse Resp BP Pulse Ox 98.1 F 78 18 90/50 98 03/16/18 11:41 03/16/18 11:41 03/16/18 11:41 03/16/18 11:41 03/16/18 11:41 Physical exam: General: Well-developed, well-nourished HEENT: Normocephalic, sclerae nonicteric Abdomen: Edematous abdominal wall, palpable liver margin, nontender Extremities: Significant edema diffusely, left above-knee amputation with wound laterally, sacrum with large area of skin necrosis unstageable at this time, some tunneling from the previous open wound beneath the necrotic skin and subcutaneous fat, nontender Neuro: Lethargic Results - Labs 03/18/18 05:19 03/18/18 05:19 Abnormal Lab Results - Last 24 Hours (Table) 03/17/18 03/17/18 03/17/18 Range/Units 11:20 15:37 19:07 WBC (3.8-10.6) k/uL RBC (4.30-5.90) m/uL Hgb (13.0-17.5) gm/dL Hct (39.0-53.0) % MCV (80.0-100.0) fL RDW (11.5-15.5) % Plt Count (150-450) k/uL Neutrophils # (Manual) (1.3-7.7) k/uL Metamyelocytes # (Man) (0) k/uL Nucleated RBCs (0-0) /100 WBC Sodium (137-145) mmol/L Carbon Dioxide (22-30) mmol/L BUN (9-20) mg/dL Creatinine (0.66-1.25) mg/dL POC Glucose (mg/dL) 121 H (75-99) mg/dL Calcium (8.4-10.2) mg/dL Phosphorus (2.5-4.5) mg/dL Iron 36 L (65-175) ug/dL TIBC 91 L (228-460) ug/dL Ferritin >07466.0 H (22.0-322.0) ng/mL Total Bilirubin (0.2-1.3) mg/dL AST (17-59) U/L ALT (21-72) U/L Alkaline Phosphatase (38-126) U/L Total Protein (6.3-8.2) g/dL Albumin (3.5-5.0) g/dL PTH Intact 85.9 H (14.0-72.0) pg/mL Hep Bs Antibody Reactive H (Non-Reactive) 03/17/18 03/18/18 03/18/18 Range/Units 20:32 01:45 02:15 WBC (3.8-10.6) k/uL RBC (4.30-5.90) m/uL Hgb (13.0-17.5) gm/dL Hct (39.0-53.0) % MCV (80.0-100.0) fL RDW (11.5-15.5) % Plt Count (150-450) k/uL Neutrophils # (Manual) (1.3-7.7) k/uL Metamyelocytes # (Man) (0) k/uL Nucleated RBCs (0-0) /100 WBC Sodium (137-145) mmol/L Carbon Dioxide (22-30) mmol/L BUN (9-20) mg/dL Creatinine (0.66-1.25) mg/dL POC Glucose (mg/dL) 113 H 45 L 42 L (75-99) mg/dL Calcium (8.4-10.2) mg/dL Phosphorus (2.5-4.5) mg/dL Iron (65-175) ug/dL TIBC (228-460) ug/dL Ferritin (22.0-322.0) ng/mL Total Bilirubin (0.2-1.3) mg/dL AST (17-59) U/L ALT (21-72) U/L Alkaline Phosphatase (38-126) U/L Total Protein (6.3-8.2) g/dL Albumin (3.5-5.0) g/dL PTH Intact (14.0-72.0) pg/mL Hep Bs Antibody (Non-Reactive) 03/18/18 03/18/18 03/18/18 Range/Units 02:24 05:19 05:19 WBC 13.7 H (3.8-10.6) k/uL RBC 2.83 L (4.30-5.90) m/uL Hgb 9.6 L (13.0-17.5) gm/dL Hct 29.7 L (39.0-53.0) % MCV 105.0 H D (80.0-100.0) fL RDW 23.5 H (11.5-15.5) % Plt Count 62 L (150-450) k/uL Neutrophils # (Manual) 11.90 H (1.3-7.7) k/uL Metamyelocytes # (Man) 0.14 H (0) k/uL Nucleated RBCs 10 H (0-0) /100 WBC Sodium 136 L (137-145) mmol/L Carbon Dioxide 15 L (22-30) mmol/L BUN 3 L (9-20) mg/dL Creatinine 2.19 H (0.66-1.25) mg/dL POC Glucose (mg/dL) 114 H (75-99) mg/dL Calcium 7.6 L (8.4-10.2) mg/dL Phosphorus 2.2 L (2.5-4.5) mg/dL Iron (65-175) ug/dL TIBC (228-460) ug/dL Ferritin (22.0-322.0) ng/mL Total Bilirubin 2.7 H (0.2-1.3) mg/dL AST 2916 H (17-59) U/L ALT 494 H (21-72) U/L Alkaline Phosphatase 390 H (38-126) U/L Total Protein 4.6 L (6.3-8.2) g/dL Albumin 1.6 L (3.5-5.0) g/dL PTH Intact (14.0-72.0) pg/mL Hep Bs Antibody (Non-Reactive) 03/18/18 03/18/18 03/18/18 Range/Units 07:00 08:33 09:11 WBC (3.8-10.6) k/uL RBC (4.30-5.90) m/uL Hgb (13.0-17.5) gm/dL Hct (39.0-53.0) % MCV (80.0-100.0) fL RDW (11.5-15.5) % Plt Count (150-450) k/uL Neutrophils # (Manual) (1.3-7.7) k/uL Metamyelocytes # (Man) (0) k/uL Nucleated RBCs (0-0) /100 WBC Sodium (137-145) mmol/L Carbon Dioxide (22-30) mmol/L BUN (9-20) mg/dL Creatinine (0.66-1.25) mg/dL POC Glucose (mg/dL) 69 L 54 L 58 L (75-99) mg/dL Calcium (8.4-10.2) mg/dL Phosphorus (2.5-4.5) mg/dL Iron (65-175) ug/dL TIBC (228-460) ug/dL Ferritin (22.0-322.0) ng/mL Total Bilirubin (0.2-1.3) mg/dL AST (17-59) U/L ALT (21-72) U/L Alkaline Phosphatase (38-126) U/L Total Protein (6.3-8.2) g/dL Albumin (3.5-5.0) g/dL PTH Intact (14.0-72.0) pg/mL Hep Bs Antibody (Non-Reactive) 03/18/18 03/18/18 03/18/18 Range/Units 09:44 11:58 11:59 WBC (3.8-10.6) k/uL RBC (4.30-5.90) m/uL Hgb (13.0-17.5) gm/dL Hct (39.0-53.0) % MCV (80.0-100.0) fL RDW (11.5-15.5) % Plt Count (150-450) k/uL Neutrophils # (Manual) (1.3-7.7) k/uL Metamyelocytes # (Man) (0) k/uL Nucleated RBCs (0-0) /100 WBC Sodium (137-145) mmol/L Carbon Dioxide (22-30) mmol/L BUN (9-20) mg/dL Creatinine (0.66-1.25) mg/dL POC Glucose (mg/dL) 169 H 31 L 130 H (75-99) mg/dL Calcium (8.4-10.2) mg/dL Phosphorus (2.5-4.5) mg/dL Iron (65-175) ug/dL TIBC (228-460) ug/dL Ferritin (22.0-322.0) ng/mL Total Bilirubin (0.2-1.3) mg/dL AST (17-59) U/L ALT (21-72) U/L Alkaline Phosphatase (38-126) U/L Total Protein (6.3-8.2) g/dL Albumin (3.5-5.0) g/dL PTH Intact (14.0-72.0) pg/mL Hep Bs Antibody (Non-Reactive) 03/18/18 03/18/18 03/18/18 Range/Units 17:16 17:18 17:20 WBC (3.8-10.6) k/uL RBC (4.30-5.90) m/uL Hgb (13.0-17.5) gm/dL Hct (39.0-53.0) % MCV (80.0-100.0) fL RDW (11.5-15.5) % Plt Count (150-450) k/uL Neutrophils # (Manual) (1.3-7.7) k/uL Metamyelocytes # (Man) (0) k/uL Nucleated RBCs (0-0) /100 WBC Sodium (137-145) mmol/L Carbon Dioxide (22-30) mmol/L BUN (9-20) mg/dL Creatinine (0.66-1.25) mg/dL POC Glucose (mg/dL) 66 L <20 L 59 L (75-99) mg/dL Calcium (8.4-10.2) mg/dL Phosphorus (2.5-4.5) mg/dL Iron (65-175) ug/dL TIBC (228-460) ug/dL Ferritin (22.0-322.0) ng/mL Total Bilirubin (0.2-1.3) mg/dL AST (17-59) U/L ALT (21-72) U/L Alkaline Phosphatase (38-126) U/L Total Protein (6.3-8.2) g/dL Albumin (3.5-5.0) g/dL PTH Intact (14.0-72.0) pg/mL Hep Bs Antibody (Non-Reactive) Microbiology - Last Hours (Table) 03/17/18 13:00 Gram Stain - Preliminary Knee - Left Wound Culture - Preliminary Gram Neg Bacilli Sandra albicans 03/17/18 13:10 Gram Stain - Preliminary Buttock Wound Culture - Preliminary 03/16/18 21:16 Blood Culture - Preliminary Blood No Growth after 24 hours Diabetes panel 03/16/18 03/18/18 Range/Units 12:16 05:19 Sodium 136 L (137-145) mmol/L Potassium 3.6 (3.5-5.1) mmol/L Chloride 104 (98-107) mmol/L Carbon Dioxide 15 L (22-30) mmol/L BUN 3 L (9-20) mg/dL Creatinine 2.19 H (0.66-1.25) mg/dL Glucose 74 (74-99) mg/dL Hemoglobin A1c 4.6 (4.0-6.0) % Calcium 7.6 L (8.4-10.2) mg/dL AST 2916 H (17-59) U/L ALT 494 H (21-72) U/L Alkaline Phosphatase 390 H (38-126) U/L Total Protein 4.6 L (6.3-8.2) g/dL Albumin 1.6 L (3.5-5.0) g/dL Thyroid panel 03/17/18 Range/Units 15:37 TSH 4.290 (0.465-4.680) mIU/L Calcium panel 03/18/18 Range/Units 05:19 Calcium 7.6 L (8.4-10.2) mg/dL Phosphorus 2.2 L (2.5-4.5) mg/dL Albumin 1.6 L (3.5-5.0) g/dL Pituitary panel 03/17/18 03/18/18 Range/Units 15:37 05:19 Sodium 136 L (137-145) mmol/L Potassium 3.6 (3.5-5.1) mmol/L Chloride 104 (98-107) mmol/L Carbon Dioxide 15 L (22-30) mmol/L BUN 3 L (9-20) mg/dL Creatinine 2.19 H (0.66-1.25) mg/dL Glucose 74 (74-99) mg/dL Calcium 7.6 L (8.4-10.2) mg/dL TSH 4.290 (0.465-4.680) mIU/L Adrenal panel 03/18/18 Range/Units 05:19 Sodium 136 L (137-145) mmol/L Potassium 3.6 (3.5-5.1) mmol/L Chloride 104 (98-107) mmol/L Carbon Dioxide 15 L (22-30) mmol/L BUN 3 L (9-20) mg/dL Creatinine 2.19 H (0.66-1.25) mg/dL Glucose 74 (74-99) mg/dL Calcium 7.6 L (8.4-10.2) mg/dL Total Bilirubin 2.7 H (0.2-1.3) mg/dL AST 2916 H (17-59) U/L ALT 494 H (21-72) U/L Alkaline Phosphatase 390 H (38-126) U/L Total Protein 4.6 L (6.3-8.2) g/dL Albumin 1.6 L (3.5-5.0) g/dL Assessment and Plan (1) Sacral decubitus ulcer Narrative/Plan: Patient with recent admission at [facility]. At that time a stage III sacral decubitus ulcer was debrided. This wound has only enlarged further with further skin necrosis because of poor offloading and lack of activity by the patient. The patient may benefit from debridement of the sacral decubitus ulcer however his overall health is so poor that I'm concerned regarding his stability for surgical intervention. Continue IV antibiotics. Will discuss further with the patient's family regarding operative debridement. In terms of the patient's enlarged gallbladder we'll continue observation at this time. This does not appear to be a source of sepsis at this time. Current Visit: Yes Status: Acute Code(s): L89.159 - PRESSURE ULCER OF SACRAL REGION, UNSPECIFIED STAGE SNOMED Code(s): 879454491
[2018-03-18 18:24] LABS: Glucose,Whole Blood 107 mg/dL (75-99)
--- NOTE | 2018-03-18 18:35 | P.PN ---
Subjective Progress Note Date: 03/17/18 Progress note being dictated for Dr. Villalta. Interval history: This is a 42-year-old gentleman admitted in the ICU with hypotension, possible septic shock, left leg cellulitis, chronic end-stage renal disease and multiple other medical issues. Remains pressor dependent, currently on 2 mics of Levophed. Receiving hemodialysis today. CT of abdomen and pelvis suggestive of gallbladder dysfunction, abdominal ascites and TB bili , LFTs worsening. Potassium 2.7, magnesium 1.7, receiving supplements. Remains confused. Maintained on IV fluids of 0.9 at 75 MLS per hour. Elevated lactic acid 2 attributed to renal failure, dehydration and infection. Maintained on IV antibiotics.Sacral wound and AKA wound. Evaluated by both infectious disease and surgery for potential debridement. Unable to obtain review systems given patient's current clinical condition. Active Medications Hydrocodone Bitart/Acetaminophen (Beulah 5-325) 1 each PO Q6HR PRN PRN Reason: Pain Last Admin: 03/18/18 16:44 Dose: 1 each Alprazolam (Xanax) 0.25 mg PO TID PRN PRN Reason: Anxiety Atorvastatin Calcium (Lipitor) 40 mg PO HS [facility] Last Admin: 03/18/18 00:13 Dose: 40 mg Carvedilol (Coreg) 3.125 mg PO BID-W/MEALS [facility] Last Admin: 03/18/18 16:35 Dose: Not Given Collagenase (Santyl) 1 applic TOPICAL DAILY [facility] Last Admin: 03/18/18 12:47 Dose: 1 applic Darbepoetin Garth (Aranesp) 40 mcg SQ Q7D [facility] Last Admin: 03/17/18 14:51 Dose: 40 mcg Divalproex Sodium (Depakote) 250 mg PO BID@0600,1800 [facility] Last Admin: 03/18/18 18:16 Dose: 250 mg Famotidine (Pepcid) 20 mg PO DAILY@0600 [facility] Last Admin: 03/18/18 05:54 Dose: 20 mg Heparin Sodium (Porcine) (Heparin) 5,000 unit SQ Q8H [facility] Last Admin: 03/18/18 13:58 Dose: 5,000 unit Norepinephrine Bitartrate 4 mg (/ Sodium Chloride) 250 mls @ 0 mls/hr IV .Q0M [facility]; Protocol Last Titration: 03/18/18 16:30 Dose: 4 mcg/min, 15 mls/hr Piperacillin Sod/Tazobactam (Sod 3.375 gm/ Sodium Chloride) 100 mls @ 25 mls/ hr IVPB Q12HR [facility] Last Admin: 03/18/18 12:02 Dose: 25 mls/hr Sodium Chloride (Saline 0.9%) 500 mls @ 20 mls/hr IV .Q24H [facility] Last Admin: 03/18/18 17:34 Dose: 20 mls/hr Dextrose/Water 500 ml/ IV (Solution) 500 mls @ 20 mls/hr IV .Q24H [facility] Last Admin: 03/18/18 10:01 Dose: 20 mls/hr Midodrine (Proamatine) 10 mg PO AC-TID [facility] Last Admin: 03/18/18 18:16 Dose: 10 mg Miscellaneous Information (Pharmacy To Dose Iv Vancomycin) 1 each MISCELLANE DIRECTED PRN PRN Reason: Per Protocol Naloxone HCl (Narcan) 0.2 mg IV Q2M PRN PRN Reason: Opioid Reversal Naloxone HCl (Narcan) 0.2 mg IV Q2M PRN PRN Reason: Opioid Reversal Pantoprazole Sodium (Protonix) 40 mg PO AC-BRKFST [facility] Last Admin: 03/18/18 06:53 Dose: 40 mg Sertraline HCl (Zoloft) 50 mg PO HS [facility] Last Admin: 03/18/18 00:13 Dose: 50 mg Temazepam (Restoril) 15 mg PO HS PRN PRN Reason: Insomnia Objective - Vital Signs Vital signs: Vital Signs Temp 98.4 F 03/17/18 12:00 Pulse 88 03/17/18 15:00 Resp 14 03/17/18 15:00 BP 73/53 03/17/18 15:00 Pulse Ox 98 03/17/18 15:00 Intake & Output 03/16/18 03/17/18 03/17/18 18:59 06:59 18:59 Intake Total 2.93 Balance 2.93 Weight 68.039 kg Intake: Intake, IV Titration 2.93 Amount Norepinephrine 4 mg In 2.93 Sodium Chloride 0.9% 250 ml @ Titrate IV .Q0M [facility] Rx#:[id number] Blood Product 0 Rc As-1 Unit 0 [id number] Other: # Bowel Movements 1 - Exam PHYSICAL EXAM: VITAL SIGNS: As above GENERAL: Sitting up in bed, confused HEENT: Conjunctivae normal. eyes normal. Oral mucosa moist NECK: No JVD. No thyroid enlargement. No LNs. CARDIOVASCULAR: S1, S2 muffled. No murmur RESPIRATION: Breath sounds diminished in the bases. No rhonchi or crackles. ABDOMEN: Soft, distended, nontender, positive bowel sounds. No organomegaly, no guarding. LEGS: Left AKA stump with necrotic black edges without drainage, no redness Sacral wound, stage III sloughing, redness, without odor.. PSYCHIATRY: Alert and oriented -2, mood and affect normal. NERVOUS SYSTEM: Cranial N 2-12 grossly normal. Diffuse weakness No focal deficits. - Labs CBC & Chem 7: 03/18/18 05:19 03/18/18 05:19 Labs: Abnormal Lab Results - Last 24 Hours (Table) 03/16/18 03/16/18 03/16/18 Range/Units 12:16 12:16 20:20 RBC (4.30-5.90) m/uL Hgb (13.0-17.5) gm/dL Hct (39.0-53.0) % RDW (11.5-15.5) % Plt Count 85 L D (150-450) k/uL Myelocytes # (Manual) (0) k/uL Nucleated RBCs (0-0) /100 WBC Sodium (137-145) mmol/L Potassium (3.5-5.1) mmol/L Carbon Dioxide (22-30) mmol/L BUN (9-20) mg/dL Creatinine (0.66-1.25) mg/dL Glucose (74-99) mg/dL POC Glucose (mg/dL) 71 L (75-99) mg/dL Plasma Lactic Acid Duong (0.7-2.0) mmol/L Calcium (8.4-10.2) mg/dL Phosphorus (2.5-4.5) mg/dL Total Bilirubin (0.2-1.3) mg/dL AST (17-59) U/L ALT (21-72) U/L Alkaline Phosphatase (38-126) U/L Total Protein (6.3-8.2) g/dL Albumin (3.5-5.0) g/dL Crossmatch See Detail 11/03/16/18 03/16/18 Range/Units 20:58 21:16 21:35 RBC (4.30-5.90) m/uL Hgb (13.0-17.5) gm/dL Hct (39.0-53.0) % RDW (11.5-15.5) % Plt Count (150-450) k/uL Myelocytes # (Manual) (0) k/uL Nucleated RBCs (0-0) /100 WBC Sodium (137-145) mmol/L Potassium (3.5-5.1) mmol/L Carbon Dioxide (22-30) mmol/L BUN (9-20) mg/dL Creatinine (0.66-1.25) mg/dL Glucose (74-99) mg/dL POC Glucose (mg/dL) 72 L 130 H (75-99) mg/dL Plasma Lactic Acid Duong 5.7 H* (0.7-2.0) mmol/L Calcium (8.4-10.2) mg/dL Phosphorus (2.5-4.5) mg/dL Total Bilirubin (0.2-1.3) mg/dL AST (17-59) U/L ALT (21-72) U/L Alkaline Phosphatase (38-126) U/L Total Protein (6.3-8.2) g/dL Albumin (3.5-5.0) g/dL Crossmatch 03/17/18 03/17/18 03/17/18 Range/Units 01:16 03:12 07:02 RBC (4.30-5.90) m/uL Hgb (13.0-17.5) gm/dL Hct (39.0-53.0) % RDW (11.5-15.5) % Plt Count (150-450) k/uL Myelocytes # (Manual) (0) k/uL Nucleated RBCs (0-0) /100 WBC Sodium (137-145) mmol/L Potassium (3.5-5.1) mmol/L Carbon Dioxide (22-30) mmol/L BUN (9-20) mg/dL Creatinine (0.66-1.25) mg/dL Glucose (74-99) mg/dL POC Glucose (mg/dL) 112 H 62 L (75-99) mg/dL Plasma Lactic Acid Duong 6.6 H* (0.7-2.0) mmol/L Calcium (8.4-10.2) mg/dL Phosphorus (2.5-4.5) mg/dL Total Bilirubin (0.2-1.3) mg/dL AST (17-59) U/L ALT (21-72) U/L Alkaline Phosphatase (38-126) U/L Total Protein (6.3-8.2) g/dL Albumin (3.5-5.0) g/dL Crossmatch 03/17/18 03/17/18 03/17/18 Range/Units 07:50 09:20 09:20 RBC 2.83 L (4.30-5.90) m/uL Hgb 9.7 L D (13.0-17.5) gm/dL Hct 27.9 L (39.0-53.0) % RDW 22.1 H (11.5-15.5) % Plt Count 50 L (150-450) k/uL Myelocytes # (Manual) 0.09 H (0) k/uL Nucleated RBCs 6 H (0-0) /100 WBC Sodium 135 L (137-145) mmol/L Potassium 3.0 L (3.5-5.1) mmol/L Carbon Dioxide 18 L (22-30) mmol/L BUN 4 L (9-20) mg/dL Creatinine 2.57 H (0.66-1.25) mg/dL Glucose 100 H (74-99) mg/dL POC Glucose (mg/dL) 135 H (75-99) mg/dL Plasma Lactic Acid Duong (0.7-2.0) mmol/L Calcium 7.4 L (8.4-10.2) mg/dL Phosphorus (2.5-4.5) mg/dL Total Bilirubin 2.5 H (0.2-1.3) mg/dL AST 1466 H (17-59) U/L ALT 303 H (21-72) U/L Alkaline Phosphatase 388 H (38-126) U/L Total Protein 4.4 L (6.3-8.2) g/dL Albumin 1.6 L (3.5-5.0) g/dL Crossmatch 03/17/18 03/17/18 Range/Units 11:20 11:20 RBC (4.30-5.90) m/uL Hgb (13.0-17.5) gm/dL Hct (39.0-53.0) % RDW (11.5-15.5) % Plt Count (150-450) k/uL Myelocytes # (Manual) (0) k/uL Nucleated RBCs (0-0) /100 WBC Sodium (137-145) mmol/L Potassium 2.7 L* (3.5-5.1) mmol/L Carbon Dioxide 18 L (22-30) mmol/L BUN 4 L (9-20) mg/dL Creatinine 2.70 H (0.66-1.25) mg/dL Glucose (74-99) mg/dL POC Glucose (mg/dL) (75-99) mg/dL Plasma Lactic Acid Duong 8.8 H* (0.7-2.0) mmol/L Calcium 7.4 L (8.4-10.2) mg/dL Phosphorus 2.1 L (2.5-4.5) mg/dL Total Bilirubin 2.4 H (0.2-1.3) mg/dL AST 1420 H (17-59) U/L ALT 309 H (21-72) U/L Alkaline Phosphatase 399 H (38-126) U/L Total Protein 4.2 L (6.3-8.2) g/dL Albumin 1.5 L (3.5-5.0) g/dL Crossmatch Assessment and Plan Assessment: -Hypotension, possible septic shock, pressor dependent -Left AKA stump wound -Stage III sacral wound with abscess, secondary cellulitis -Chronic end-stage renal disease IV on hemodialysis -Anemia, macrocytic secondary to renal failure -Hypokalemia -Hypoglycemia -Elevated LFTs, possibly hepatitis -Hypertension Plan: Continue on current medication regime ,monitoring and symptomatic treatment. Antibiotics and wound care as per infectious disease. Surgical evaluation of wounds pending for potential debridement. Maintain gentle IV fluid hydration. Electro lytes being supplemented. Close monitoring of renal function, LFTs, creatinine with repeat labs ordered for a.m. Further recommendations to follow. The impression and plan of care has been dictated as directed. : I performed a history and examination of this patient, discussed the same with the dictator. I agree with the dictator's note ,documented as a scribe. Any additional findings or plans will be noted.
[2018-03-18 19:01] LABS: Glucose,Whole Blood 102 mg/dL (75-99)
--- NOTE | 2018-03-18 19:03 | P.PN ---
Subjective Progress Note Date: 03/18/18 Progress note being dictated for Dr. Villalta. Interval history: This is a 42-year-old gentleman admitted in the ICU with hypotension, possible septic shock, left leg cellulitis, chronic end-stage renal disease and multiple other medical issues. Remains pressor dependent, currently on 2 mics of Levophed. Receiving hemodialysis today. CT of abdomen and pelvis suggestive of gallbladder dysfunction, abdominal ascites and TB bili , LFTs worsening. Potassium 2.7, magnesium 1.7, receiving supplements. Remains confused. Maintained on IV fluids of 0.9 at 75 MLS per hour. Elevated lactic acid 2 attributed to renal failure, dehydration and infection. Maintained on IV antibiotics.Sacral wound and AKA wound. Evaluated by both infectious disease and surgery for potential debridement. 03/18/2018 evaluated by surgery, potential further sacral decubitus debridement being discussed with family, no surgery regarding gallbladder at this time. Receiving hemodialysis; required Levophed to be increased to 10 mcgs. Diet intake poor, maintained on D10 at 20 MLS/hr. blood sugars better controlled. Chest x-ray reporting developing mild CHF, right greater than left moderate- sized bilateral pleural effusions. Renal function improving, T bili, LFTs worsening. Unable to obtain review systems given patient's current clinical condition. Active Medications Hydrocodone Bitart/Acetaminophen ([place] 5-325) 1 each PO Q6HR PRN PRN Reason: Pain Last Admin: 03/18/18 16:44 Dose: 1 each Alprazolam (Xanax) 0.25 mg PO TID PRN PRN Reason: Anxiety Atorvastatin Calcium (Lipitor) 40 mg PO HS [facility] Last Admin: 03/18/18 00:13 Dose: 40 mg Carvedilol (Coreg) 3.125 mg PO BID-W/MEALS [facility] Last Admin: 03/18/18 16:35 Dose: Not Given Collagenase (Santyl) 1 applic TOPICAL DAILY [facility] Last Admin: 03/18/18 12:47 Dose: 1 applic Darbepoetin Garth (Aranesp) 40 mcg SQ Q7D [facility] Last Admin: 03/17/18 14:51 Dose: 40 mcg Divalproex Sodium (Depakote) 250 mg PO BID@0600,1800 [facility] Last Admin: 03/18/18 18:16 Dose: 250 mg Famotidine (Pepcid) 20 mg PO DAILY@0600 [facility] Last Admin: 03/18/18 05:54 Dose: 20 mg Heparin Sodium (Porcine) (Heparin) 5,000 unit SQ Q8H [facility] Last Admin: 03/18/18 13:58 Dose: 5,000 unit Norepinephrine Bitartrate 4 mg (/ Sodium Chloride) 250 mls @ 0 mls/hr IV .Q0M [facility]; Protocol Last Titration: 03/18/18 16:30 Dose: 4 mcg/min, 15 mls/hr Piperacillin Sod/Tazobactam (Sod 3.375 gm/ Sodium Chloride) 100 mls @ 25 mls/ hr IVPB Q12HR [facility] Last Admin: 03/18/18 12:02 Dose: 25 mls/hr Sodium Chloride (Saline 0.9%) 500 mls @ 20 mls/hr IV .Q24H [facility] Last Admin: 03/18/18 17:34 Dose: 20 mls/hr Dextrose/Water 500 ml/ IV (Solution) 500 mls @ 20 mls/hr IV .Q24H [facility] Last Admin: 03/18/18 10:01 Dose: 20 mls/hr Midodrine (Proamatine) 10 mg PO AC-TID [facility] Last Admin: 03/18/18 18:16 Dose: 10 mg Miscellaneous Information (Pharmacy To Dose Iv Vancomycin) 1 each MISCELLANE DIRECTED PRN PRN Reason: Per Protocol Naloxone HCl (Narcan) 0.2 mg IV Q2M PRN PRN Reason: Opioid Reversal Naloxone HCl (Narcan) 0.2 mg IV Q2M PRN PRN Reason: Opioid Reversal Pantoprazole Sodium (Protonix) 40 mg PO AC-BRKFST [facility] Last Admin: 03/18/18 06:53 Dose: 40 mg Sertraline HCl (Zoloft) 50 mg PO HS [facility] Last Admin: 03/18/18 00:13 Dose: 50 mg Temazepam (Restoril) 15 mg PO HS PRN PRN Reason: Insomnia Objective - Vital Signs Vital signs: Vital Signs Temp 98.4 F 03/18/18 16:00 Pulse 98 03/18/18 18:00 Resp 21 03/18/18 18:00 BP 112/66 03/18/18 18:00 Pulse Ox 96 03/18/18 18:00 Intake & Output 03/17/18 03/18/18 03/18/18 18:59 06:59 18:59 Intake Total 329.375 619.678 744.563 Output Total 0 0 Balance 329.375 619.678 744.563 Weight 70 kg Intake: IV 305 260 420 Dextrose 10% in Water 500 180 ml In Empty Bag 1 bag @ 20 mls/hr IV .Q24H [facility] Rx #:[id number] Piperacillin-Tazobactam 3 100 .375 gm In Sodium Chloride 0.9% 100 ml @ 25 mls/hr IVPB Q12HR [facility] Rx #:[id number] Sodium Chloride 0.9% 1, 225 000 ml @ 75 mls/hr IV . [id number] [facility] Rx#:[id number] Sodium Chloride 0.9% 500 80 260 140 ml 500 ml @ 20 mls/hr IV .Q24H [facility] Rx#:[id number] Intake, IV Titration 24.375 359.678 234.563 Amount Norepinephrine 4 mg In 24.375 209.678 234.563 Sodium Chloride 0.9% 250 ml @ Titrate IV .Q0M [facility] Rx#:[id number] Piperacillin-Tazobactam 3 100 .375 gm In Sodium Chloride 0.9% 100 ml @ 25 mls/hr IVPB Q12HR [facility] Rx #:[id number] Sodium Chloride 0.9% 500 50 ml 500 ml @ 20 mls/hr IV .Q24H [facility] Rx#:[id number] Oral 90 Output: Urine 0 0 Other: # Bowel Movements 1 - Exam PHYSICAL EXAM: VITAL SIGNS: As above GENERAL: Sitting up in bed,lethargic, confused, no acute distress HEENT: Normocephalic, Conjunctivae normal. eyes normal. Oral mucosa moist. NECK: No JVD. No thyroid enlargement. No LNs. CARDIOVASCULAR: S1, S2 muffled. No murmur RESPIRATION: Breath sounds diminished in the bases. No rhonchi or crackles. ABDOMEN: Soft, distended, nontender, positive bowel sounds. Positive edema, no guarding LEGS: No edema, no clubbing Left AKA stump with necrotic black edges without drainage, no redness Sacral wound, stage III-coccyx with sloughing, redness, without odor.. PSYCHIATRY: Alert and oriented -2, mood and affect normal. NERVOUS SYSTEM: Cranial N 2-12 grossly normal. Diffuse weakness No focal deficits. Microbiology 03/17/18 13:00 Knee - Left Gram Stain - Preliminary 03/17/18 13:00 Knee - Left Wound Culture - Preliminary Gram Neg Bacilli Sandra albicans 03/17/18 13:10 Buttock Gram Stain - Preliminary 03/17/18 13:10 Buttock Wound Culture - Preliminary 03/16/18 21:16 Blood Blood Culture - Preliminary No Growth after 24 hours - Labs CBC & Chem 7: 03/18/18 05:19 03/18/18 05:19 Labs: Abnormal Lab Results - Last 24 Hours (Table) 03/17/18 03/17/18 03/17/18 Range/Units 11:20 15:37 19:07 WBC (3.8-10.6) k/uL RBC (4.30-5.90) m/uL Hgb (13.0-17.5) gm/dL Hct (39.0-53.0) % MCV (80.0-100.0) fL RDW (11.5-15.5) % Plt Count (150-450) k/uL Neutrophils # (Manual) (1.3-7.7) k/uL Metamyelocytes # (Man) (0) k/uL Nucleated RBCs (0-0) /100 WBC Sodium (137-145) mmol/L Carbon Dioxide (22-30) mmol/L BUN (9-20) mg/dL Creatinine (0.66-1.25) mg/dL POC Glucose (mg/dL) 121 H (75-99) mg/dL Calcium (8.4-10.2) mg/dL Phosphorus (2.5-4.5) mg/dL Iron 36 L (65-175) ug/dL TIBC 91 L (228-460) ug/dL Ferritin >85464.0 H (22.0-322.0) ng/mL Total Bilirubin (0.2-1.3) mg/dL AST (17-59) U/L ALT (21-72) U/L Alkaline Phosphatase (38-126) U/L Total Protein (6.3-8.2) g/dL Albumin (3.5-5.0) g/dL PTH Intact 85.9 H (14.0-72.0) pg/mL Hep Bs Antibody Reactive H (Non-Reactive) 03/17/18 03/18/18 03/18/18 Range/Units 20:32 01:45 02:15 WBC (3.8-10.6) k/uL RBC (4.30-5.90) m/uL Hgb (13.0-17.5) gm/dL Hct (39.0-53.0) % MCV (80.0-100.0) fL RDW (11.5-15.5) % Plt Count (150-450) k/uL Neutrophils # (Manual) (1.3-7.7) k/uL Metamyelocytes # (Man) (0) k/uL Nucleated RBCs (0-0) /100 WBC Sodium (137-145) mmol/L Carbon Dioxide (22-30) mmol/L BUN (9-20) mg/dL Creatinine (0.66-1.25) mg/dL POC Glucose (mg/dL) 113 H 45 L 42 L (75-99) mg/dL Calcium (8.4-10.2) mg/dL Phosphorus (2.5-4.5) mg/dL Iron (65-175) ug/dL TIBC (228-460) ug/dL Ferritin (22.0-322.0) ng/mL Total Bilirubin (0.2-1.3) mg/dL AST (17-59) U/L ALT (21-72) U/L Alkaline Phosphatase (38-126) U/L Total Protein (6.3-8.2) g/dL Albumin (3.5-5.0) g/dL PTH Intact (14.0-72.0) pg/mL Hep Bs Antibody (Non-Reactive) 03/18/18 03/18/18 03/18/18 Range/Units 02:24 05:19 05:19 WBC 13.7 H (3.8-10.6) k/uL RBC 2.83 L (4.30-5.90) m/uL Hgb 9.6 L (13.0-17.5) gm/dL Hct 29.7 L (39.0-53.0) % MCV 105.0 H D (80.0-100.0) fL RDW 23.5 H (11.5-15.5) % Plt Count 62 L (150-450) k/uL Neutrophils # (Manual) 11.90 H (1.3-7.7) k/uL Metamyelocytes # (Man) 0.14 H (0) k/uL Nucleated RBCs 10 H (0-0) /100 WBC Sodium 136 L (137-145) mmol/L Carbon Dioxide 15 L (22-30) mmol/L BUN 3 L (9-20) mg/dL Creatinine 2.19 H (0.66-1.25) mg/dL POC Glucose (mg/dL) 114 H (75-99) mg/dL Calcium 7.6 L (8.4-10.2) mg/dL Phosphorus 2.2 L (2.5-4.5) mg/dL Iron (65-175) ug/dL TIBC (228-460) ug/dL Ferritin (22.0-322.0) ng/mL Total Bilirubin 2.7 H (0.2-1.3) mg/dL AST 2916 H (17-59) U/L ALT 494 H (21-72) U/L Alkaline Phosphatase 390 H (38-126) U/L Total Protein 4.6 L (6.3-8.2) g/dL Albumin 1.6 L (3.5-5.0) g/dL PTH Intact (14.0-72.0) pg/mL Hep Bs Antibody (Non-Reactive) 03/18/18 03/18/18 03/18/18 Range/Units 07:00 08:33 09:11 WBC (3.8-10.6) k/uL RBC (4.30-5.90) m/uL Hgb (13.0-17.5) gm/dL Hct (39.0-53.0) % MCV (80.0-100.0) fL RDW (11.5-15.5) % Plt Count (150-450) k/uL Neutrophils # (Manual) (1.3-7.7) k/uL Metamyelocytes # (Man) (0) k/uL Nucleated RBCs (0-0) /100 WBC Sodium (137-145) mmol/L Carbon Dioxide (22-30) mmol/L BUN (9-20) mg/dL Creatinine (0.66-1.25) mg/dL POC Glucose (mg/dL) 69 L 54 L 58 L (75-99) mg/dL Calcium (8.4-10.2) mg/dL Phosphorus (2.5-4.5) mg/dL Iron (65-175) ug/dL TIBC (228-460) ug/dL Ferritin (22.0-322.0) ng/mL Total Bilirubin (0.2-1.3) mg/dL AST (17-59) U/L ALT (21-72) U/L Alkaline Phosphatase (38-126) U/L Total Protein (6.3-8.2) g/dL Albumin (3.5-5.0) g/dL PTH Intact (14.0-72.0) pg/mL Hep Bs Antibody (Non-Reactive) 03/18/18 03/18/18 03/18/18 Range/Units 09:44 11:58 11:59 WBC (3.8-10.6) k/uL RBC (4.30-5.90) m/uL Hgb (13.0-17.5) gm/dL Hct (39.0-53.0) % MCV (80.0-100.0) fL RDW (11.5-15.5) % Plt Count (150-450) k/uL Neutrophils # (Manual) (1.3-7.7) k/uL Metamyelocytes # (Man) (0) k/uL Nucleated RBCs (0-0) /100 WBC Sodium (137-145) mmol/L Carbon Dioxide (22-30) mmol/L BUN (9-20) mg/dL Creatinine (0.66-1.25) mg/dL POC Glucose (mg/dL) 169 H 31 L 130 H (75-99) mg/dL Calcium (8.4-10.2) mg/dL Phosphorus (2.5-4.5) mg/dL Iron (65-175) ug/dL TIBC (228-460) ug/dL Ferritin (22.0-322.0) ng/mL Total Bilirubin (0.2-1.3) mg/dL AST (17-59) U/L ALT (21-72) U/L Alkaline Phosphatase (38-126) U/L Total Protein (6.3-8.2) g/dL Albumin (3.5-5.0) g/dL PTH Intact (14.0-72.0) pg/mL Hep Bs Antibody (Non-Reactive) 03/18/18 03/18/18 03/18/18 Range/Units 17:16 17:18 17:20 WBC (3.8-10.6) k/uL RBC (4.30-5.90) m/uL Hgb (13.0-17.5) gm/dL Hct (39.0-53.0) % MCV (80.0-100.0) fL RDW (11.5-15.5) % Plt Count (150-450) k/uL Neutrophils # (Manual) (1.3-7.7) k/uL Metamyelocytes # (Man) (0) k/uL Nucleated RBCs (0-0) /100 WBC Sodium (137-145) mmol/L Carbon Dioxide (22-30) mmol/L BUN (9-20) mg/dL Creatinine (0.66-1.25) mg/dL POC Glucose (mg/dL) 66 L <20 L 59 L (75-99) mg/dL Calcium (8.4-10.2) mg/dL Phosphorus (2.5-4.5) mg/dL Iron (65-175) ug/dL TIBC (228-460) ug/dL Ferritin (22.0-322.0) ng/mL Total Bilirubin (0.2-1.3) mg/dL AST (17-59) U/L ALT (21-72) U/L Alkaline Phosphatase (38-126) U/L Total Protein (6.3-8.2) g/dL Albumin (3.5-5.0) g/dL PTH Intact (14.0-72.0) pg/mL Hep Bs Antibody (Non-Reactive) 03/18/18 Range/Units 17:48 WBC (3.8-10.6) k/uL RBC (4.30-5.90) m/uL Hgb (13.0-17.5) gm/dL Hct (39.0-53.0) % MCV (80.0-100.0) fL RDW (11.5-15.5) % Plt Count (150-450) k/uL Neutrophils # (Manual) (1.3-7.7) k/uL Metamyelocytes # (Man) (0) k/uL Nucleated RBCs (0-0) /100 WBC Sodium (137-145) mmol/L Carbon Dioxide (22-30) mmol/L BUN (9-20) mg/dL Creatinine (0.66-1.25) mg/dL POC Glucose (mg/dL) 107 H (75-99) mg/dL Calcium (8.4-10.2) mg/dL Phosphorus (2.5-4.5) mg/dL Iron (65-175) ug/dL TIBC (228-460) ug/dL Ferritin (22.0-322.0) ng/mL Total Bilirubin (0.2-1.3) mg/dL AST (17-59) U/L ALT (21-72) U/L Alkaline Phosphatase (38-126) U/L Total Protein (6.3-8.2) g/dL Albumin (3.5-5.0) g/dL PTH Intact (14.0-72.0) pg/mL Hep Bs Antibody (Non-Reactive) Microbiology - Last 24 Hours (Table) 03/17/18 13:00 Gram Stain - Preliminary Knee - Left Wound Culture - Preliminary Gram Neg Bacilli Sandra albicans 03/17/18 13:10 Gram Stain - Preliminary Buttock Wound Culture - Preliminary 03/16/18 21:16 Blood Culture - Preliminary Blood No Growth after 24 hours Assessment and Plan Assessment: -Hypotension, possible septic shock, pressor dependent -Left AKA stump wound, present on admission. -Stage III sacral wound with abscess, secondary cellulitis, present on admission -Chronic end-stage renal disease IV on hemodialysis.Previously on peritoneal dialysis,malfunctioning peritoneal,switched to HD -Anemia, macrocytic secondary to renal failure -Hypokalemia -Hypoglycemia -Elevated LFTs, possibly hepatitis -Hypertension -Bilateral pleural effusions Plan: Continue on current medication regime ,monitoring and symptomatic treatment. Maintain Antibiotics and wound care as per infectious disease. Surgical evaluation noted and appreciated .wound debridement being discussed with family, including questionable patient's stability at this time. Maintain gentle IV fluid hydration. Close monitoring of renal function, LFTs, creatinine with repeat labs ordered for a.m. prognosis guarded given multiple complex medical issues. The impression and plan of care has been dictated as directed. : I performed a history and examination of this patient, discussed the same with the dictator. I agree with the dictator's note ,documented as a scribe. Any additional findings or plans will be noted.
[2018-03-18 20:27] LABS: Glucose,Whole Blood 84 mg/dL (75-99)
[2018-03-18] MEDS: POTASSIUM CHLORIDE 10 MEQ in WATER FOR INJECTION 1 100ML.BAG IVPB SCH (23:41)
[2018-03-18 23:43] LABS: Glucose,Whole Blood 76 mg/dL (75-99)
--- NOTE | 2018-03-19 00:04 | PN ---
PROGRESS NOTE DATE OF SERVICE: 03/18/2018. REASON FOR FOLLOWUP: 1. Infected sacral pressure ulcer. 2. Left above knee amputation wound. INTERVAL HISTORY: The patient is afebrile. He has been breathing comfortably. Denies having any chest pain or cough. No nausea, vomiting or diarrhea. EXAMINATION: Blood pressure is 90/83, with a pulse of 92, temperature 98.5. He is 94% on room air. GENERAL DESCRIPTION: A middle-aged male lying in bed in no distress. RESPIRATORY SYSTEM: Unlabored breathing. Clear to auscultation anteriorly. HEART: S1, S2. Regular rate and rhythm. ABDOMEN: Soft left AKA and sacral wound currently dressed up. LABS: Hemoglobin 9.6, white count 13.7, BUN 30, creatinine 2.19. DIAGNOSTIC IMPRESSION AND PLAN: Patient with infected sacral pressure ulcer, stage III, with culture currently pending. Patient is currently covered with vancomycin and Zosyn. Continue local wound care with Santyl. Continue supportive care. MMODL / IJN: [id number] /
[2018-03-19] MEDS: HYDROcodone/APAP 5-325MG 1 EACH TAB PO PRN ×2 (00:40→10:23)
[2018-03-19] MEDS: POTASSIUM CHLORIDE 10 MEQ in WATER FOR INJECTION 1 100ML.BAG IVPB SCH ×3 (00:45→02:48)
[2018-03-19 01:51] LABS: Glucose,Whole Blood 78 mg/dL (75-99)
[2018-03-19] MEDS: DEXTROSE 10% IN WATER 500 ML in EMPTY BAG 1 BAG IV SCH ×3 (02:49→17:11)
[2018-03-19] MEDS: HEPARIN SODIUM,PORCINE 5,000 UNIT/ML 1 ML VIAL SQ SCH ×3 (04:52→21:35)
[2018-03-19] MEDS ORDERED: DEXTROSE 50%-WATER 50 ML SYRINGE IVP STA (04:58)
[2018-03-19] MEDS: NOREPINEPHRINE 4 MG in SODIUM CHLORIDE 0.9% 250 ML IV SCH (05:00)
[2018-03-19] MEDS: FAMOTIDINE 20 MG TAB PO SCH (05:04)
[2018-03-19 05:21] LABS: Glucose,Whole Blood 69 mg/dL (75-99)
[2018-03-19] MEDS: CARVEDILOL 3.125 MG TAB PO SCH ×2 (05:57→17:24)
[2018-03-19 06:27] LABS: ALT 352 U/L (21-72); Albumin 1.5 g/dL (3.5-5.0); Alkaline Phosphatase 351 U/L (38-126); Anion Gap 18 mmol/L; Blood Urea Nitrogen <2 mg/dL (9-20); Calcium 7.4 mg/dL (8.4-10.2); Carbon Dioxide 14 mmol/L (22-30); Chloride 99 mmol/L (98-107); Glucose 171 mg/dL (74-99); Magnesium 1.8 mg/dL (1.6-2.3); Phosphorus 1.8 mg/dL (2.5-4.5); Potassium 4.2 mmol/L (3.5-5.1); Sodium 131 mmol/L (137-145); Total Bilirubin 2.5 mg/dL (0.2-1.3); Total Protein 4.2 g/dL (6.3-8.2)
[2018-03-19 06:32] LABS: Vancomycin,Random 17.2 ug/mL
[2018-03-19 06:33] LABS: AST 1368 U/L (17-59)
[2018-03-19 07:07] LABS: Anisocytosis Moderate; HCT 27.9 % (39.0-53.0); HGB 9.1 gm/dL (13.0-17.5); Hypochromasia Slight; MCH 33.8 pg (25.0-35.0); MCHC 32.5 g/dL (31.0-37.0); MCV 103.9 fL (80.0-100.0); Macrocytosis Marked; Mean Platelet Volume 9.8; Poikilocytosis Moderate; RBC 2.69 m/uL (4.30-5.90); RDW 23.4 % (11.5-15.5)
[2018-03-19 07:13] LABS: Platelet Count 36 k/uL (150-450)
--- NOTE | 2018-03-19 07:21 | P.PN ---
Subjective Patient is seen in follow-up for end-stage renal disease. He is maintained on hemodialysis on a Thursday schedule. Patient is awake but somewhat lethargic. Patient continues to have episodes of hypoglycemia and is maintained on D10 drip. Oral intake is poor. Currently on 5 mics of Levophed. Last hemodialysis was yesterday and tolerated 2 L ultrafiltration. Vital signs are stable. General: The patient appeared well nourished and normally developed. HEENT: Head exam is unremarkable. Neck is without jugular venous distension. LUNGS: Lungs are clear to auscultation and percussion. Breath sounds decreased. HEART: Rate and Rhythm are regular. First and second heart sounds normal. No murmurs, rubs or gallops. ABDOMEN: Abdominal exam reveals normal bowel sounds. Non-tender and non- distended. No evidence of peritonitis. EXTREMITITES: No clubbing, cyanosis, or edema. Left AKA noted. Objective - Vital Signs Vital signs: Vital Signs Temp 98.5 F 03/19/18 04:00 Pulse 92 03/19/18 05:00 Resp 21 03/19/18 05:00 BP 84/35 03/19/18 05:00 Pulse Ox 98 03/19/18 05:00 Intake & Output 03/18/18 03/19/18 03/19/18 18:59 06:59 18:59 Intake Total 331.621 8626.813 Output Total 0 Balance 147.582 3131.813 Weight 68.7 kg Intake: IV 460 545 Dextrose 10% in Water 500 200 380 ml In Empty Bag 1 bag @ 40 mls/hr IV .[id number] [facility] Rx#:[id number] Piperacillin-Tazobactam 3 100 100 .375 gm In Sodium Chloride 0.9% 100 ml @ 25 mls/hr IVPB Q12HR [facility] Rx #:[id number] Sodium Chloride 0.9% 500 160 65 ml 500 ml @ 20 mls/hr IV .Q24H [facility] Rx#:[id number] Intake, IV Titration 234.563 595.813 Amount Norepinephrine 4 mg In 234.563 195.813 Sodium Chloride 0.9% 250 ml @ Titrate IV .Q0M [facility] Rx#:[id number] Potassium Chloride 10 meq 400 In Water For Injection 1 100ml.bag @ 100 mls/hr IVPB Q1H [facility] Rx#: [id number] Oral 90 Output: Urine 0 - Labs CBC & Chem 7: 03/19/18 05:30 03/19/18 05:30 Labs: Abnormal Lab Results - Last 24 Hours (Table) 03/18/18 03/18/18 03/18/18 Range/Units 05:19 05:19 08:33 WBC 13.7 H (3.8-10.6) k/uL RBC (4.30-5.90) m/uL Hgb (13.0-17.5) gm/dL Hct (39.0-53.0) % MCV (80.0-100.0) fL RDW (11.5-15.5) % Plt Count (150-450) k/uL Neutrophils # (Manual) 11.90 H (1.3-7.7) k/uL Metamyelocytes # (Man) 0.14 H (0) k/uL Nucleated RBCs 10 H (0-0) /100 WBC Sodium (137-145) mmol/L Potassium (3.5-5.1) mmol/L Carbon Dioxide (22-30) mmol/L BUN (9-20) mg/dL Creatinine (0.66-1.25) mg/dL Glucose (74-99) mg/dL POC Glucose (mg/dL) 54 L (75-99) mg/dL Calcium (8.4-10.2) mg/dL Phosphorus (2.5-4.5) mg/dL Total Bilirubin (0.2-1.3) mg/dL AST 2916 H (17-59) U/L ALT (21-72) U/L Alkaline Phosphatase (38-126) U/L Total Protein (6.3-8.2) g/dL Albumin (3.5-5.0) g/dL 03/18/18 03/18/18 03/18/18 Range/Units 09:11 09:44 11:58 WBC (3.8-10.6) k/uL RBC (4.30-5.90) m/uL Hgb (13.0-17.5) gm/dL Hct (39.0-53.0) % MCV (80.0-100.0) fL RDW (11.5-15.5) % Plt Count (150-450) k/uL Neutrophils # (Manual) (1.3-7.7) k/uL Metamyelocytes # (Man) (0) k/uL Nucleated RBCs (0-0) /100 WBC Sodium (137-145) mmol/L Potassium (3.5-5.1) mmol/L Carbon Dioxide (22-30) mmol/L BUN (9-20) mg/dL Creatinine (0.66-1.25) mg/dL Glucose (74-99) mg/dL POC Glucose (mg/dL) 58 L 169 H 31 L (75-99) mg/dL Calcium (8.4-10.2) mg/dL Phosphorus (2.5-4.5) mg/dL Total Bilirubin (0.2-1.3) mg/dL AST (17-59) U/L ALT (21-72) U/L Alkaline Phosphatase (38-126) U/L Total Protein (6.3-8.2) g/dL Albumin (3.5-5.0) g/dL 03/18/18 03/18/18 03/18/18 Range/Units 11:59 17:16 17:18 WBC (3.8-10.6) k/uL RBC (4.30-5.90) m/uL Hgb (13.0-17.5) gm/dL Hct (39.0-53.0) % MCV (80.0-100.0) fL RDW (11.5-15.5) % Plt Count (150-450) k/uL Neutrophils # (Manual) (1.3-7.7) k/uL Metamyelocytes # (Man) (0) k/uL Nucleated RBCs (0-0) /100 WBC Sodium (137-145) mmol/L Potassium (3.5-5.1) mmol/L Carbon Dioxide (22-30) mmol/L BUN (9-20) mg/dL Creatinine (0.66-1.25) mg/dL Glucose (74-99) mg/dL POC Glucose (mg/dL) 130 H 66 L <20 L (75-99) mg/dL Calcium (8.4-10.2) mg/dL Phosphorus (2.5-4.5) mg/dL Total Bilirubin (0.2-1.3) mg/dL AST (17-59) U/L ALT (21-72) U/L Alkaline Phosphatase (38-126) U/L Total Protein (6.3-8.2) g/dL Albumin (3.5-5.0) g/dL 03/18/18 03/18/18 03/18/18 Range/Units 17:20 17:48 18:58 WBC (3.8-10.6) k/uL RBC (4.30-5.90) m/uL Hgb (13.0-17.5) gm/dL Hct (39.0-53.0) % MCV (80.0-100.0) fL RDW (11.5-15.5) % Plt Count (150-450) k/uL Neutrophils # (Manual) (1.3-7.7) k/uL Metamyelocytes # (Man) (0) k/uL Nucleated RBCs (0-0) /100 WBC Sodium (137-145) mmol/L Potassium (3.5-5.1) mmol/L Carbon Dioxide (22-30) mmol/L BUN (9-20) mg/dL Creatinine (0.66-1.25) mg/dL Glucose (74-99) mg/dL POC Glucose (mg/dL) 59 L 107 H 102 H (75-99) mg/dL Calcium (8.4-10.2) mg/dL Phosphorus (2.5-4.5) mg/dL Total Bilirubin (0.2-1.3) mg/dL AST (17-59) U/L ALT (21-72) U/L Alkaline Phosphatase (38-126) U/L Total Protein (6.3-8.2) g/dL Albumin (3.5-5.0) g/dL 03/18/18 03/19/18 03/19/18 Range/Units 20:10 04:57 05:30 WBC 12.7 H (3.8-10.6) k/uL RBC 2.69 L (4.30-5.90) m/uL Hgb 9.1 L (13.0-17.5) gm/dL Hct 27.9 L (39.0-53.0) % MCV 103.9 H (80.0-100.0) fL RDW 23.4 H (11.5-15.5) % Plt Count 36 L (150-450) k/uL Neutrophils # (Manual) (1.3-7.7) k/uL Metamyelocytes # (Man) (0) k/uL Nucleated RBCs (0-0) /100 WBC Sodium (137-145) mmol/L Potassium 3.3 L (3.5-5.1) mmol/L Carbon Dioxide (22-30) mmol/L BUN (9-20) mg/dL Creatinine (0.66-1.25) mg/dL Glucose (74-99) mg/dL POC Glucose (mg/dL) 69 L (75-99) mg/dL Calcium (8.4-10.2) mg/dL Phosphorus (2.5-4.5) mg/dL Total Bilirubin (0.2-1.3) mg/dL AST (17-59) U/L ALT (21-72) U/L Alkaline Phosphatase (38-126) U/L Total Protein (6.3-8.2) g/dL Albumin (3.5-5.0) g/dL 03/19/18 Range/Units 05:30 WBC (3.8-10.6) k/uL RBC (4.30-5.90) m/uL Hgb (13.0-17.5) gm/dL Hct (39.0-53.0) % MCV (80.0-100.0) fL RDW (11.5-15.5) % Plt Count (150-450) k/uL Neutrophils # (Manual) (1.3-7.7) k/uL Metamyelocytes # (Man) (0) k/uL Nucleated RBCs (0-0) /100 WBC Sodium 131 L (137-145) mmol/L Potassium (3.5-5.1) mmol/L Carbon Dioxide 14 L (22-30) mmol/L BUN <2 L (9-20) mg/dL Creatinine 1.61 H (0.66-1.25) mg/dL Glucose 171 H (74-99) mg/dL POC Glucose (mg/dL) (75-99) mg/dL Calcium 7.4 L (8.4-10.2) mg/dL Phosphorus 1.8 L (2.5-4.5) mg/dL Total Bilirubin 2.5 H (0.2-1.3) mg/dL AST 1368 H (17-59) U/L ALT 352 H (21-72) U/L Alkaline Phosphatase 351 H (38-126) U/L Total Protein 4.2 L (6.3-8.2) g/dL Albumin 1.5 L (3.5-5.0) g/dL Microbiology - Last 24 Hours (Table) 03/16/18 21:16 Blood Culture - Preliminary Blood No Growth after 48 hours 03/17/18 13:00 Gram Stain - Preliminary Knee - Left Wound Culture - Preliminary Gram Neg Bacilli Sandra albicans Assessment and Plan Plan: Assessment: 1. End-stage renal disease maintained on hemodialysis on a Thursday schedule. 2. Hypokalemia from poor oral intake and low potassium dialysate. Status post replacement. Better. 3. Hypotension with concern for underlying sepsis. Currently on 5 mics of Levophed. 4. Hypoglycemia maintained on D10 drip. Oral intake is poor. 5. Diabetes mellitus. 6. Volume overload. Improved with ultrafiltration. 7. Status post left [id number] amputation. 8. Anemia of chronic kidney disease. Iron replete. Maintained on Aranesp. 9. Chronic kidney disease mineral bone disease. Phosphorus 1.8 this morning. PTH 86. 10. 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 Gen. surgery consulted for possible debridement. 11. Metabolic acidosis secondary to chronic kidney disease and lactic acidosis. Plan: Hemodialysis tomorrow. Maintain midodrine. Wean Levophed. Follow-up cultures. Phosphorus being replaced. Patient has a necrotic ulcer on his penis and also had one on his wrist which is improved. Continue to avoid calcium based binders and vitamin D supplementation. PTH is not high. Add oral sodium bicarbonate.
--- NOTE | 2018-03-19 07:33 | XR ---
EXAMINATION TYPE: XR chest 1V DATE OF EXAM: 03/19/2018 COMPARISON: 03/18/2018 HISTORY: Chest pain TECHNIQUE: Single frontal view of the chest is obtained. FINDINGS: Pulmonary venous congestion with bilateral pleural effusions and basilar atelectasis appear unchanged . The cardiac silhouette size is within normal limits. The osseous structures are intact. IMPRESSION: 1. Pulmonary venous congestion with bilateral pleural effusions and basilar atelectasis appear uncha nged.
[2018-03-19] MEDS: DIVALPROEX 250 MG TABLET.DR PO SCH ×2 (07:49→18:47)
[2018-03-19] MEDS: PANTOPRAZOLE 40 MG TABLET PO SCH (07:49)
[2018-03-19] MEDS: MIDODRINE 5 MG TAB PO SCH ×3 (07:49→13:02)
[2018-03-19] MEDS ORDERED: Phosphorus Replacement Protoco 1 EACH MISC MISCELLANE PRN (07:51)
[2018-03-19] MEDS ORDERED: SODIUM PHOSPHATE 10 MMOL in SODIUM CHLORIDE 0.9% 250 ML IVPB SCH (08:00)
[2018-03-19 08:17] LABS: Glucose,Whole Blood 107 mg/dL (75-99)
[2018-03-19] MEDS ORDERED: SODIUM GLYCEROPHOSPHATE 20 MMOL in SODIUM CHLORIDE 0.9% 250 ML IV ONE (08:30)
[2018-03-19 08:41] LABS: Band Neutrophils % 4 %; Monocytes # (M) 0.12 k/uL (0-1.0); Neutrophils % (M) 87 %; Nucleated Red Blood Cells 6 /100 WBC (0-0); Total Cells Counted 200
[2018-03-19 08:42] LABS: Polychromasia Present; Toxic Vacuolation Present
[2018-03-19 08:43] LABS: Mixed Population RBC Present
[2018-03-19] MEDS ORDERED: VANCOMYCIN 1,250 MG in SODIUM CHLORIDE 0.9% 250 ML IVPB ONE (09:00)
--- NOTE | 2018-03-19 09:48 | P.PN ---
Subjective Progress Note Date: 03/19/18 Principal diagnosis: Altered mental status, hypotension, lactic acidosis, rule out sepsis This is a 42-year-old patient with past medical history of end-stage renal disease on hemodialysis, diabetes mellitus type 2, diabetic retinopathy, hypertension, hyperlipidemia, left eye cataract, recent left AKA related to left lower leg diabetic ulcers, infection, and osteomyelitis, who presented to the hospital per EMS on 03/16/2018 at 11:00 in the morning for evaluation of hypotension, lethargy, and hypoglycemia. Patient did his usual dialysis treatment, and angiogram reportedly runs a low blood pressure, usually with SBP in the 80s, this time blood pressure was noted to be around 70. He denied any fever or chills, no difficulty breathing, no chest pain no nausea, no vomiting, no diarrhea. Patient does have a chronic wound on his left stump. Lab work did not show any evidence of leukocytosis, the CBC is 6.1, hemoglobin is 7.2 oh evidence of bleeding, troponin was 0.014, serum sodium was 133, potassium is 3.1 , chloride is 96, BUN is 4, creatinine is 2.03. His serum glucose was 36, she was treated with 1 amp of D50 in the emergency department, plasma lactic acid was 5.7, LFTs were elevated, the AST was 1046, ALT was 231, alkaline phosphatase was 415, total CK was 230, lipase was 29, albumin was 1.6. Chest x- ray showed small basilar pleural effusions and mild atelectasis. EKG showed normal sinus rhythm with nonspecific ST abnormality. Brain CT showed no acute intracranial process, showed right mastoid sinus and middle ear cavity opacification. CT of abdomen and pelvis showed cardiomegaly with pleural effusions and basilar consolidation and atelectasis. Moderate amount of ascites fluid, large gallbladder suggestive of some gallbladder dysfunction, was no evidence of free air, there was extensive vessel calcification. No retroperitoneal adenopathy, no bony destructive process. Patient given a IV fluid bolus of 0.9 normal saline, and his maintenance IV fluids at 75 ML per hour with subsequent improvement of his blood pressure, he was started on Midrin at 5 mg 3 times daily. Started on Zosyn and vancomycin for empiric antibiotic coverage, blood cultures and urine cultures were collected and sent. He was started on small dose of Levofed. Currently his blood pressure is 93/ 53, patient is afebrile, pulse ox on 2 L per nasal cannula is 98%, remains on small dose of Levophed, currently at 1 jasvir per minute. Patient has a draining wound on his left stump, he has a stage III on his coccyx present on admission, with yellow slough off in the wound bed. ID service has been consult, surgery has been consulted for left stump wound. On 03/18/2018 patient seen in follow-up in the intensive care unit, he is somnolent, but easily arousable to verbal stimuli, more conversant on today's exam. Denies any acute distress, yesterday we increased the patient's Midrin to 10 mg 3 times a day. He remains on vasopressor support, Levothroid is currently infusing at a rate of 3 mics per minute, maintenance IV fluid is 0.9 normal saline at a rate of 20 ML per hour. Last eye patient did have her hemodialysis treatment, and apparently patient was very hypotensive, and levo fed be increased to 8 mics per minute, and patient could not finish a whole treatment. Cultures remain negative thus far, chest x-ray shows mild changes of congestive heart failure. Denies any shortness of breath or chest pain, room air pulse ox is 96%, he is afebrile, today's lab work shows WBC of 13.7, hemoglobin is 9.6, sodium is 136, potassium is 3.6, CO2 is 15, BUN history and creatinine is 2.19. Liver enzymes are trending up, total bili is 2.7, AST is 2916, ALT is 494, alkaline phosphatase is 390. Patient is to have frequent episodes of hypoglycemia, and requiring treatment with 50% dextrose. Appetite remains very poor. We will place the patient on 10% dextrose at a rate of 20 ML per hour. D service was consulted local wound care was recommended to the sacral wound with Santyl and moist dressing, and left AKA stump to be Dry. Antibiotic coverage includes Zosyn and vancomycin. No surgery has been consulted for evaluation and debridement of the wound and deep cultures. Nephrology is following, and patient will have another hemodialysis treatment today. On 03/19/2018 patient seen in follow-up in the intensive care unit, remains lethargic, but easily arousable, confused, mumbling. Afebrile, still requiring vasopressor support, currently levo fed is at 5 mics per minute. Did have hemodialysis yesterday. Room air pulse ox is 98%, continues on Midrin at 10 mg 3 times a day, however patient has not been able to consistently take his oral medications, his appetite has been extremely poor, his oral intake is poor. He needs to be hypoglycemic, requiring 50% dextrose, his 10% dextrose infusion was increased to 40 ML per hour. Derrek biology has been reviewed, wound culture in his left stump showed gram-negative bacilli, blood culture and coccyx wound culture remain negative thus far. Patient was evaluated by general surgery for possible debridement of the sacral wound, and patient is a poor surgical candidate. Vascular surgery is following in regards to the left stump wound. Today's labs have been reviewed, WBCs 12.0, hemoglobin is 9.1, sodium is 131, potassium is 4.2, chloride is 99, B1 is less than 2, creatinine is 1.6. Patient will not have hemodialysis today, his random serum cortisol was 26.7, has been persistently hypotensive, although patient chronically runs a low blood pressure in the 80s. Patient has been lethargic, reportedly depressed, he has been having multiple complications and hospitalizations related to his end-stage renal disease, competitions related to osteomyelitis of the left lower extremity, clinical course has been prolonged and complicated. Objective - Vital Signs Vital signs: Vital Signs Temp 97.8 F 03/19/18 08:00 Pulse 91 03/19/18 09:00 Resp 20 03/19/18 09:00 BP 100/74 03/19/18 09:00 Pulse Ox 98 03/19/18 09:00 Intake & Output 03/18/18 03/19/18 03/19/18 18:59 06:59 18:59 Intake Total 872.485 1012.813 120.625 Output Total 0 Balance 609.565 0029.813 120.625 Weight 68.7 kg Intake: IV 460 590 45 Dextrose 10% in Water 500 200 420 40 ml In Empty Bag 1 bag @ 40 mls/hr IV .[id number] [facility] Rx#:[id number] Piperacillin-Tazobactam 3 100 100 .375 gm In Sodium Chloride 0.9% 100 ml @ 25 mls/hr IVPB Q12HR [facility] Rx #:[id number] Sodium Chloride 0.9% 500 160 70 5 ml 500 ml @ 20 mls/hr IV .Q24H [facility] Rx#:[id number] Intake, IV Titration 234.563 595.813 75.625 Amount Norepinephrine 4 mg In 234.563 195.813 75.625 Sodium Chloride 0.9% 250 ml @ Titrate IV .Q0M [facility] Rx#:[id number] Potassium Chloride 10 meq 400 In Water For Injection 1 100ml.bag @ 100 mls/hr IVPB Q1H [facility] Rx#: [id number] Oral 90 Output: Urine 0 - Exam GENERAL EXAM: 42-year-old white male, chronically ill-looking appears much older than stated age somnolent, but easily arousable to verbal stimuli comfortable in no apparent distress. HEAD: Normocephalic/atraumatic. EYES: Normal reaction of pupils, equal size. Conjunctiva pink, sclera white. NOSE: Clear with pink turbinates. THROAT: No erythema or exudates. NECK: No masses, no JVD, no thyroid enlargement, no adenopathy. CHEST: No chest wall deformity. Symmetrical expansion. Right upper chest Benito cath for hemodialysis LUNGS: Equal air entry with no crackles, wheeze, rhonchi or dullness. Diminished breath sounds at the bases CVS: Regular rate and rhythm, normal S1 and S2, no gallops, no murmurs, no rubs ABDOMEN: Soft, nontender. No hepatosplenomegaly, normal bowel sounds, no guarding or rigidity. EXTREMITIES: No clubbing, no edema, no cyanosis, 1+ pedal pulse in the right lower extremity, left AKA stump wound, draining, and there is yellow slough in the wound bed. Stage III on coccyx with slough in the wound bed MUSCULOSKELETAL: Muscle strength and tone normal. SPINE: No scoliosis or deformity SKIN: No rashes CENTRAL NERVOUS SYSTEM: Somnolent, opens eyes to voice, but mumbles. - Labs CBC & Chem 7: 03/19/18 05:30 03/19/18 05:30 Labs: Abnormal Lab Results - Last 24 Hours (Table) 03/18/18 03/18/18 03/18/18 Range/Units 09:44 11:58 11:59 WBC (3.8-10.6) k/uL RBC (4.30-5.90) m/uL Hgb (13.0-17.5) gm/dL Hct (39.0-53.0) % MCV (80.0-100.0) fL RDW (11.5-15.5) % Plt Count (150-450) k/uL Neutrophils # (Manual) (1.3-7.7) k/uL Nucleated RBCs (0-0) /100 WBC Sodium (137-145) mmol/L Potassium (3.5-5.1) mmol/L Carbon Dioxide (22-30) mmol/L BUN (9-20) mg/dL Creatinine (0.66-1.25) mg/dL Glucose (74-99) mg/dL POC Glucose (mg/dL) 169 H 31 L 130 H (75-99) mg/dL Calcium (8.4-10.2) mg/dL Phosphorus (2.5-4.5) mg/dL Total Bilirubin (0.2-1.3) mg/dL AST (17-59) U/L ALT (21-72) U/L Alkaline Phosphatase (38-126) U/L Total Protein (6.3-8.2) g/dL Albumin (3.5-5.0) g/dL 03/18/18 03/18/18 03/18/18 Range/Units 17:16 17:18 17:20 WBC (3.8-10.6) k/uL RBC (4.30-5.90) m/uL Hgb (13.0-17.5) gm/dL Hct (39.0-53.0) % MCV (80.0-100.0) fL RDW (11.5-15.5) % Plt Count (150-450) k/uL Neutrophils # (Manual) (1.3-7.7) k/uL Nucleated RBCs (0-0) /100 WBC Sodium (137-145) mmol/L Potassium (3.5-5.1) mmol/L Carbon Dioxide (22-30) mmol/L BUN (9-20) mg/dL Creatinine (0.66-1.25) mg/dL Glucose (74-99) mg/dL POC Glucose (mg/dL) 66 L <20 L 59 L (75-99) mg/dL Calcium (8.4-10.2) mg/dL Phosphorus (2.5-4.5) mg/dL Total Bilirubin (0.2-1.3) mg/dL AST (17-59) U/L ALT (21-72) U/L Alkaline Phosphatase (38-126) U/L Total Protein (6.3-8.2) g/dL Albumin (3.5-5.0) g/dL 03/18/18 03/18/18 03/18/18 Range/Units 17:48 18:58 20:10 WBC (3.8-10.6) k/uL RBC (4.30-5.90) m/uL Hgb (13.0-17.5) gm/dL Hct (39.0-53.0) % MCV (80.0-100.0) fL RDW (11.5-15.5) % Plt Count (150-450) k/uL Neutrophils # (Manual) (1.3-7.7) k/uL Nucleated RBCs (0-0) /100 WBC Sodium (137-145) mmol/L Potassium 3.3 L (3.5-5.1) mmol/L Carbon Dioxide (22-30) mmol/L BUN (9-20) mg/dL Creatinine (0.66-1.25) mg/dL Glucose (74-99) mg/dL POC Glucose (mg/dL) 107 H 102 H (75-99) mg/dL Calcium (8.4-10.2) mg/dL Phosphorus (2.5-4.5) mg/dL Total Bilirubin (0.2-1.3) mg/dL AST (17-59) U/L ALT (21-72) U/L Alkaline Phosphatase (38-126) U/L Total Protein (6.3-8.2) g/dL Albumin (3.5-5.0) g/dL 03/19/18 03/19/18 03/19/18 Range/Units 04:57 05:30 05:30 WBC 12.0 H (3.8-10.6) k/uL RBC 2.69 L (4.30-5.90) m/uL Hgb 9.1 L (13.0-17.5) gm/dL Hct 27.9 L (39.0-53.0) % MCV 103.9 H (80.0-100.0) fL RDW 23.4 H (11.5-15.5) % Plt Count 36 L (150-450) k/uL Neutrophils # (Manual) 10.90 H (1.3-7.7) k/uL Nucleated RBCs 6 H (0-0) /100 WBC Sodium 131 L (137-145) mmol/L Potassium (3.5-5.1) mmol/L Carbon Dioxide 14 L (22-30) mmol/L BUN <2 L (9-20) mg/dL Creatinine 1.61 H (0.66-1.25) mg/dL Glucose 171 H (74-99) mg/dL POC Glucose (mg/dL) 69 L (75-99) mg/dL Calcium 7.4 L (8.4-10.2) mg/dL Phosphorus 1.8 L (2.5-4.5) mg/dL Total Bilirubin 2.5 H (0.2-1.3) mg/dL AST 1368 H (17-59) U/L ALT 352 H (21-72) U/L Alkaline Phosphatase 351 H (38-126) U/L Total Protein 4.2 L (6.3-8.2) g/dL Albumin 1.5 L (3.5-5.0) g/dL 03/19/18 Range/Units 08:03 WBC (3.8-10.6) k/uL RBC (4.30-5.90) m/uL Hgb (13.0-17.5) gm/dL Hct (39.0-53.0) % MCV (80.0-100.0) fL RDW (11.5-15.5) % Plt Count (150-450) k/uL Neutrophils # (Manual) (1.3-7.7) k/uL Nucleated RBCs (0-0) /100 WBC Sodium (137-145) mmol/L Potassium (3.5-5.1) mmol/L Carbon Dioxide (22-30) mmol/L BUN (9-20) mg/dL Creatinine (0.66-1.25) mg/dL Glucose (74-99) mg/dL POC Glucose (mg/dL) 107 H (75-99) mg/dL Calcium (8.4-10.2) mg/dL Phosphorus (2.5-4.5) mg/dL Total Bilirubin (0.2-1.3) mg/dL AST (17-59) U/L ALT (21-72) U/L Alkaline Phosphatase (38-126) U/L Total Protein (6.3-8.2) g/dL Albumin (3.5-5.0) g/dL Microbiology - Last 24 Hours (Table) 03/16/18 21:16 Blood Culture - Preliminary Blood No Growth after 48 hours 03/17/18 13:00 Gram Stain - Preliminary Knee - Left Wound Culture - Preliminary Gram Neg Bacilli Sandra albicans Assessment and Plan Plan: Assessment: #1. Altered mental status, hypotension, lactic acidosis, rule out sepsis #2. Hypoglycemia #3. Draining wound on the left stump, present on admission #4. Decubitus ulcer on coccyx, stage III, with slough in the wound bed, present on admission #5. Elevated transaminases #6. Bilateral pleural effusions #7. End-stage renal disease, on hemodialysis, patient had previously been on peritoneal dialysis, however switched to hemodialysis in view of malfunctioning peritoneal catheter #8. Diabetes mellitus type 2, with diabetic retinopathy #9. Hypertention, hyperlipidemia #10. History of left above-knee amputation in January 2018, for osteomyelitis of left lower extremity #11. Chronic macrocytic anemia #12. History of migraines Plan: Patient's oral intake remains extremely poor, he is persistently hypoglycemic, 10% dextrose has been increased to 40 ML per hour, urge oral intake, maintain aspiration precautions, continue with current antibiotic coverage, wean levo fed , patient has not been able to consciously take his oral pills in view of lethargy, serum cortisol is 26, we will start the patient on hydrocortisone 100 mg every 8 hours and see if we can wean the levofed off. Overall prognosis is extremely poor, patient had a prolonged and complicated clinical course related to his end-stage renal disease, osteomyelitis of left lower extremity requiring amputation, chronic wounds, sepsis. Patient has been reportedly depressed, has not been eating. He may require placement of a PEG tube. We'll speak to patient's father today, in regards to CODE STATUS, further direction in terms of patient's care. Overall prognosis is poor given patient's multiple comorbidities, general medical debility, sepsis. Continue to follow I performed a history & physical examination of the patient and discussed their management with my nurse practitioner, Neha Franklin. I reviewed the nurse practitioner's note and agree with the documented findings and plan of care. Lung sounds are positive for diminished at the bases. The findings and the impression was discussed with the patient. I attest to the documentation by the nurse practitioner. Time with Patient: Greater than 30
[2018-03-19] MEDS: PIPERACILLIN-TAZOBACTAM 3.375 GM in SODIUM CHLORIDE 0.9% 100 ML IVPB SCH (10:15)
[2018-03-19] MEDS: SODIUM BICARBONATE TAB 650 MG TAB PO SCH ×2 (10:23→21:13)
[2018-03-19] MEDS: HYDROCORTISONE SUCCINATE 100 MG/2 ML VIAL IV SCH ×3 (10:30→23:48)
[2018-03-19 12:07] LABS: Glucose,Whole Blood 86 mg/dL (75-99)
[2018-03-19] MEDS: COLLAGENASE 250 UNIT/GM OINTMENT 30 GM TUBE TOPICAL SCH (12:09)
[2018-03-19] MEDS: METOCLOPRAMIDE 5 MG/ML 2 ML VIAL IVP SCH ×3 (12:12→23:47)
[2018-03-19] MEDS: SODIUM CHLORIDE 0.9% 500 ML 500 ML IV SCH (14:06)
[2018-03-19 14:30] VITALS: BMI 24.4
[2018-03-19 17:12] LABS: Glucose,Whole Blood 97 mg/dL (75-99)
--- NOTE | 2018-03-19 17:47 | P.PN ---
Subjective Progress Note Date: 03/19/18 Principal diagnosis: Sacral decubitus ulcer Patient remains lethargic. Levophed requirement slightly decreased. Patient is afebrile. White blood cell count 12. Liver enzymes remain elevated. Objective - Vital Signs Vital signs: Vital Signs Temp 98.2 F 03/19/18 12:00 Pulse 92 03/19/18 12:00 Resp 22 03/19/18 12:00 BP 97/70 03/19/18 12:00 Pulse Ox 98 03/19/18 12:00 Intake & Output 03/18/18 03/19/18 03/19/18 18:59 06:59 18:59 Intake Total 712.765 2211.813 475.125 Output Total 0 1 Balance 808.592 2953.813 474.125 Weight 68.7 kg 68.7 kg Intake: IV 460 590 270 Dextrose 10% in Water 500 200 420 240 ml In Empty Bag 1 bag @ 40 mls/hr IV .[id number] [facility] Rx#:[id number] Piperacillin-Tazobactam 3 100 100 .375 gm In Sodium Chloride 0.9% 100 ml @ 25 mls/hr IVPB Q12HR [facility] Rx #:[id number] Sodium Chloride 0.9% 500 160 70 30 ml 500 ml @ 20 mls/hr IV .Q24H [facility] Rx#:[id number] Intake, IV Titration 234.563 595.813 105.125 Amount Norepinephrine 4 mg In 234.563 195.813 105.125 Sodium Chloride 0.9% 250 ml @ Titrate IV .Q0M [facility] Rx#:[id number] Potassium Chloride 10 meq 400 In Water For Injection 1 100ml.bag @ 100 mls/hr IVPB Q1H [facility] Rx#: [id number] Oral 90 100 Output: Urine 0 0 Emesis 1 - Exam Abdomen: Distended, mild diffuse tenderness, no localized right upper quadrant tenderness Sacrum: Decubitus ulcer without significant changes, mild tenderness, some seropurulent drainage noted - Labs CBC & Chem 7: 03/19/18 05:30 03/19/18 05:30 Labs: Abnormal Lab Results - Last 24 Hours (Table) 03/18/18 03/18/18 03/18/18 Range/Units 17:48 18:58 20:10 WBC (3.8-10.6) k/uL RBC (4.30-5.90) m/uL Hgb (13.0-17.5) gm/dL Hct (39.0-53.0) % MCV (80.0-100.0) fL RDW (11.5-15.5) % Plt Count (150-450) k/uL Neutrophils # (Manual) (1.3-7.7) k/uL Nucleated RBCs (0-0) /100 WBC Sodium (137-145) mmol/L Potassium 3.3 L (3.5-5.1) mmol/L Carbon Dioxide (22-30) mmol/L BUN (9-20) mg/dL Creatinine (0.66-1.25) mg/dL Glucose (74-99) mg/dL POC Glucose (mg/dL) 107 H 102 H (75-99) mg/dL Calcium (8.4-10.2) mg/dL Phosphorus (2.5-4.5) mg/dL Total Bilirubin (0.2-1.3) mg/dL AST (17-59) U/L ALT (21-72) U/L Alkaline Phosphatase (38-126) U/L Total Protein (6.3-8.2) g/dL Albumin (3.5-5.0) g/dL 03/19/18 03/19/18 03/19/18 Range/Units 04:57 05:30 05:30 WBC 12.0 H (3.8-10.6) k/uL RBC 2.69 L (4.30-5.90) m/uL Hgb 9.1 L (13.0-17.5) gm/dL Hct 27.9 L (39.0-53.0) % MCV 103.9 H (80.0-100.0) fL RDW 23.4 H (11.5-15.5) % Plt Count 36 L (150-450) k/uL Neutrophils # (Manual) 10.90 H (1.3-7.7) k/uL Nucleated RBCs 6 H (0-0) /100 WBC Sodium 131 L (137-145) mmol/L Potassium (3.5-5.1) mmol/L Carbon Dioxide 14 L (22-30) mmol/L BUN <2 L (9-20) mg/dL Creatinine 1.61 H (0.66-1.25) mg/dL Glucose 171 H (74-99) mg/dL POC Glucose (mg/dL) 69 L (75-99) mg/dL Calcium 7.4 L (8.4-10.2) mg/dL Phosphorus 1.8 L (2.5-4.5) mg/dL Total Bilirubin 2.5 H (0.2-1.3) mg/dL AST 1368 H (17-59) U/L ALT 352 H (21-72) U/L Alkaline Phosphatase 351 H (38-126) U/L Total Protein 4.2 L (6.3-8.2) g/dL Albumin 1.5 L (3.5-5.0) g/dL 03/19/18 Range/Units 08:03 WBC (3.8-10.6) k/uL RBC (4.30-5.90) m/uL Hgb (13.0-17.5) gm/dL Hct (39.0-53.0) % MCV (80.0-100.0) fL RDW (11.5-15.5) % Plt Count (150-450) k/uL Neutrophils # (Manual) (1.3-7.7) k/uL Nucleated RBCs (0-0) /100 WBC Sodium (137-145) mmol/L Potassium (3.5-5.1) mmol/L Carbon Dioxide (22-30) mmol/L BUN (9-20) mg/dL Creatinine (0.66-1.25) mg/dL Glucose (74-99) mg/dL POC Glucose (mg/dL) 107 H (75-99) mg/dL Calcium (8.4-10.2) mg/dL Phosphorus (2.5-4.5) mg/dL Total Bilirubin (0.2-1.3) mg/dL AST (17-59) U/L ALT (21-72) U/L Alkaline Phosphatase (38-126) U/L Total Protein (6.3-8.2) g/dL Albumin (3.5-5.0) g/dL Microbiology - Last 24 Hours (Table) 03/17/18 13:10 Gram Stain - Final Buttock Wound Culture - Final Proteus spec Sandra albicans 03/17/18 13:00 Gram Stain - Preliminary Knee - Left Wound Culture - Preliminary Proteus mirabilis Sandra albicans 03/16/18 21:16 Blood Culture - Preliminary Blood No Growth after 48 hours Assessment and Plan (1) Sacral decubitus ulcer Narrative/Plan: No change in CODE STATUS at this time. We'll tentatively planned bedside debridement given the patient's relative instability. Patient's prognosis particularly as it pertains to this decubitus ulcer however remains poor. Will discuss further with the patient's father. Current Visit: Yes Status: Acute Code(s): L89.159 - PRESSURE ULCER OF SACRAL REGION, UNSPECIFIED STAGE SNOMED Code(s): 811002223
[2018-03-19] MEDS: cefTRIAXone 2,000 MG in SODIUM CHLORIDE 0.9% 100 ML IVPB SCH (18:46)
--- NOTE | 2018-03-19 19:56 | PN ---
PROGRESS NOTE DATE OF SERVICE: 03/19/2018 This 42-year-old gentleman who was admitted with hypotension with possible septic shock was pressor-dependent. The patient has a left AKA wound also and also significant stage III sacral decubitus. Multiple consultants, including Nephrology as well as Dr. Marsh, are following the patient closely. The patient is stuporous, slightly more alert than on admission, but still significant change in mental status, possibly secondary to sepsis and other multiple medical problems. The patient is being closely monitored at this time. Patient also had hyperglycemia. Past medical history reviewed. Review of systems could not be taken; the patient is stuporous. CURRENT MEDICATIONS: Reviewed. They include: 1. Armour 5 mg q.6 p.r.n. 2. Xanax 0.25 t.i.d. 3. Lipitor 40 mg at bedtime. 4. Coreg 3.125 mg b.i.d. 5. Rocephin 2 grams IV daily. 6. Santyl 1 application daily. 7. Aranesp. 8. Depakote. 9. Pepcid. 10.Solu-Cortef 100 mg IV q.8. 11.ProAmatine 10 mg t.i.d. 12.Levophed drip, which was stopped. 13.Protonix. 14.Restoril p.r.n. PHYSICAL EXAMINATION: Patient is stuporous. Pulse 92, blood pressure 97/70, respiration 22, temperature 98.2, pulse ox 98% on room air. HEENT: Conjunctivae normal. Oral mucosa moist. NECK: No jugular venous distention. No carotid bruit. No lymph node enlargement. CARDIOVASCULAR SYSTEM: S1, S2 muffled. RESPIRATORY SYSTEM: Breath sounds diminished at the bases. A few scattered rhonchi and crackles. ABDOMEN: Soft, obese, non-tender. LEGS: Status post above-knee amputation. Sacral decubitus. Amputation stump also has significant infection present. NERVOUS SYSTEM: Diffusely weak. LABS: WBC 12, hemoglobin 9.1, sodium 131. Otherwise, AST is 1368, ALT 352, which is slightly improving at this time. ASSESSMENT: 1. Hypotension with possible septic shock, pressor-dependent. 2. Left above-knee amputation stump wound, present on admission. 3. Stage III sacral wound with abscess and secondary cellulitis, present on admission. 4. Chronic end-stage renal disease, stage IV, on hemodialysis previous peritoneal dialysis malfunctioning. Peritoneal dialysis switched to hemodialysis. 5. Anemia, macrocytic, secondary to renal failure. 6. Hypokalemia. 7. Hypoglycemia. 8. Elevated liver function tests, possibly hepatitis. 9. Hypertension. 10.Bilateral pleural effusion. RECOMMENDATIONS AND DISCUSSION: I recommend to continue current medications, continue with the monitoring, symptomatic treatment. Continue the antibiotics. Monitor blood pressure closely. Prognosis extremely guarded because of multiple complex medical issues. Further recommendations to follow. See orders for further details. Will follow the cultures. Rest of the medications MMODL / IJN: [id number] / MTDD
[2018-03-19] MEDS: SERTRALINE 50 MG TAB PO SCH (21:13)
[2018-03-19] MEDS: ATORVASTATIN 40 MG TAB PO SCH (21:13)
[2018-03-19 21:27] LABS: Glucose,Whole Blood 145 mg/dL (75-99)
[2018-03-19] MEDS ORDERED: NOREPINEPHRINE 16 MG in SODIUM CHLORIDE 0.9% 250 ML IV SCH (22:30)
--- NOTE | 2018-03-19 23:53 | PN ---
PROGRESS NOTE DATE OF SERVICE: 03/19/2018. REASON FOR FOLLOWUP VISIT: Infected sacral pressure ulcer. INTERVAL HISTORY: The patient is currently afebrile. He is breathing comfortably. slight stable. No nausea or vomiting, no abdominal pain. No diarrhea. EXAMINATION: Blood pressure 97/57, pulse of 95, temperature 98. He is 100% on 2 L nasal cannula. General description is a middle-aged male lying in bed in no distress. Respiratory system: Unlabored breathing. Clear to auscultation anteriorly. HEART: S1, S2. Regular rate and rhythm. Wound is currently dressed up. No obvious drainage on the dressing. LABS: Hemoglobin 9.1, white count 12.3 with a BUN of 10, creatinine 1.61. DIAGNOSTIC IMPRESSION AND PLAN: Patient with infected sacral pressure ulcer. Local wound culture currently showing a Proteus Sandra albicans. Zosyn will be switched over to Rocephin. Continue with vancomycin. Local care to the sacral wound to continue with Santyl and continue supportive care. MMODL / IJN: [id number] /
--- NOTE | 2018-03-20 01:38 | PCN ---
PROCEDURE NOTE PROCEDURE PERFORMED: Right femoral vein triple-lumen catheter. PREOP DIAGNOSIS: Administration of fluids and pressors. POSTOP DIAGNOSIS: Administration of fluids and pressors. TRIPLE LUMEN CATHETER PLACEMENT: Indication: Hemodynamic monitoring/Intravenous access. A time-out was completed verifying correct patient, procedure, site, positioning, and implant(s) or special equipment if applicable. The patient was placed in a dependent position appropriate for triple lumen catheter placement based on the vein to be cannulated. The patient's right groin was prepped and draped in sterile fashion. 1% Lidocaine was used to anesthetize the surrounding skin area. A triple lumen 9F Cordis catheter was introduced into the common femoral vein using Seldinger technique. The catheter was threaded smoothly over the guide wire and appropriate blood return was obtained. Each lumen of the catheter was evacuated of air and flushed with sterile saline. The catheter was then sutured in place to the skin and a sterile dressing applied. Perfusion to the extremity distal to the point of catheter insertion was checked and found to be adequate. There was good blood return from all 3 ports. The catheter was sutured in place. There was no immediate complication. No chest x-ray was needed. Sterile dressing was applied by the nurse. The patient tolerated procedure well. MMODL / IJN: [id number] /
[2018-03-20 02:27] LABS: Glucose,Whole Blood 148 mg/dL (75-99)
[2018-03-20] MEDS: HEPARIN SODIUM,PORCINE 5,000 UNIT/ML 1 ML VIAL SQ SCH ×3 (03:56→21:16)
[2018-03-20 04:11] LABS: Anisocytosis Moderate; Hypochromasia Moderate; MCH 33.4 pg (25.0-35.0); MCHC 32.7 g/dL (31.0-37.0); MCV 102.1 fL (80.0-100.0); Macrocytosis Marked; Mean Platelet Volume 11.4; Poikilocytosis Moderate; RBC 2.26 m/uL (4.30-5.90); RDW 23.2 % (11.5-15.5)
[2018-03-20 04:22] LABS: HGB 7.5 gm/dL (13.0-17.5); Platelet Count 22 k/uL (150-450)
[2018-03-20 05:28] LABS: Albumin 1.4 g/dL (3.5-5.0); Calcium 7.3 mg/dL (8.4-10.2); Magnesium 1.9 mg/dL (1.6-2.3); Phosphorus 4.2 mg/dL (2.5-4.5); Potassium 4.4 mmol/L (3.5-5.1); Total Bilirubin 2.4 mg/dL (0.2-1.3); Total Protein 3.9 g/dL (6.3-8.2)
[2018-03-20] MEDS: FAMOTIDINE 20 MG TAB PO SCH (06:15)
[2018-03-20] MEDS: DIVALPROEX 250 MG TABLET.DR PO SCH ×2 (06:15→17:44)
[2018-03-20] MEDS: METOCLOPRAMIDE 5 MG/ML 2 ML VIAL IVP SCH ×3 (06:15→17:45)
[2018-03-20 06:57] LABS: Band Neutrophils % 17 %; Lymphocytes # (M) 1.34 k/uL (1.0-4.8); Monocytes # (M) 0.54 k/uL (0-1.0); Neutrophils % (M) 69 %; Nucleated Red Blood Cells 9 /100 WBC (0-0); Total Cells Counted 200; WBC 13.4 k/uL (3.8-10.6)
[2018-03-20 06:59] LABS: Anisocytosis (M) Present; Poikilocytosis (M) Present; Polychromasia Present
[2018-03-20 07:24] LABS: Glucose,Whole Blood 119 mg/dL (75-99)
[2018-03-20] MEDS: CARVEDILOL 3.125 MG TAB PO SCH ×2 (07:56→17:44)
[2018-03-20] MEDS: PANTOPRAZOLE 40 MG TABLET PO SCH (08:07)
[2018-03-20] MEDS: SODIUM BICARBONATE TAB 650 MG TAB PO SCH ×2 (08:07→21:17)
[2018-03-20] MEDS: HYDROCORTISONE SUCCINATE 100 MG/2 ML VIAL IV SCH ×2 (08:07→15:25)
[2018-03-20] MEDS: MIDODRINE 5 MG TAB PO SCH ×3 (08:07→17:44)
--- NOTE | 2018-03-20 08:08 | XR ---
EXAMINATION TYPE: XR chest 1V DATE OF EXAM: 03/20/2018 COMPARISON: 05/19/2017 HISTORY: Shortness of breath. TECHNIQUE: Single frontal view of the chest is obtained. FINDINGS: There is redemonstration of mild pulmonary vascular congestion throughout with right infra hilar airspace opacity and pleural effusion slightly worsening. Haziness of the left costophrenic ang le likely relates to atelectasis. Cardia mediastinal silhouette is mildly enlarged. Dual lead modalit ies catheter terminates in the right atrium. No sizable pneumothorax. Osseous structures are grossly intact. IMPRESSION: Redemonstration of mild pulmonary vascular congestion and bibasilar atelectasis with sli ght worsening of the right basilar airspace disease and trace right pleural effusion. Findings may be related to cardiogenic or noncardiogenic fluid overload.
[2018-03-20] MEDS: COLLAGENASE 250 UNIT/GM OINTMENT 30 GM TUBE TOPICAL SCH (08:32)
--- NOTE | 2018-03-20 10:49 | P.PN ---
Subjective Progress Note Date: 03/20/18 Principal diagnosis: Altered mental status, hypotension, lactic acidosis, rule out sepsis This is a 42-year-old patient with past medical history of end-stage renal disease on hemodialysis, diabetes mellitus type 2, diabetic retinopathy, hypertension, hyperlipidemia, left eye cataract, recent left AKA related to left lower leg diabetic ulcers, infection, and osteomyelitis, who presented to the hospital per EMS on 03/16/2018 at 11:00 in the morning for evaluation of hypotension, lethargy, and hypoglycemia. Patient did his usual dialysis treatment, and angiogram reportedly runs a low blood pressure, usually with SBP in the 80s, this time blood pressure was noted to be around 70. He denied any fever or chills, no difficulty breathing, no chest pain no nausea, no vomiting, no diarrhea. Patient does have a chronic wound on his left stump. Lab work did not show any evidence of leukocytosis, the CBC is 6.1, hemoglobin is 7.2 oh evidence of bleeding, troponin was 0.014, serum sodium was 133, potassium is 3.1 , chloride is 96, BUN is 4, creatinine is 2.03. His serum glucose was 36, she was treated with 1 amp of D50 in the emergency department, plasma lactic acid was 5.7, LFTs were elevated, the AST was 1046, ALT was 231, alkaline phosphatase was 415, total CK was 230, lipase was 29, albumin was 1.6. Chest x- ray showed small basilar pleural effusions and mild atelectasis. EKG showed normal sinus rhythm with nonspecific ST abnormality. Brain CT showed no acute intracranial process, showed right mastoid sinus and middle ear cavity opacification. CT of abdomen and pelvis showed cardiomegaly with pleural effusions and basilar consolidation and atelectasis. Moderate amount of ascites fluid, large gallbladder suggestive of some gallbladder dysfunction, was no evidence of free air, there was extensive vessel calcification. No retroperitoneal adenopathy, no bony destructive process. Patient given a IV fluid bolus of 0.9 normal saline, and his maintenance IV fluids at 75 ML per hour with subsequent improvement of his blood pressure, he was started on Midrin at 5 mg 3 times daily. Started on Zosyn and vancomycin for empiric antibiotic coverage, blood cultures and urine cultures were collected and sent. He was started on small dose of Levofed. Currently his blood pressure is 93/ 53, patient is afebrile, pulse ox on 2 L per nasal cannula is 98%, remains on small dose of Levophed, currently at 1 jasvir per minute. Patient has a draining wound on his left stump, he has a stage III on his coccyx present on admission, with yellow slough off in the wound bed. ID service has been consult, surgery has been consulted for left stump wound. On 03/18/2018 patient seen in follow-up in the intensive care unit, he is somnolent, but easily arousable to verbal stimuli, more conversant on today's exam. Denies any acute distress, yesterday we increased the patient's Midrin to 10 mg 3 times a day. He remains on vasopressor support, Levothroid is currently infusing at a rate of 3 mics per minute, maintenance IV fluid is 0.9 normal saline at a rate of 20 ML per hour. Last eye patient did have her hemodialysis treatment, and apparently patient was very hypotensive, and levo fed be increased to 8 mics per minute, and patient could not finish a whole treatment. Cultures remain negative thus far, chest x-ray shows mild changes of congestive heart failure. Denies any shortness of breath or chest pain, room air pulse ox is 96%, he is afebrile, today's lab work shows WBC of 13.7, hemoglobin is 9.6, sodium is 136, potassium is 3.6, CO2 is 15, BUN history and creatinine is 2.19. Liver enzymes are trending up, total bili is 2.7, AST is 2916, ALT is 494, alkaline phosphatase is 390. Patient is to have frequent episodes of hypoglycemia, and requiring treatment with 50% dextrose. Appetite remains very poor. We will place the patient on 10% dextrose at a rate of 20 ML per hour. D service was consulted local wound care was recommended to the sacral wound with Santyl and moist dressing, and left AKA stump to be Dry. Antibiotic coverage includes Zosyn and vancomycin. No surgery has been consulted for evaluation and debridement of the wound and deep cultures. Nephrology is following, and patient will have another hemodialysis treatment today. On 03/19/2018 patient seen in follow-up in the intensive care unit, remains lethargic, but easily arousable, confused, mumbling. Afebrile, still requiring vasopressor support, currently levo fed is at 5 mics per minute. Did have hemodialysis yesterday. Room air pulse ox is 98%, continues on Midrin at 10 mg 3 times a day, however patient has not been able to consistently take his oral medications, his appetite has been extremely poor, his oral intake is poor. He needs to be hypoglycemic, requiring 50% dextrose, his 10% dextrose infusion was increased to 40 ML per hour. Derrek biology has been reviewed, wound culture in his left stump showed gram-negative bacilli, blood culture and coccyx wound culture remain negative thus far. Patient was evaluated by general surgery for possible debridement of the sacral wound, and patient is a poor surgical candidate. Vascular surgery is following in regards to the left stump wound. Today's labs have been reviewed, WBCs 12.0, hemoglobin is 9.1, sodium is 131, potassium is 4.2, chloride is 99, B1 is less than 2, creatinine is 1.6. Patient will not have hemodialysis today, his random serum cortisol was 26.7, has been persistently hypotensive, although patient chronically runs a low blood pressure in the 80s. Patient has been lethargic, reportedly depressed, he has been having multiple complications and hospitalizations related to his end-stage renal disease, competitions related to osteomyelitis of the left lower extremity, clinical course has been prolonged and complicated. On 03/20/2018 patient seen in follow-up in the intensive care unit, he is lethargic, opens his eyes, but mumbles incoherently. Currently on 2 L per nasal cannula his pulse ox is 96%, patient has been noted to be hypothermic, with a temperature of 95.5 axillary, he is currently under warming blanket. His current IV fluids include D10 at 40 ML per hour, levo fed is currently off. Antibiotic coverage includes Rocephin and vancomycin, cultures have been reviewed, left knee stump wound culture showed Proteus mirabilis, and sacral wound culture was positive for Proteus mirabilis. Blood cultures negative. Today's labs have been reviewed, WBC is 13.4, hemoglobin is 7.5, sodium is 132, potassium is 4.4, chloride is 99, CO2 is 12, B1 is 30, creatinine is 2.19. Patient did not have hemodialysis treatment yesterday, he is anticipated to have one today. His liver enzymes are improving. GI consultation has been noted. Patient remains lethargic, and his oral intake has been extremely poor, spoke to the patient's father yesterday who is the decision maker, was to keep the patient is full code, and place a PEG tube if necessary. GI service is already on, we will request for them to put in a PEG tube to maintain patient's nutritional needs. Today's chest x-ray has been reviewed by Dr. Marsh, and showed mild pulmonary vessel congestion and bibasilar atelectasis slight worsening of the right basilar airspace disease and trace right pleural effusion. To replace the right femoral triple-lumen catheter for IV fluids and medications. Objective - Vital Signs Vital signs: Vital Signs Temp 95.1 F L 03/20/18 09:30 Pulse 71 03/20/18 09:30 Resp 21 03/20/18 09:30 BP 94/44 03/20/18 09:30 Pulse Ox 93 L 03/20/18 09:30 Intake & Output 03/19/18 03/20/18 03/20/18 18:59 06:59 18:59 Intake Total 778.875 586.964 138.643 Output Total 1 0 0 Balance 777.875 586.964 138.643 Weight 68.7 kg 73.4 kg Intake: IV 540 585 135 Dextrose 10% in Water 500 480 520 120 ml In Empty Bag 1 bag @ 40 mls/hr IV .[id number] KHADAR Rx#:[id number] Sodium Chloride 0.9% 500 60 65 15 ml 500 ml @ 20 mls/hr IV .Q24H KHADAR Rx#:[id number] Intake, IV Titration 138.875 1.964 3.643 Amount Norepinephrine 16 mg In 1.964 3.643 Sodium Chloride 0.9% 250 ml @ Titrate IV .Q0M KHADAR Rx#:[id number] Norepinephrine 4 mg In 138.875 Sodium Chloride 0.9% 250 ml @ Titrate IV .Q0M KHADAR Rx#:[id number] Oral 100 Output: Urine 0 0 0 Emesis 1 - Exam GENERAL EXAM: 42-year-old white male, chronically ill-looking appears much older than stated age somnolent, but lethargic, moans, mumbles incoherently HEAD: Normocephalic/atraumatic. EYES: Normal reaction of pupils, equal size. Conjunctiva pink, sclera white. NOSE: Clear with pink turbinates. THROAT: No erythema or exudates. NECK: No masses, no JVD, no thyroid enlargement, no adenopathy. CHEST: No chest wall deformity. Symmetrical expansion. Right upper chest Benito cath for hemodialysis LUNGS: Equal air entry with no crackles, wheeze, rhonchi or dullness. Diminished breath sounds at the bases CVS: Regular rate and rhythm, normal S1 and S2, no gallops, no murmurs, no rubs ABDOMEN: Soft, nontender. No hepatosplenomegaly, normal bowel sounds, no guarding or rigidity. EXTREMITIES: No clubbing, no edema, no cyanosis, 1+ pedal pulse in the right lower extremity, left AKA stump wound, draining, and there is yellow slough in the wound bed. Stage III on coccyx with slough in the wound bed MUSCULOSKELETAL: Muscle strength and tone normal. SPINE: No scoliosis or deformity SKIN: No rashes CENTRAL NERVOUS SYSTEM: Somnolent, opens eyes to voice, but mumbles. - Labs CBC & Chem 7: 03/20/18 04:00 03/20/18 04:00 Labs: Abnormal Lab Results - Last 24 Hours (Table) 03/19/18 03/20/18 03/20/18 Range/Units 21:25 02:14 04:00 WBC 13.4 H (3.8-10.6) k/uL RBC 2.26 L (4.30-5.90) m/uL Hgb 7.5 L D (13.0-17.5) gm/dL Hct 23.0 L (39.0-53.0) % MCV 102.1 H (80.0-100.0) fL RDW 23.2 H (11.5-15.5) % Plt Count 22 L (150-450) k/uL Neutrophils # (Manual) 11.50 H (1.3-7.7) k/uL Nucleated RBCs 9 H (0-0) /100 WBC Sodium (137-145) mmol/L Carbon Dioxide (22-30) mmol/L BUN (9-20) mg/dL Creatinine (0.66-1.25) mg/dL Glucose (74-99) mg/dL POC Glucose (mg/dL) 145 H 148 H (75-99) mg/dL Calcium (8.4-10.2) mg/dL Total Bilirubin (0.2-1.3) mg/dL AST (17-59) U/L ALT (21-72) U/L Alkaline Phosphatase (38-126) U/L Total Protein (6.3-8.2) g/dL Albumin (3.5-5.0) g/dL 03/20/18 03/20/18 Range/Units 04:00 06:59 WBC (3.8-10.6) k/uL RBC (4.30-5.90) m/uL Hgb (13.0-17.5) gm/dL Hct (39.0-53.0) % MCV (80.0-100.0) fL RDW (11.5-15.5) % Plt Count (150-450) k/uL Neutrophils # (Manual) (1.3-7.7) k/uL Nucleated RBCs (0-0) /100 WBC Sodium 132 L (137-145) mmol/L Carbon Dioxide 12 L (22-30) mmol/L BUN 3 L (9-20) mg/dL Creatinine 2.19 H (0.66-1.25) mg/dL Glucose 150 H (74-99) mg/dL POC Glucose (mg/dL) 119 H (75-99) mg/dL Calcium 7.3 L (8.4-10.2) mg/dL Total Bilirubin 2.4 H (0.2-1.3) mg/dL AST 907 H (17-59) U/L ALT 276 H (21-72) U/L Alkaline Phosphatase 272 H (38-126) U/L Total Protein 3.9 L (6.3-8.2) g/dL Albumin 1.4 L (3.5-5.0) g/dL Microbiology - Last 24 Hours (Table) 03/16/18 21:16 Blood Culture - Preliminary Blood No Growth after 72 hours 03/17/18 13:10 Gram Stain - Final Buttock Wound Culture - Final Proteus spec Sandra albicans 03/17/18 13:00 Gram Stain - Preliminary Knee - Left Wound Culture - Preliminary Proteus mirabilis Sandra albicans Assessment and Plan Plan: Assessment: #1. Altered mental status, hypotension, lactic acidosis, related to sepsis #2. Hypoglycemia, persistent, patient has poor oral intake, remains on D10 at a rate of 40 ML per hour #3. Draining wound on the left stump, present on admission #4. Decubitus ulcer on coccyx, stage III, with slough in the wound bed, present on admission #5. Elevated transaminases #6. Bilateral pleural effusions #7. End-stage renal disease, on hemodialysis, patient had previously been on peritoneal dialysis, however switched to hemodialysis in view of malfunctioning peritoneal catheter #8. Diabetes mellitus type 2, with diabetic retinopathy #9. Hypertention, hyperlipidemia #10. History of left above-knee amputation in January 2018, for osteomyelitis of left lower extremity #11. Chronic macrocytic anemia #12. History of migraines Plan: It is chest x-ray has been reviewed by Dr. Dr. Marsh, showed mild pulmonary vessel congestion and bibasilar atelectasis, patient is anticipated to have hemodialysis treatment today, Levophed has been weaned off, patient has been noted to be hypothermic, he is currently under warming blankets, his mentation is a bit more lethargic today, he opens his eyes, but her to understand him. Patient's oral intake remains practically 0, we will request GI service to place a PEG tube. Patient remains a full code, and his father was to proceed with a full CODE STATUS and a PEG tube placement if necessary. We'll continue current antibiotics, ID service is following. Patient is a poor surgical candidate for sacral wound debridement. Overall prognosis is extremely guarded. We'll continue to follow I performed a history & physical examination of the patient and discussed their management with my nurse practitioner, Neha Franklin. I reviewed the nurse practitioner's note and agree with the documented findings and plan of care. Lung sounds are positive for diminished at the bases. The findings and the impression was discussed with the patient. I attest to the documentation by the nurse practitioner. Time with Patient: Greater than 30
--- NOTE | 2018-03-20 11:10 | P.PN ---
Subjective Progress Note Date: 03/20/18 Principal diagnosis: Sacral decubitus ulcer Patient remains lethargic. He is hypothermic. Remains on pressors. Family discussion apparently took place yesterday. Patient remains full code. Family considering PEG tube placement. Objective - Vital Signs Vital signs: Vital Signs Temp 95.5 F L 03/20/18 10:30 Pulse 80 03/20/18 10:30 Resp 24 03/20/18 10:30 BP 82/44 03/20/18 10:30 Pulse Ox 96 03/20/18 10:30 Intake & Output 03/19/18 03/20/18 03/20/18 18:59 06:59 18:59 Intake Total 778.875 586.964 138.643 Output Total 1 0 0 Balance 777.875 586.964 138.643 Weight 68.7 kg 73.4 kg Intake: IV 540 585 135 Dextrose 10% in Water 500 480 520 120 ml In Empty Bag 1 bag @ 40 mls/hr IV .[id number] KHADAR Rx#:[id number] Sodium Chloride 0.9% 500 60 65 15 ml 500 ml @ 20 mls/hr IV .Q24H [facility]HADAR Rx#:[id number] Intake, IV Titration 138.875 1.964 3.643 Amount Norepinephrine 16 mg In 1.964 3.643 Sodium Chloride 0.9% 250 ml @ Titrate IV .Q0M KHADAR Rx#:[id number] Norepinephrine 4 mg In 138.875 Sodium Chloride 0.9% 250 ml @ Titrate IV .Q0M KHADAR Rx#:[id number] Oral 100 Output: Urine 0 0 0 Emesis 1 - Exam Abdomen: Soft, nondistended, nontender, abdominal wall edema noted Sacral wound with serosanguineous drainage, nontender, necrotic skin and subcu anus that noted - Labs CBC & Chem 7: 03/20/18 04:00 03/20/18 04:00 Labs: Abnormal Lab Results - Last 24 Hours (Table) 03/19/18 03/20/18 03/20/18 Range/Units 21:25 02:14 04:00 WBC 13.4 H (3.8-10.6) k/uL RBC 2.26 L (4.30-5.90) m/uL Hgb 7.5 L D (13.0-17.5) gm/dL Hct 23.0 L (39.0-53.0) % MCV 102.1 H (80.0-100.0) fL RDW 23.2 H (11.5-15.5) % Plt Count 22 L (150-450) k/uL Neutrophils # (Manual) 11.50 H (1.3-7.7) k/uL Nucleated RBCs 9 H (0-0) /100 WBC Sodium (137-145) mmol/L Carbon Dioxide (22-30) mmol/L BUN (9-20) mg/dL Creatinine (0.66-1.25) mg/dL Glucose (74-99) mg/dL POC Glucose (mg/dL) 145 H 148 H (75-99) mg/dL Calcium (8.4-10.2) mg/dL Total Bilirubin (0.2-1.3) mg/dL AST (17-59) U/L ALT (21-72) U/L Alkaline Phosphatase (38-126) U/L Total Protein (6.3-8.2) g/dL Albumin (3.5-5.0) g/dL 03/20/18 03/20/18 Range/Units 04:00 06:59 WBC (3.8-10.6) k/uL RBC (4.30-5.90) m/uL Hgb (13.0-17.5) gm/dL Hct (39.0-53.0) % MCV (80.0-100.0) fL RDW (11.5-15.5) % Plt Count (150-450) k/uL Neutrophils # (Manual) (1.3-7.7) k/uL Nucleated RBCs (0-0) /100 WBC Sodium 132 L (137-145) mmol/L Carbon Dioxide 12 L (22-30) mmol/L BUN 3 L (9-20) mg/dL Creatinine 2.19 H (0.66-1.25) mg/dL Glucose 150 H (74-99) mg/dL POC Glucose (mg/dL) 119 H (75-99) mg/dL Calcium 7.3 L (8.4-10.2) mg/dL Total Bilirubin 2.4 H (0.2-1.3) mg/dL AST 907 H (17-59) U/L ALT 276 H (21-72) U/L Alkaline Phosphatase 272 H (38-126) U/L Total Protein 3.9 L (6.3-8.2) g/dL Albumin 1.4 L (3.5-5.0) g/dL Microbiology - Last 24 Hours (Table) 03/16/18 21:16 Blood Culture - Preliminary Blood No Growth after 72 hours 03/17/18 13:10 Gram Stain - Final Buttock Wound Culture - Final Proteus spec Sandra albicans 03/17/18 13:00 Gram Stain - Preliminary Knee - Left Wound Culture - Preliminary Proteus mirabilis Sandra albicans Assessment and Plan (1) Sacral decubitus ulcer Narrative/Plan: Patient remains critically ill. Would not be stable currently for endoscopic procedure in my opinion. Will continue to follow the patient's decubitus ulcer and will plan bedside debridement. Current Visit: Yes Status: Acute Code(s): L89.159 - PRESSURE ULCER OF SACRAL REGION, UNSPECIFIED STAGE SNOMED Code(s): 746601310
[2018-03-20 12:54] LABS: Glucose,Whole Blood 153 mg/dL (75-99)
[2018-03-20 15:35] LABS: Glucose,Whole Blood 57 mg/dL (75-99)
[2018-03-20] MEDS ORDERED: DEXTROSE 50%-WATER 50 ML SYRINGE IVP ONE (15:55)
[2018-03-20] MEDS ORDERED: DEXTROSE 10% IN WATER 1,000 ML in EMPTY BAG 1 BAG IV SCH (16:30)
[2018-03-20 16:42] LABS: Glucose,Whole Blood 182 mg/dL (75-99)
[2018-03-20 16:45] LABS: Glucose,Whole Blood 199 mg/dL (75-99)
[2018-03-20 17:27] LABS: Glucose,Whole Blood 194 mg/dL (75-99)
[2018-03-20] MEDS: cefTRIAXone 2,000 MG in SODIUM CHLORIDE 0.9% 100 ML IVPB SCH (17:40)
[2018-03-20] MEDS: ATORVASTATIN 40 MG TAB PO SCH (21:16)
[2018-03-20] MEDS: SERTRALINE 50 MG TAB PO SCH (21:17)
[2018-03-20 23:17] LABS: Glucose,Whole Blood 176 mg/dL (75-99)
--- NOTE | 2018-03-21 00:26 | PN ---
PROGRESS NOTE DATE OF SERVICE: 03/20/2018 This 42-year-old gentleman who was admitted with hypotension with possible septic shock, is pressor dependent. The patient has his hemodialysis after starting the pressors. The patient had left above-knee amputation. Patient also had a sacral coccygeal wound also. The patient is being closely monitored at this time. Currently the patient is NO CODE, NO CPR, NO VENT. The cultures show Proteus, Sandra albicans and as well as Stenotrophomonas maltophilia. PAST MEDICAL HISTORY: Reviewed. REVIEW OF SYSTEMS: Could not be taken, the patient is stuporous. CURRENT MEDICATIONS: 1. [place] 5 mg q.6h p.r.n. 2. Xanax 0.5 t.i.d. 3. Lipitor 40 mg q.h.s. 4. Coreg 2.5 b.i.d. 5. Rocephin 2 gm daily. 6. Santyl 1 application daily. 7. Aranesp 40 mg daily. 8. Depakote 250 mg p.o. b.i.d. 9. Pepcid 20 mg b.i.d. 10.Heparin. 11.Solu-Cortef 100 mg IV q.h.s. 12.Reglan. 14.Narcan. 15.Zoloft. 16.Restoril. PHYSICAL EXAM: Patient is alert, oriented x3. Pulse is 101 blood pressure 106/63, respiration 20, temperature 100.2, pulse ox 94% on 2 L. HEENT: Conjunctivae normal. Oral mucosa moist. NECK: No jugular venous distention. No lymph node enlargement. CARDIOVASCULAR: S1, S2. RESPIRATORY: Diminished breath sounds at the bases. A few scattered rhonchi and crackles. ABDOMEN: Soft, nontender. LEGS: No swelling. NERVOUS SYSTEM: No focal deficits. LABS: At this time glucose 119, 194. Otherwise, the white count is, hemoglobin 7.5. ASSESSMENT: 1. Hypotension with possible septic shock, pressor dependent from left leg infection and sacral infection. The wound culture showing Proteus, Sandra albicans and Stenotrophomonas maltophilia. 2. Left [id number] amputation. 3. Wound present on admission. 4. Stage III sacral wound with abscess and secondary cellulitis present on admission. 5. Chronic kidney disease stage IV on hemodialysis. Previously on dialysis. 6. Anemia, macrocytic secondary to renal failure. 7. Hypokalemia. 8. Hypoglycemia. 9. Elevated liver functions, possibly hepatitis. 10.Hypertension. 11.Bilateral pleural effusion. RECOMMENDATIONS AND DISCUSSION: I recommend to continue current medications, continue to monitor, continue symptomatic treatment. Otherwise, continue with broad-spectrum IV antibiotics. The prognosis is guarded. Currently the patient is NO CODE. We will continue the current medications. Dr. Marsh also following the patient closely. LFTs are slightly improving at this time. Prognosis guarded. Further recommendations to follow. MMODL / IJN: [id number] / MTDD
[2018-03-21] MEDS: HYDROCORTISONE SUCCINATE 100 MG/2 ML VIAL IV SCH (02:42)
[2018-03-21] MEDS: SODIUM CHLORIDE 0.9% 500 ML 500 ML IV SCH (02:46)
[2018-03-21 05:25] LABS: Albumin 1.5 g/dL (3.5-5.0); Calcium 7.2 mg/dL (8.4-10.2); Magnesium 1.9 mg/dL (1.6-2.3); Potassium 4.4 mmol/L (3.5-5.1); Total Bilirubin 2.1 mg/dL (0.2-1.3); Total Protein 4.1 g/dL (6.3-8.2)
[2018-03-21] MEDS: METOCLOPRAMIDE 5 MG/ML 2 ML VIAL IVP SCH (05:36)
[2018-03-21] MEDS: HEPARIN SODIUM,PORCINE 5,000 UNIT/ML 1 ML VIAL SQ SCH (05:51)
[2018-03-21] MEDS: FAMOTIDINE 20 MG TAB PO SCH (05:52)
[2018-03-21] MEDS: DIVALPROEX 250 MG TABLET.DR PO SCH (05:52)
[2018-03-21 06:12] LABS: Anisocytosis Moderate; HCT 21.2 % (39.0-53.0); Hypochromasia Marked; MCH 33.3 pg (25.0-35.0); MCHC 31.4 g/dL (31.0-37.0); Macrocytosis Marked; Mean Platelet Volume 11.9; Poikilocytosis Moderate; RDW 23.5 % (11.5-15.5)
[2018-03-21 06:17] LABS: HGB 6.7 gm/dL (13.0-17.5); Platelet Count 32 k/uL (150-450)
[2018-03-21 07:28] LABS: Band Neutrophils % 18 %; Metamyelocytes % 3 %; Neutrophils % (M) 64 %; Nucleated Red Blood Cells 13 /100 WBC (0-0); Total Cells Counted 200
[2018-03-21 07:29] LABS: Lymphocytes # (M) 1.78 k/uL (1.0-4.8); Metamyelocytes # (M) 0.38 k/uL (0); Monocytes # (M) 0.38 k/uL (0-1.0); WBC 12.7 k/uL (3.8-10.6)
[2018-03-21 07:31] LABS: Polychromasia Present
--- NOTE | 2018-03-21 07:31 | XR ---
EXAMINATION TYPE: XR chest 1V DATE OF EXAM: 03/21/2018 COMPARISON: 03/20/2018 HISTORY: Chest pain TECHNIQUE: Single frontal view of the chest is obtained. FINDINGS: There is persistent pulmonary venous congestion with patchy basilar infiltrates and effusions. Contin ued cardiomegaly. Central venous line is unchanged in position. IMPRESSION: 1. Persistent features of congestive failure.
[2018-03-21] MEDS ORDERED: ATROPINE OPHTH SOLN 1% 5ML BTL SUBLINGUAL PRN ×2 (09:03→09:50)
[2018-03-21] MEDS ORDERED: MORPHINE SULFATE 4 MG/ML SYRINGE IV PRN (09:03)
[2018-03-21] MEDS ORDERED: MORPHINE SULFATE 2 MG/ML SYRINGE IV PRN (09:03)
--- NOTE | 2018-03-21 09:06 | P.PN ---
Subjective Progress Note Date: 03/21/18 Principal diagnosis: Sacral decubitus ulcer Patient remains unresponsive. He has had agonal breathing over the last 24 hours or so. Platelet levels remain low. Apparently plans are currently underway for comfort measures today. Objective - Vital Signs Vital signs: Vital Signs Temp 99.3 F 03/20/18 20:30 Pulse 98 03/21/18 06:30 Resp 29 H 03/21/18 06:30 BP 87/62 03/21/18 06:30 Pulse Ox 96 03/21/18 06:30 Intake & Output 03/20/18 03/21/18 03/21/18 18:59 06:59 18:59 Intake Total 665.608 570 Output Total 0 0 Balance 665.608 570 Weight 139.7 kg Intake: IV 495 570 Dextrose 10% in Water 500 400 440 ml In Empty Bag 1 bag @ 40 mls/hr IV .[id number] KHADAR Rx#:[id number] Sodium Chloride 0.9% 500 95 130 ml 500 ml @ 20 mls/hr IV .Q24H KHADAR Rx#:[id number] Intake, IV Titration 170.608 Amount Norepinephrine 16 mg In 70.608 Sodium Chloride 0.9% 250 ml @ Titrate IV .Q0M KHADAR Rx#:[id number] cefTRIAXone 2,000 mg In 100 Sodium Chloride 0.9% 100 ml @ 100 mls/hr IVPB Q24H KHADAR Rx#:[id number] Output: Urine 0 0 - Exam Abdomen: Soft, nontender, nondistended - Labs CBC & Chem 7: 03/21/18 04:50 03/21/18 04:50 Labs: Abnormal Lab Results - Last 24 Hours (Table) 03/20/18 03/20/18 03/20/18 Range/Units 12:27 15:31 16:11 WBC (3.8-10.6) k/uL RBC (4.30-5.90) m/uL Hgb (13.0-17.5) gm/dL Hct (39.0-53.0) % MCV (80.0-100.0) fL RDW (11.5-15.5) % Plt Count (150-450) k/uL Neutrophils # (Manual) (1.3-7.7) k/uL Metamyelocytes # (Man) (0) k/uL Nucleated RBCs (0-0) /100 WBC Sodium (137-145) mmol/L Carbon Dioxide (22-30) mmol/L BUN (9-20) mg/dL Creatinine (0.66-1.25) mg/dL Glucose (74-99) mg/dL POC Glucose (mg/dL) 153 H 57 L 182 H (75-99) mg/dL Calcium (8.4-10.2) mg/dL Phosphorus (2.5-4.5) mg/dL Total Bilirubin (0.2-1.3) mg/dL AST (17-59) U/L ALT (21-72) U/L Alkaline Phosphatase (38-126) U/L Total Protein (6.3-8.2) g/dL Albumin (3.5-5.0) g/dL 03/20/18 03/20/18 03/20/18 Range/Units 16:43 16:56 23:14 WBC (3.8-10.6) k/uL RBC (4.30-5.90) m/uL Hgb (13.0-17.5) gm/dL Hct (39.0-53.0) % MCV (80.0-100.0) fL RDW (11.5-15.5) % Plt Count (150-450) k/uL Neutrophils # (Manual) (1.3-7.7) k/uL Metamyelocytes # (Man) (0) k/uL Nucleated RBCs (0-0) /100 WBC Sodium (137-145) mmol/L Carbon Dioxide (22-30) mmol/L BUN (9-20) mg/dL Creatinine (0.66-1.25) mg/dL Glucose (74-99) mg/dL POC Glucose (mg/dL) 199 H 194 H 176 H (75-99) mg/dL Calcium (8.4-10.2) mg/dL Phosphorus (2.5-4.5) mg/dL Total Bilirubin (0.2-1.3) mg/dL AST (17-59) U/L ALT (21-72) U/L Alkaline Phosphatase (38-126) U/L Total Protein (6.3-8.2) g/dL Albumin (3.5-5.0) g/dL 03/21/18 03/21/18 Range/Units 04:50 04:50 WBC 12.7 H (3.8-10.6) k/uL RBC 2.00 L (4.30-5.90) m/uL Hgb 6.7 L* (13.0-17.5) gm/dL Hct 21.2 L (39.0-53.0) % MCV 106.0 H (80.0-100.0) fL RDW 23.5 H (11.5-15.5) % Plt Count 32 L (150-450) k/uL Neutrophils # (Manual) 10.40 H (1.3-7.7) k/uL Metamyelocytes # (Man) 0.38 H (0) k/uL Nucleated RBCs 13 H (0-0) /100 WBC Sodium 134 L (137-145) mmol/L Carbon Dioxide 14 L (22-30) mmol/L BUN 2 L (9-20) mg/dL Creatinine 1.85 H (0.66-1.25) mg/dL Glucose 196 H (74-99) mg/dL POC Glucose (mg/dL) (75-99) mg/dL Calcium 7.2 L (8.4-10.2) mg/dL Phosphorus 5.0 H (2.5-4.5) mg/dL Total Bilirubin 2.1 H (0.2-1.3) mg/dL AST 482 H (17-59) U/L ALT 195 H (21-72) U/L Alkaline Phosphatase 274 H (38-126) U/L Total Protein 4.1 L (6.3-8.2) g/dL Albumin 1.5 L (3.5-5.0) g/dL Microbiology - Last 24 Hours (Table) 03/16/18 21:16 Blood Culture - Preliminary Blood No Growth after 96 hours 03/17/18 13:00 Gram Stain - Final Knee - Left Wound Culture - Final Proteus mirabilis Sandra albicans Stenotrophomonas maltophilia Assessment and Plan (1) Sacral decubitus ulcer Narrative/Plan: Patient has had further decline. Family planning hospice measures today. We' ll sign off. Current Visit: Yes Status: Acute Code(s): L89.159 - PRESSURE ULCER OF SACRAL REGION, UNSPECIFIED STAGE SNOMED Code(s): 455163513
[2018-03-21] MEDS ORDERED: MORPHINE SULFATE 2 MG/ML SYRINGE IVP ONE (09:30)
[2018-03-21] MEDS ORDERED: SCOPOLAMINE 1.5MG/72HR PATCH TRANSDERM SCH (09:30)
[2018-03-21 09:35] VITALS: TEMP 96
[2018-03-21] MEDS ORDERED: MORPHINE SULFATE (100 MG/2 ML) 100 MG in SODIUM CHLORIDE 0.9% 100 ML IV SCH (10:00)
--- NOTE | 2018-03-21 11:10 | PN ---
PROGRESS NOTE DATE OF SERVICE: March 21, 2018. This is a 42-year-old male who was admitted back on March 16. He has a history of mental status changes secondary to sepsis, ongoing hypoglycemia, a draining wound on the left stump, decubitus ulcer on his coccyx, stage III bilateral pleural effusions, end-stage renal disease currently on hemodialysis, diabetes mellitus, hypertension, hyperlipidemia, left AKA January 2018 for osteomyelitis, macrocytic anemia, and history of migraine cephalgia. Yesterday, I had a long discussion with the father. He finally agreed to make the patient DNR and comfort measures. I think that is the appropriate thing. The patient has shown no improvement here. The patient is very poorly responsive and nearly unresponsive. He remains on 3 L nasal cannula. Because of persistent hypoglycemia, he remains on D10 W at 40 mL an hour. He was on norepinephrine at 8 mcg/minute for persistent hypotension. Apparently later today, hospice may come to see the patient. A couple days ago, because of lack of IV access, I put a right femoral vein triple-lumen catheter in. Again, the patient is very poorly responsive. PAST MEDICAL PROBLEMS: Significant and includes end-stage renal disease, currently on hemodialysis, diabetes mellitus, diabetic retinopathy, hypertension, hyperlipidemia, left eye cataract, recent left AKA because of nonhealing left lower extremity diabetic ulcers and osteomyelitis. Current vital signs reviewed. Temperature 96 degrees probably reflecting sepsis, heart rate 100, respiratory rate is 27, blood pressure 87/53 with mean 64, on 8 mics Levophed and saturation on 3 L is 96%. The patient is unresponsive. Just moans every now and again. HEENT examination is grossly unremarkable. Mucous membranes are dry. Nasal O2 in place. Neck is supple. Full range of motion. No adenopathy or thyromegaly. Neck veins are flat. Cardiovascular examination reveals tachycardia. It is irregular. S1, S2 normal. Heart rate over 100. No distinct murmur noted. Lungs reveal coarse inspiratory and expiratory rhonchi. No wheezes or crackles. Breath sounds are equal. Abdomen is soft. No bowel sounds are noted. Extremities are intact. He has got a left [id number] amputation. Some chronic venous stasis changes are noted in his right lower extremity. Skin without rash. Neurologic examination is not able to be evaluated. Chest x-ray shows changes of heart failure. LABORATORY DATA: Include a white count 12.7, hemoglobin 6.7, hematocrit 21.2, and platelet count is 32,000. Sodium 134, potassium 4.4, chloride 101, CO2 14, anion gap 19, BUN is 2, and creatinine is 1.85. The patient has an anion gap metabolic acidosis because of his renal failure and ongoing sepsis with lactic acidemia. AST 42, ALT 195, alkaline phosphatase 274, albumin is only 1.5. Microbiologic study show Proteus species on the buttock wound and Proteus and Stenotrophomonas on the left knee stump wound. Medications are reviewed. Many of his medications have been discontinued in anticipation of comfort measures. He remains on norepinephrine though. Family members are on the way to see him before additional medications are discontinued. ASSESSMENT: 1. Profound sepsis with septic shock secondary to infection at both the left leg stump site and buttock ulceration. 2. Severe lactic acidemia. 3. Anion gap metabolic acidosis secondary to sepsis and renal failure. 4. Mental status changes, secondary to sepsis. 5. Persistent hyperglycemia secondary to septic shock and sepsis. 6. Draining wound, left stump, positive for Proteus mirabilis. 7. Decubitus ulcer on coccyx, stage III, positive for Stenotrophomonas and Proteus. 8. Shock liver. 9. Congestive heart failure and fluid overload. 10.End-stage renal disease, currently on hemodialysis. 11.Diabetes mellitus type 2, with diabetic retinopathy and peripheral vascular disease. 12.Hypertension by history. 13.History of hyperlipidemia. 14.Status post left AKA, January 2018 secondary to osteomyelitis. 15.Chronic macrocytic anemia. 16.History of migraine cephalgia. PLAN: The patient is a DNR. I had a long talk with the family yesterday. Primarily with his father. Father makes all decisions for his son. The father has agreed to proceed to comfort measures. We think this is appropriate. The patient's medications are reviewed. Hospice is been called. The patient remains on Levophed pending some additional family members to come and see the patient. All unnecessary medications were discontinued. His prognosis is obviously very poor. No additional recommendations are made. We will make additional recommendations where appropriate. Critical care time is 33 minutes. MMNORBERTOL / HERMANN: [id number] /
[2018-03-21 13:14] VITALS: BP 100/67; PULSE 90; RESP 15
--- NOTE | 2018-03-21 23:13 | DS ---
DISCHARGE SUMMARY PRIMARY CAUSE OF : 1. Septic shock secondary from sepsis from left leg wound infection as a sacral infection and culture showing Proteus Sandra and Stenotrophomonas maltophilia. OTHER DIAGNOSES: 1. Left above-knee amputation. 2. Sacral stage III wound present on admission. 3. Chronic kidney stage 4 on hemodialysis. 4. Anemia macrocytic secondary to renal failure. 5. Hypokalemia. 6. Hypoglycemia. 7. Elevated LFTs, possibly hepatitis. 8. Hypertension. 9. Change in mental status, acute metabolic encephalopathy, multifactorial. 10.Bilateral pleural effusion. HISTORY OF PRESENT ILLNESS: This 42-year-old gentleman with a past medical history of multiple medical problems as mentioned earlier, being followed by Dr. Barlow in the outpatient setting is admitted with weakness and hypotension. The patient had features of sepsis and left leg cellulitis, sacral decubitus. Treated in conjunction with multiple consultants, on broad spectrum IV antibiotics. The cultures are noted, but however the patient did not improve. The patient had change in mental status and had dialysis could be hardly done because of the septic shock and it has to be done after correction of the shock. In any case, the patient deteriorated rapidly and the case discussed at length with the family and family would like to go with comfort measures at this time. Please refer to the staff notes and other multiple consultants notes and Dr. Marsh's notes for further information. Comfort care was placed and the patient succumbed to his above illnesses. The prognosis was extremely guarded throughout the hospital stay. MMODL / IJN: [id number] /
--- NOTE | 2018-03-24 08:34 | CDI ---
Last Revision, March 2017 Documentation Clarification Form Date: 03/24/18 From: Ellie Nesbitt Yuliana Jose, [employer] Manager Hours-8:30 am & 5 pm M-F Admit Date: 03/16/2018 6:31:00 PM Patient Name: Cristo Macario Visit Number: [id number] Discharge Date: 03/21/18 ATTENTION: The Clinical Documentation Specialists (CDI) and [facility] Coding Staff appreciate your assistance in clarifying documentation. Please respond to the clarification below the line at the bottom and electronically sign. The CDI & [facility] Coding staff will review the response and follow-up if needed. Please note: Queries are made part of the Legal Health Record. If you have any questions, please contact the author of this message via ITS. Phong Flores , DO History/Risk Factors: Heart failure, HTN, ESRD, DM, S/P AKA w infection, sepsis w septic shock Clinical Indicators: abd/pelvis CT revealed pleural effusion and cardiomegaly VS/Pulse OX: BNP: none Echocardiogram Results: left ventricular systolic function is normal with an EF between 55-60% Chest X Ray: admission-small basilar pleural effusions and mild atelectasis; -Worsening CHF exacerbation as there is cardiomegaly with worsening central vascular congestion and developing central alveolar edma, there is enlarging right greater than left small to moderate-sized bilateral pleural effusions also noted. Treatment: under treatment for sepsis and septic shock, hemodialysis In your professional opinion, can you please clarify the acuity and type of CHF if known? Systolic Heart Failure Diastolic Heart Failure Systolic & Diastolic Heart Failure Acute Chronic Acute on Chronic Heart Failure Unable to Determine Other, please specify Please continue to document in your progress notes and discharge summary in order to capture severity of illness and risk of mortality. Include clinical findings that support your diagnosis. No CHF MTDD
== END 2018-03-21 17:20 | disposition expired | DRG 871 ==
LOC: EC 11:31 → 3SCARD 18:31 → 2SICU 03-17 07:20
PROVIDERS: ADMIT Hospitalist; ATTEND Hospitalist
PROC: 30233N1 Transfusion of Nonautologous Red Blood Cells into Peripheral Vein, Percutaneous Approach (ICD-10-PCS; 2018-03-16)
PROC: 5A1D70Z Performance of Urinary Filtration, Intermittent, Less than 6 Hours Per Day (ICD-10-PCS; 2018-03-17)
PROC: 5A1D70Z Performance of Urinary Filtration, Intermittent, Less than 6 Hours Per Day (ICD-10-PCS; 2018-03-18)
PROC: 06HY33Z Insertion of Infusion Device into Lower Vein, Percutaneous Approach (ICD-10-PCS; principal; 2018-03-19)
PROC: 5A1D70Z Performance of Urinary Filtration, Intermittent, Less than 6 Hours Per Day (ICD-10-PCS; 2018-03-20)
DX: A41.9 Sepsis, unspecified organism (principal); N18.6 End stage renal disease; L89.153 Pressure ulcer of sacral region, stage 3; K72.00 Acute and subacute hepatic failure without coma; R65.21 Severe sepsis with septic shock; G93.41 Metabolic encephalopathy; T87.44 Infection of amputation stump, left lower extremity; E11.52 Type 2 diabetes mellitus with diabetic peripheral angiopathy with gangrene; E87.1 Hypo-osmolality and hyponatremia; R18.8 Other ascites; E87.2 Acidosis; I12.0 Hypertensive chronic kidney disease with stage 5 chronic kidney disease or end stage renal disease; L03.312 Cellulitis of back [any part except buttock and flank]; J98.11 Atelectasis; L03.116 Cellulitis of left lower limb; Z66 Do not resuscitate; Z51.5 Encounter for palliative care; E11.22 Type 2 diabetes mellitus with diabetic chronic kidney disease; E11.649 Type 2 diabetes mellitus with hypoglycemia without coma; E11.319 Type 2 diabetes mellitus with unspecified diabetic retinopathy without macular edema; E11.65 Type 2 diabetes mellitus with hyperglycemia; E11.36 Type 2 diabetes mellitus with diabetic cataract; E83.9 Disorder of mineral metabolism, unspecified; D63.1 Anemia in chronic kidney disease; E87.6 Hypokalemia; K21.9 Gastro-esophageal reflux disease without esophagitis; E78.5 Hyperlipidemia, unspecified; K82.8 Other specified diseases of gallbladder; D53.9 Nutritional anemia, unspecified; H54.8 Legal blindness, as defined in USA; G40.909 Epilepsy, unspecified, not intractable, without status epilepticus; E86.0 Dehydration; F41.9 Anxiety disorder, unspecified; G47.00 Insomnia, unspecified; I87.8 Other specified disorders of veins; G43.909 Migraine, unspecified, not intractable, without status migrainosus; Z99.2 Dependence on renal dialysis; Z79.899 Other long term (current) drug therapy; Z86.19 Personal history of other infectious and parasitic diseases; Z91.018 Allergy to other foods; Z82.49 Family history of ischemic heart disease and other diseases of the circulatory system; Z83.49 Family history of other endocrine, nutritional and metabolic diseases; Z81.8 Family history of other mental and behavioral disorders; Z83.3 Family history of diabetes mellitus; Y83.5 Amputation of limb(s) as the cause of abnormal reaction of the patient, or of later complication, without mention of misadventure at the time of the procedure
CPT/HCPCS: 36415; 70450; 71045; 71046; 74176; 80053; 80164; 80202; 82140; 82533; 82550; 82553; 82728; 83036; 83540; 83550; 83605; 83690; 83735; 83970; 84100; 84132; 84443; 84484; 85025; 86706; 86850; 86900; 86901; 86920; 87040; 87070; 87077; 87186; 87205; 87340; 90935; 93005; 93306; 96361; 96365; 96366; 96368; 96372; 96375; 96376; 99285